=== PATIENT | male | born 1955 | race Caucasian/White ===

== ENCOUNTER → 2023-08-15 07:40 | Outpatient (REF) | payer MEDICARE, OTHER, SELFPAY | LOC: HWRAD 07:40 | PROVIDERS: ATTENDING PHYSICIAN Student in an Organized Health Care Education/Training Program; FAMILY PHYSICIAN Family Medicine | DX: R80.9 Proteinuria, unspecified (principal) | CPT/HCPCS: 76770 ==

== ENCOUNTER 2024-04-22 20:51 | Inpatient (IN) | payer MEDICARE, OTHER, SELFPAY ==
[2024-04-22] VITALS (23 sets, daily range): BP systolic 128–250; BP diastolic 63–132; BMI 35.0
[2024-04-22 18:11] LABS: % Basophils 0.7 % (0-2); % Eosinophils 6.3 % (0-6); % Immature Granulocytes 0.4 % (0-0.5); % Monocytes 8.1 % (1.7-9.3); % Neutrophils 68.5 % (42.2-75.2); Absolute Basophils 0.1 10^3/uL (0-0.2); Absolute Eosinophils 0.6 10^3/uL (0-0.7); Absolute Lymphocytes 1.5 10^3/uL (1.2-3.4); Absolute Monocytes 0.7 10^3/uL (0.1-0.6); Absolute Neutrophils 6.2 10^3/uL (1.4-6.5); Hematocrit 34.2 % (39.0-52.0); Hemoglobin 11.3 g/dL (13.0-18.0); Mean Corpuscular Hgb 31.6 pg (27.0-31.0); Mean Corpuscular Volume 95.5 fL (80.0-94.0); Mean Platelet Volume 10.6 fL (7.4-10.4); Nucleated Red Blood Cells % 0 % (-); Platelet Count 174 10^3/uL (130-400); Red Blood Cell Count 3.58 10^6/uL (4.70-6.10); Red Cell Dist. Width 13.7 % (11.5-14.5); White Blood Cell Count 9.1 10^3/uL (4.8-10.8)
[2024-04-22 18:29] LABS: ALT (SGPT) 16 U/L (0-50); AST (SGOT) 19 U/L (17-59); Albumin 2.9 g/dl (3.5-5.0); Alkaline Phosphatase 121 U/L (38-126); Blood Urea Nitrogen 42 mg/dl (9-20); Calcium 8.5 mg/dl (8.4-10.2); Carbon Dioxide 23 mmol/L (22-30); Chloride 110 mmol/L (98-107); Glucose 107 mg/dl (70-99); Potassium 4.5 mmol/L (3.5-5.1); Sodium 141 mmol/L (135-145); Total Bilirubin 0.4 mg/dl (0.2-1.3); Total Protein 5.3 g/dl (6.3-8.2); eGFR 16.11
[2024-04-22 18:30] LABS: Lipase 543 U/L (23-300)
[2024-04-22 18:35] LABS: NT-proBNP > 27000 pg/ml
[2024-04-22] MEDS: TRANDATE 20 MG IV (19:11)
--- NOTE | 2024-04-22 19:38 | ED.GENMED ---
History of Present Illness
General
Chief Complaint: Abdominal Pain
Source: patient
Exam Limitations: none
Time Seen by Provider: 04/22/24 18:52
Nursing documentation reviewed up to this point in time: agreed with
History of Present Illness
History of Present Illness:
69-year-old male presents with swelling in his scrotum abdominal distention cough shortness of breath chronic lower extremity edema hypertension followed by nephrology question of A-fib previously does not see cardiology started hydralazine recently
takes Bumex apparently, has swelling in his scrotum saw his PCP who thought he might have a hernia send him to see a surgeon told he did not have a hernia, states he gets short of breath when he walks cannot lie flat, weight is gone up although he
did lose some weight due to being on a weight loss medication
Past History
Past History
ED Past Medical History: HTN, Hypercholesterolemia and NIDDM; Negative CHF, IL or Valvular disease
Social History
Tobacco: Former smoker
Alcohol: None
Drug: None
Personal:
Living: with family
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
Review of Systems
Review of Systems
All Other Systems: Not applicable
Constitutional: Reports weight gain; Denies fever or fatigue
EENT: Reports no symptoms
Respiratory: Reports no symptoms
: Reports no symptoms
Musculoskeletal: Reports no symptoms
Skin: Reports no symptoms
Neurological: Reports no symptoms
Phy Exam
Physical Exam
Physical Exam:
Physical Exam
General: Hypertensive male sitting up
Neck: JVD
Heart: Regular with a S3
Lungs: Crackles
Abdomen: Obese with anasarca and the screw
Neuro: alert and oriented. no focal neurological deficits
Skin: no rash
Psychiatric: well kept. interactive and cooperative
Extremities: Edema is present
Course
Orders/Labs/Results
Orders:
Orders
04/22/24 18:04
Complete Blood Count/With Diff Urgent
Comprehensive Metabolic Panel Urgent
Lipase Urgent
Pro-BNP [NT-proBNP] Urgent
04/22/24 19:01
Bladder Scan- Treatment ONCE
04/22/24 19:02
Electrocardiogram (*1) Urgent
Reason for Study: Shortness of Breath
EKG- Treatment ONCE
04/22/24 19:05
Labetalol HCl [Trandate] 20 mg IV NOW STA
04/22/24 19:33
Troponin I Urgent
04/22/24 19:36
CR Chest Portable - 1 View Urgent
Comment:
Reason For Exam: soob
Reason Study Needs to be Portable: Patient Unstable
04/22/24 19:45
Bumetanide [Bumex] 2 mg IV NOW STA
Nicardipine 40 mg/200 ml [Cardene] 40 mg in 200 ml IV PER PROTOCOL
Initial dose in mg/hr, then titrate:: 5
Titrate to keep:: SBP 140 - 160 mmHg
Titrate by mg/hr:: 2.5 mg/hr
Frequency of titrations (minutes):: 5-15 minutes
Maximum dose in mg/hr:: 15
Begin to taper infusion when:: Remained at goal for 2hrs
Taper by mg/hr:: 2.5 mg/hr
Frequency of taper (minutes) if patient maintains goal:: every 15-30 minutes
Taper to off?: Yes
If infusion off & no longer maintaining goal:: Contact Provider
04/22/24 19:47
Urinalysis Urgent
Urine Protein/Creat Ratio (Random) [Protein/Creat Ratio (Random)] Routine
Abnormal Lab Results
04/22/24
18:04
RBC 3.58 L 10^6/uL
(4.70-6.10)
Hgb 11.3 L g/dL
(13.0-18.0)
Hct 34.2 L %
(39.0-52.0)
MCV 95.5 H fL
(80.0-94.0)
MCH 31.6 H pg
(27.0-31.0)
MPV 10.6 H fL
(7.4-10.4)
Absolute Monos (auto) 0.7 H 10^3/uL
(0.1-0.6)
Lymphocytes % 16.0 L %
(20.5-51.1)
Eosinophils % 6.3 H %
(0-6)
Chloride 110 H mmol/L
(98-107)
BUN 42 H mg/dl
(9-20)
Creatinine 3.9 H mg/dL
(0.7-1.3)
Glucose 107 H mg/dl
(70-99)
Total Protein 5.3 L g/dl
(6.3-8.2)
Albumin 2.9 L g/dl
(3.5-5.0)
Lipase 543 H U/L
(23-300)
04/22/24 18:04
04/22/24 18:04
Vital Signs
Initial and Last Documented VS:
Initial Vital Signs
Temp Pulse Resp BP Pulse Ox
97.9 F 83 20 250/131 96
04/22/24 17:48 04/22/24 17:48 04/22/24 17:48 04/22/24 17:48 04/22/24 17:48
Last Documented Vital Signs
Temp Pulse Resp BP Pulse Ox
97.9 F 87 21 228/132 95
04/22/24 17:48 04/22/24 19:05 04/22/24 19:05 04/22/24 19:11 04/22/24 19:05
MDM/Problems Addressed
Differential Diagnosis Includes:
Hypertensive urgency ACS CHF ACS late presentation IL conceivably pneumonia doubt PE
MDM/Problems Addressed:
Hypertension volume overload renal failure
Chronic conditions affecting care: HTN
Acute Exacerbation and/or Progression of Chronic Illness: HTN
*Radiology
Radiology exam reviewed: preliminary read by ED provider
*Pulse Oximetry
Patient hypoxic: yes
Comment: 92
*EKG
Interpreted by ED Provider?: Yes
Interpretation: abnormal
Comparison EKG: changes noted
Heart Rate: 7
Rate: normal
Rhythm: sinus
Ischemia: non-specific ST changes
*Escrow Secretary Interpretation
Rate: normal
Interpretation: normal
Heart Rate: 78
Rhythm: sinus
*Critical Care Note
Total Time (30-74mins, 75-104mins- exclusive of procedures): 32
Data Reviewed
Review of Other/Old Records Reveals: Other (Prior EKG)
Source: patient
Update Note
Update Note:
Update patient severely hypertensive exam to be volume overloaded, subacute onset EKG noted looks like he has anterior Q waves perhaps this is a the late presentation IL given labetalol, hydralazine earlier today p.o. will start Cardene, started on
IV diuretic
ED Attending Note
-
Portions of this chart may have been created with voice recognition software.� Occasional wrong word or��sound alike� substitutions may have occurred due to the inherent limitations of voice recognition software.
Discharge Plan
Interventions
Interventions:
*Risk Screen - Suicide Last Done: 04/22/24 17:48
*General Assessment Last Done: 04/22/24 17:48
*Neglect/Abuse Screening Last Done: 04/22/24 19:06
ED- Fall Risk Assessment Last Done: 04/22/24 17:48
*ED COVID-19 Vaccine History Last Done: 04/22/24 17:48
WG-Mxidtl-Feunnddesm Assessment Last Done: 04/22/24 19:06
Discharge Date and Time
Print Language: ARMENIAN
[2024-04-22] MEDS: CARDENE 200 IV (19:40)
[2024-04-22] MEDS: BUMEX 2 MG IV (19:53)
--- NOTE | 2024-04-22 20:05 | HPS.HSE ---
Family Physician
-
Family Physician:
Chief Complaint
-
SOB
History of Present Illness
Patient is a 69y M with PMH significant for hypertension and DM-II who presents to ED complaining of SOB that has been progressive over the past 2 weeks or so. Patient has chronic, wurumvjzw-zh-rfzudvw hypertension with recent medication
changes. He has noted progressive dyspnea with exertion as well as significant orthopnea over the past two weeks. He becomes significantly SOB when lying flat, but feels better with sitting or standing. He has chronic LE edema - though he states
he has not appreciated any significant change in his swelling recently. He does not monitor his weight regularly at home. Patient denies any chest pain, palpitations, lightheadedness, dizziness, fevers / chills, etc.
He denies any prior history of similar symptoms.
Medical History
Past Medical History
Past Medical History: Reports Other
Additional Past Medical History:
Hypertension
DM-II
Obesity
Past Surgical History: Reports Other
Additional Past Surgical History:
T&A
Social History
Tobacco: Former Smoker (Quit smoking 30 years ago. Approx 10 pack years total use.)
Alcohol: Occasional
Drug: None
Family History
Family History: Not pertinent
Allergies / Home Medications
Allergies reflects when Allergies were last updated in [facility].
Home Medications with original date entered in [facility]
Allergy/Medication List:
Allergies
Allergy/AdvReac Type Severity Reaction Status Date / Time
No Known Allergies Allergy Verified 04/22/24 17:56
Home Medications
aspirin 81 mg chewable tablet 81 mg PO DAILY 04/22/24
atorvastatin 20 mg tablet 20 mg PO HS 04/22/24
bumetanide 1 mg tablet 1.5 mg PO BID 04/22/24
carvedilol 25 mg tablet 25 mg PO BID 04/22/24
hydralazine 25 mg tablet 25 mg PO BID 04/22/24
hydrocodone 7.5 mg-acetaminophen 325 mg tablet 1 tab PO TIDPRN PRN arthritis pain 04/22/24
losartan 100 mg tablet 100 mg PO DAILY 04/22/24
tirzepatide 5 mg/0.5 mL subcutaneous pen injector (Mounjaro) 5 mg SC Q2W 04/22/24
Review of Systems
-
History Source: Patient
A 12 point ROS was completed and negative except as noted: Yes
Constitutional: Reports Fatigue; Denies Fever or Chills
EENT: Denies Sore Throat
Respiratory: Reports Trouble Breathing; Denies Cough
Cardiac: Denies Chest Pain or Palpitations
Abdomen/GI: Denies Abdominal Pain, Nausea, Vomiting or Diarrhea
: Denies Dysuria, Frequency or Flank Pain
Musculoskeletal: Reports Edema; Denies Joint Pain
Neurological: Denies Dizzy or Headache
Psych: Denies Depression or Anxiety
Physical Exam
Vital Signs
Vital Signs
Temp Pulse Resp BP Pulse Ox
97.9 F 87 21 219/102 95
04/22/24 17:48 04/22/24 19:05 04/22/24 19:05 04/22/24 19:53 04/22/24 19:05
Physical Exam
General: Other (69y M in mild distress due to dyspnea.)
HEENT: Moist mucous membranes, PERRLA and Other (No JVD.)
Respiratory: Other (Scattered coarse breath sounds. No wheezing.)
Cardiac: S1/S2 and Regular Rhythm; No Murmur
GI: Soft, Non Tender, Non Distended and Normal Bowel Sounds
Musculoskeletal: Other (4+ pitting edema extending into the groin / buttocks.)
Neuro: AO x 3
Laboratory Results
-
04/22/24 18:04
04/22/24 18:04
Laboratory Results
Total Bilirubin 0.4 mg/dl (0.2-1.3) 04/22/24 18:04
AST 19 U/L (17-59) 04/22/24 18:04
ALT 16 U/L (0-50) 04/22/24 18:04
Alkaline Phosphatase 121 U/L (38-126) 04/22/24 18:04
Troponin I Cancelled 04/22/24 19:03
Lipase 543 U/L (23-300) H 04/22/24 18:04
Impression/Plan
-
A/P: Patient is a 69y M with PMH significant for hypertension and DM-II who presents to ED complaining of SOB that has been progressive over the past 2 weeks.
Hypertensive Emergency
Acute Heart Failure - Unknown Type
- Admit to ICU for further evaluation and treatment.
- Patient presents with markedly elevated BP and evidence of end-organ impairment in the form of CHF and LIA.
- IV nicardipine started in the ED - continue for now and titrate as needed for BP control.
- IV diuresis and follow for clinical improvement.
- Check Echo.
- Cardiology and Nephrology consults.
- Adjust PO med regimen as needed for improved BP control and titrate off of IV infusions as able.
- Serial troponin to rule out new ischemia.
LIA on CKD IV
- SCr = 3.9 compared to recent baseline of 2.9.
- Followed by Nephrology as an outpatient.
- Hold losartan acutely.
- IV diuresis as noted above.
- Follow for changes in SCr.
DM-II
- Stable. Patient states that he started Mounjaro at the beginning of 2023.
- Significant weight loss initially and he was taken off of his insulin therapy.
- Follow glucose and cover with SSI as needed.
- Update A1C.
Obesity due to excess calories
- Weight loss over the past year on Mounjaro.
- Hold during inpatient stay but resume at discharge.
DVT Prophylaxis: Subcut Heparin
Code Status: Full
--- NOTE | 2024-04-22 20:22 | PTCARENOTE ---
Received patient AAOx3, following commands, reporting 2/10 pain in right ribs, tolerable for patient. Normal sinus, 80s, BP 120s/70s, normothermic. Palpable radial and pedal pulses b/l, no edema. On 15 liters midflow, saturating 98%, expiratory
wheeze noted. Abdomen soft, round, hypoactive bowel sounds. Gomez in place for retention, draining yellow urine. Skin intact, bruising throughout arms. PIVs and midline patent, WNL. Call menjivar within reach.
[2024-04-22 20:28] LABS: Troponin I 0.041 ng/ml
[2024-04-22 20:36] LABS: Urine Albumin 3+ (Neg - Trace); Urine Bilirubin Negative (Negative); Urine Character Clear (Clear); Urine Color Straw; Urine Glucose Trace (Negative); Urine Ketone Negative (Negative); Urine Leukocyte Negative (Negative); Urine Nitrite Negative (Negative); Urine Occult Blood 1+ (Negative); Urine Urobilinogen Negative (Neg - 1+)
[2024-04-22 21:00] LABS: Urine Squamous Cell None seen /LPF (Few)
[2024-04-22 21:01] LABS: Urine Red Blood Cell 0-2 /HPF (0-2); Urine White Cell None Seen /HPF (0-5)
[2024-04-22 21:39] LABS: Protein/creatinine Ratio 22.7; Urine Protein 750 mg/dl
[2024-04-22] MEDS: LIPITOR 20 MG PO (21:50)
[2024-04-22 21:53] LABS: INR 0.99; PT 13.6 Sec (11.4-14.6)
[2024-04-22 21:54] LABS: APTT 30.7 Sec (23.4-35.0)
[2024-04-22 21:58] LABS: Magnesium 2.2 mg/dl (1.6-2.3); Phosphorus 4.6 mg/dl (2.5-4.5)
--- NOTE | 2024-04-22 22:06 | PTCARENOTE ---
Received patient AAOx3, RAND, ambulated from stretcher to bed without any issues. Son at bedside. Normal sinus, 80s-90s, normothermic. Titrating cardene to maintain SBP 160-180. +3 b/l LE edema, weak palpable pedal pulses. Palpable radial pulses b/l.
+2 b/l hand edema. Lung sounds clear, diminished, 95% on 2 liters nasal cannula. Positive bowel sounds, patient reports BMs are regular. Urinal to void. Skin intact. PIVs patent, WNL. CHG bath done. Call menjivar within reach.
[2024-04-22 22:08] LABS: Troponin I 0.048 ng/ml
[2024-04-22 22:10] LABS: Glucose - Point of Care 193 mg/dl (70-99)
[2024-04-22 22:27] LABS: TSH Reflex To Free T4 3.01 uIU/ml (0.47-4.68)
[2024-04-23] VITALS (67 sets, daily range): BP systolic 120–189; BP diastolic 60–104; BMI 36.0
--- NOTE | 2024-04-23 | PTCARENOTE ---
Patient off cardene gtt. Otherwise patient assessment unchanged from previous, call menjivar within reach.
--- NOTE | 2024-04-23 05:19 | PTCARENOTE ---
Labs sent, patient restarted on cardene gtt for SBP of 188. Otherwise patient assessment unchanged from previous. Call menjivar within reach.
[2024-04-23 05:36] LABS: Hematocrit 30.1 % (39.0-52.0); Hemoglobin 9.9 g/dL (13.0-18.0); Mean Corp Hgb Conc. 32.9 g/dL (33.0-37.0); Mean Corpuscular Hgb 30.9 pg (27.0-31.0); Mean Corpuscular Volume 94.1 fL (80.0-94.0); Mean Platelet Volume 10.8 fL (7.4-10.4); Platelet Count 159 10^3/uL (130-400); Red Cell Dist. Width 13.5 % (11.5-14.5); White Blood Cell Count 7.1 10^3/uL (4.8-10.8)
[2024-04-23] MEDS: TYLENOL 650 MG PO (05:57)
[2024-04-23 06:00] LABS: Troponin I 0.082 ng/ml
[2024-04-23 06:03] LABS: Blood Urea Nitrogen 43 mg/dl (9-20); Calcium 8.1 mg/dl (8.4-10.2); Carbon Dioxide 23 mmol/L (22-30); Chloride 111 mmol/L (98-107); Estimated Creatinine Clearance 24 ml/min; Glucose 88 mg/dl (70-99); HDL Cholesterol 55 mg/dl; LDL Cholesterol, Calculated 48 mg/dl; Potassium 3.8 mmol/L (3.5-5.1); Sodium 140 mmol/L (135-145); Total Cholesterol 121 mg/dl (50-199); Triglyceride 90 mg/dl (10-149); Very Low Density Lipoprotein 18 mg/dl (0-30); eGFR 15.63
[2024-04-23 06:47] LABS: Hepatitis C Antibody Negative (Negative)
[2024-04-23 07:52] LABS: Glucose - Point of Care 88 mg/dl (70-99)
[2024-04-23] MEDS: NOVOLOG FLEXPEN-MODERATE RESISTANCE SC ×2 (08:02→12:27)
[2024-04-23] MEDS: COREG 25 MG PO ×2 (08:14→19:54)
[2024-04-23] MEDS: APRESOLINE 25 MG PO (08:14)
[2024-04-23] MEDS: HEPARIN 5000 UNITS SC (08:18)
--- NOTE | 2024-04-23 09:00 | W.CON.NEPH ---
Addendum entered and electronically signed by Monster Farrell, 04/23/24 09:24:
Will review echocardiogram which was completed this more
Will consider adding clonidine next for his hypertension as he remains tachycardic
Original Note:
Consultation
-
Date/Time Consultation Requested: 04/23/24 700 AM
Date/Time Consultation Performed: 04/23/24 900 AM
Requesting Provider: Dr. Estevez
Performing Provider: Dr. Farrell
Reason for Consultation: LIA/CKD 4/HTN crisis
Medical History
-
Chief Complaint: Acute kidney injury/hypertensive emergency
History of Present Illness:
The patient is a 69-year-old male with a past medical history of multidrug resistant hypertension of longstanding duration. In the outpatient setting he has been treated with a combination of Bumex carvedilol hydralazine and losartan. His blood
pressure has been very difficult to control in the outpatient setting. He also has a history of longstanding diabetes but is only currently maintained on Mounjaro. He does have a history of chronic kidney disease and maintains a baseline
creatinine in the low threes presumed due to his underlying hypertension and diabetes. He presented to the hospital last evening complaining of shortness of breath that has been progressive over the past 2 weeks. He notes associated orthopnea. On
presentation to the hospital his systolic blood pressure was over 200 and his diastolic blood pressure was greater than 100. He was transferred to the intensive care unit for hypertension emergency and placed on a Cardene drip. Of note he had
associated acute kidney injury with a creatinine of 4.
Past Medical History
Hypertension
DM-II
Obesity
Dyslipidemia
Obesity
Social History
Tobacco: Former Smoker
Alcohol: Occasional
Drug: None
Family History
No CKD
Allergies / Home Medications
Allergy/AdvReac Type Severity Reaction Status Date / Time
No Known Allergies Allergy Verified 04/22/24 17:56
�Medication �Instructions �Recorded �Confirmed �Type
aspirin 81 mg chewable tablet 81 mg PO DAILY 04/22/24 04/22/24 History
atorvastatin 20 mg tablet 20 mg PO HS 04/22/24 04/22/24 History
bumetanide 1 mg tablet 1.5 mg PO BID 04/22/24 04/22/24 History
carvedilol 25 mg tablet 25 mg PO BID 04/22/24 04/22/24 History
hydralazine 25 mg tablet 25 mg PO BID 04/22/24 04/22/24 History
hydrocodone 7.5 mg-acetaminophen 1 tab PO TIDPRN PRN arthritis pain 04/22/24 04/22/24 History
325 mg tablet
losartan 100 mg tablet 100 mg PO DAILY 04/22/24 04/22/24 History
tirzepatide 5 mg/0.5 mL 5 mg SC Q2W 04/22/24 04/22/24 History
subcutaneous pen injector
(Jam)
Review of Systems
-
History Source: Patient
All other systems: Negative unless noted
Respiratory: Other (Shortness of breath orthopnea)
Musculoskeletal: Edema (Chronic edema)
Physical Exam
Vital Signs
Vital Signs
Temp Pulse Resp BP Pulse Ox
98.2 F 92 18 169/86 94
04/23/24 08:18 04/23/24 08:14 04/23/24 06:30 04/23/24 08:14 04/23/24 06:30
Lab Results
04/23/24 05:17
04/23/24 05:17
WBC 7.1 10^3/uL (4.8-10.8) 04/23/24 05:17
RBC 3.20 10^6/uL (4.70-6.10) L 04/23/24 05:17
Hgb 9.9 g/dL (13.0-18.0) L 04/23/24 05:17
Hct 30.1 % (39.0-52.0) L 04/23/24 05:17
Plt Count 159 10^3/uL (130-400) 04/23/24 05:17
Sodium 140 mmol/L (135-145) 04/23/24 05:17
Potassium 3.8 mmol/L (3.5-5.1) 04/23/24 05:17
Chloride 111 mmol/L (98-107) H 04/23/24 05:17
Carbon Dioxide 23 mmol/L (22-30) 04/23/24 05:17
BUN 43 mg/dl (9-20) H 04/23/24 05:17
Creatinine 4.0 mg/dL (0.7-1.3) H 04/23/24 05:17
eGFR 15.63 04/23/24 05:17
Glucose 88 mg/dl (70-99) 04/23/24 05:17
Calcium 8.1 mg/dl (8.4-10.2) L 04/23/24 05:17
Phosphorus 4.6 mg/dl (2.5-4.5) H 04/22/24 21:35
Rny-B-Ihqevngxzos Pept > 58536 pg/ml 04/22/24 18:04
Albumin 2.9 g/dl (3.5-5.0) L 04/22/24 18:04
Physical Exam
General: AOx3, Nontoxic , NAD, obese
HEENT: PERRL, EOMI, Anicteric, Conjunctivae Clear, Ear/Nose Intact, Hearing Normal, Oropharynx Clear/Moist, Dentition Intact, Facial Symmetry, Neck Supple, Neck: Trachea Midline, No JVD and No Thyromegaly, no Bruits
Respiratory: clear breath sound to auscultation bilaterally with normal lung exersion
Cardiac: S1/S2 and Regular Rate/Rhythm
Breast: Deferred by me
Abdomen: Soft, Nontender, Nondistended, Normal Bowel Sounds and No Hepatosplenomegaly
Rectal: Deferred by Provider
Genito-urinary: No Costovertebral Tenderness
Extremities: No Clubbing, No Cyanosis and 3+ pitting edema up through buttocks
Skin: No Rash or open lesions, some chronic venous stasis changsed
Neuro: Nonfocal/Grossly Intact, CN II-XII (Intact) and Strength (Musculoskeletal exam 5 out of 5 both upper and lower extremities)
Hematologic/Lymphatic: No Cervical Lymphadenopathy, No Submandibular Lymphadenopathy and No Supraclavicular Lymphadenopathy
Psych: Mood/afflect pleasant, Insight/judgement good and Appropriate
Vascular: plus 1 pedal and radial pulses
Data Reviewed
-
Radiology: Image Personally Visualized and interpreted (Noted mild interstitial edematous changes)
Medical Tests (Nuc Med, Echo etc): Other (EKG report reviewed sinus rhythm with PACs nonspecific ST wave abnormalities at 86 beats per minute)
Labs: Labs Reviewed by me (BMP CBC urinalysis)
Old Records: Reviewed (Reviewed last office note from March 11, 2024 creatinine 2.9)
Critical Care Time (in minutes): 35
Assessment/Plan
-
Impression:
Hypertensive emergency
CHF decompensated
Acute on chronic kidney disease
Chronic kidney disease stage IV with baseline creatinine of 3
Diabetes with known diabetic nephropathy
Hyperlipidemia
History of multidrug resistant hypertension
Acute on chronic edema
Plan:
HTN emergency:
-Unfortunately ARB held in setting of acute renal
-Remains on Cardene drip 2.5mg
-Concur with IV diuresis
-Will adjust oral antihypertensive regimen, will increase hydralazine to 50 mg 3 times daily
-Losartan held in setting of acute kidney
LIA/CHF:
-Chronic kidney disease has been longstanding and likely due to diabetic nephropathy and hypertensive nephrosclerosis
-No acute dialysis requirement today but given volume overload and uncontrolled hypertension we may be moving closer to dialysis
-I believe a large component of his hypertension is his sodium avid state in setting of advancing renal
-Concur with IV diuresis
-Urinalysis reviewed and consistent with diabetic nephropathy, although 1+ blood noted as well
-Will eventually obtain renal artery duplex to assess for renal artery stenosis
Patient is critically ill we will with uncontrolled hypertension requiring Cardene drip in setting of worsening renal failure and congestive heart failure decompensation
Total critical care time was 35-minute
[2024-04-23 09:05] LABS: Glycohemoglobin (HgbA1c) 5.2 % (4.0-5.6)
[2024-04-23] MEDS: BUMEX 2 MG IV ×2 (09:12→15:47)
--- NOTE | 2024-04-23 09:15 | PTCARENOTE ---
Rec'd pt at 0800 awake alert and oriented resting in bed. States he feels better and was hoping to go home. Informed pt that he most likely will be staying several days to get BP under control. Verbalized understanding. Denies headache or dizziness.
Speech is clear. RAND. Gait was steady when he got up to go to the bathroom and no dizziness. Skin is pink wm and dry. Does have a few scabbed areas on shins. L flank area with raised rash with few non draining pustules. Pt does not know when it
started and denies any itching or pain. Dr. Patton aware. Respirs are sl shallow but non-labored on 3l nc with sats of 93-94%. BS are clear and pt denies feeling short of breath. Monitor SR 80-90's with 1st' avb pr. 24. + pulses. +2 arm edema and
+3 LE edema (which pt states he has had for a long time) Denies chest pain. Troponin sent as ordered. VS as documented. Rec'd pt on Cardene at 2.5 mg IV vai RAC IV site. After speaking with Dr. Farrell and Abdi -goal BP will be 150-170 syst.
Currently 155/59. AM meds given. Abd is round/obese with + BS. Denies nausea. Good appetite for breakfast. Per pt had a mod brown soft BM in the toilet. Denies need to void currently. Bumex given. Pt able to help reposition himself. Call menjivar in
reach and pt aware of plan of care. Currently ECHO being done. Nephrology, Deck Molder and Cardiology in to see pt.
[2024-04-23] MEDS: FLUSH (NSS) 2 FLUSH IV (09:16)
[2024-04-23] MEDS: CARDENE 200 IV (09:25)
[2024-04-23 10:40] LABS: Troponin I 0.087 ng/ml
--- NOTE | 2024-04-23 11:15 | PTCARENOTE ---
Pt stood to void then assisted oob to the chair. Pt states sitting up feels better to him. Bp's over the past hr have been in the 140's and Cardene gtt turned off. Call menjivar in reach. No other changes.
--- NOTE | 2024-04-23 11:21 | W.PN.HOSP.TC ---
Today's Communication/Plan
-
Diuresis
Blood pressure control
wean nicardipine gtt as tolerated
hep gtt as per Cardio
Assessment / Plan
Assessment / Plan
Physical Exam
General: No acute distress. Appears comfortable at this time.
HEENT: Moist mucous membranes, PERRLA, no JVD
Respiratory: Clear to auscultation b/l
Cardiac: S1/S2 and Regular Rhythm; No Murmur
GI: Soft, Non Tender, Non Distended and Normal Bowel Sounds
Musculoskeletal: 2+ pitting edema lower ext's
Neuro: AO x 3
Psych: Calm
A/P: Patient is a 69y M with PMH significant for hypertension and DM-II who presents to ED complaining of SOB that has been progressive over the past 2 weeks.
Hypertensive Emergency
Acute on Chronic HFpEF
- ICU admit
- Patient presents with markedly elevated BP and evidence of end-organ impairment in the form of CHF and LIA.
- IV nicardipine, wean as tolerated
- IV diuresis and follow for clinical improvement.
- ECHO appreciated preserved EF 50-55%
- Sour Bleaching Pleater, Cardiology, and Nephrology consults appreciated
- Troponin trended to peak 0.087, chest pain free, likely non-ischemic OK
- cont home coreg and hydralazine dose increased as below
LIA on CKD IV
- SCr = 3.9 compared to recent baseline of 2.9.
- Followed by Nephrology as an outpatient.
-Hydralazine increased to 50 mg TID from 25 mg BID, as per Nephro
- Hold losartan acutely.
- IV diuresis as noted above.
- Follow for changes in SCr.
Hx DM-II
- Stable. Patient states that he started Mounjaro at the beginning of 2023.
- Significant weight loss initially and he was taken off of his insulin therapy.
- A1C 5.2 non-diabetic
- Follow glucose and cover with SSI as needed for now, eventual dc routine FS if remains consistently euglycemic
Obesity due to excess calories
- Weight loss over the past year on Mounjaro.
- Hold during inpatient stay but resume at discharge.
Paroxysmal Atrial Fibrillation
-noted on telemetry as per cardio, started on hep gtt
DVT Prophylaxis: hep gtt
Code Status: Full
Total Critical Care Time__40___ minutes. I was immediately available to the patient and staff. I personally examined, reviewed labs, diagnostic images/reports, interpretations, treatment plans, discussed patient care with other providers and
patient, entered orders as appropriate and documented the medical record.
Anticipated Discharge: > 48 hours
Subjective/Interval History
-
Date of Service: April 23, 2024
No acute distress, sitting up comfortably in bed. Overall reports feeling well, significant improvement in symptoms since admission. Denies headache palpitations chest pain lightheadedness.
Objective Data
-
Labs:
Laboratory Results
04/23/24
05:17
WBC 7.1
Hgb 9.9 L
Hct 30.1 L
Plt Count 159
Sodium 140
Potassium 3.8
Chloride 111 H
Carbon Dioxide 23
BUN 43 H
Creatinine 4.0 H
Glucose 88
Calcium 8.1 L
Vital Signs:
Vital Signs
Temp Pulse Resp BP Pulse Ox
98.2 F 89 18 155/79 94
04/23/24 08:18 04/23/24 09:12 04/23/24 06:30 04/23/24 09:12 04/23/24 06:30
I&O
04/22/24 04/23/24 04/24/24
06:59 06:59 06:59
Intake Total 62.5 / 62.5
Output Total 600 / 600
Balance -537.5 / -537.5
--- NOTE | 2024-04-23 11:24 | CM ---
CM following re: discharge planning.
Discussed in Rounds, reviewed pt' chart, met with pt.
Pt is a 69 year old male, admitted with primary dx of SOB.
Pt reports he lives with spouse and a son in a 2SH, 1 step to enter, has 4 supportive children. Pt described himself as independent in all areas [employer]. No DME, VN or SNF history. Pt expressed his desire to return back home at discharge and he stated
his son will transport home.
PCP: Misbah Barton
Pharmacy: [facility].
D/C plan: home with anticipated no needs. Son to transport at discharge.
CM will follow with discharge plan updates as hospitalization progresses
[2024-04-23 12:22] LABS: Glucose - Point of Care 128 mg/dl (70-99)
--- NOTE | 2024-04-23 12:42 | CON.CAR ---
Addendum entered and electronically signed by Flavio Crane DO 04/23/24 14:42:
I saw and examined the patient.
The Electric Power Machine Operator's note was reviewed and I agree with the note.
Comment:
Briefly, patient is a pleasant 69-year-old male with a past medical history significant for hypertension diabetes mellitus type 2, CKD 4 likely progressing towards CKD 5 versus end-stage renal disease, hyperlipidemia who presents with worsening
shortness of breath, lower extremity swelling, scrotal edema. Patient found to have elevated BNP and evidence of heart failure on chest x-ray as well as hypertensive urgency. Prior creatinine outpatient 2.9 now elevated to 4.0. Patient followed
by nephrology as outpatient. Patient also reporting episodes of elevated heart rate at home on Apple Watch reporting AF. Telemetry demonstrates evidence of paroxysmal atrial arrhythmia likely AF RVR.
GENERAL: no acute distress, obese
EYE: sclera anicteric
NECK: Supple, + JVD
ENT: normal nose, moist mucosal membranes
CARDIAC: Regular rate and rhythm, +S1/S2, no murmur, rubs, or gallops
CHEST/PULMONARY: Normal effort, clear breath sounds
ABDOMEN: Soft, without focal tenderness; mild distension
NEUROLOGICAL: Alert and oriented x3
SKIN: Warm and dry, 4+ BL LE pitting edema
PSYCH: Normal and appropriate interaction.
Telemetry sinus rhythm PACs, PAF; EKG sinus rhythm PACs with nonspecific ST-T abnormality
A/P as below
Patient presenting with acute heart failure with preserved ejection fraction, hypertensive urgency, worsening renal function, PAF along with mild troponin elevation. For now, recommend diuresis and BP control as managed by nephrology.
Unfortunately, given patient's tenuous renal function, dialysis may be therapy in the future if unable to adequately diurese the patient however will defer this to nephrology. In the setting of PAF and [id number]: 3 (age, hypertension, diabetes)
recommend starting heparin gtt while hospitalized with plan for oral anticoagulation on discharge (dosing pending renal function). Echocardiogram showing normal heart function. In the setting of patient's elevated troponin, recommend ischemic
evaluation likely as outpatient. Continue to monitor on telemetry, replete electrolytes as needed with goal potassium greater than 4, magnesium greater than 2, monitor intake and output along with daily weights. Will follow along.
Discussed with nursing, nephrology
Original Note:
Consultation
Consultation Request
Date/Time Consultation Performed: 04/23/24
Requesting Provider: Dr. Estevez
Performing Provider: Carissa Harding PA-C for Dr. Crane
Reason for Consultation: CHF
Medical History
-
Chief Complaint: scrotal edema
History of Present Illness:
Patient is a 69-year-old male with past medical history of hypertension, type 2 diabetes, CKD, hyperlipidemia who presents to [facility] for evaluation of scrotal edema. He reports he has had some issues with chronic lower extremity edema,
however recently noted scrotal swelling which was new. He was seen by PCP for this and was referred to see a surgeon for possible hernia, but work up was negative. Over the last 2 days he noted orthopnea and he was referred to ER for evaluation.
ProBNP >70527 and CXR with pulm edema and small pleural effusions. He is on bumex 1.5mg BID as OP. He is followed by nephrology, Cr in 02/2024 was 2.9. BPs were also markedly elevated on arrival and he remains on IV cardene gtt.
PMH:
HTN
DM2
CKD4
Proteinuria
HLD
Obesity on mounjaro
Past Medical History
Past Medical History: Other (in HPI)
Social History
Tobacco: Former Smoker (remote)
Alcohol: None
Personal:
Living: With Family
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
Family History
Family History: Cancer
Allergies / Home Medications
Allergy/AdvReac Type Severity Reaction Status Date / Time
No Known Allergies Allergy Verified 04/22/24 17:56
�Medication �Instructions �Recorded �Confirmed �Type
aspirin 81 mg chewable tablet 81 mg PO DAILY Blood Clot 04/22/24 04/22/24 History
Prevention/Tx
atorvastatin 20 mg tablet 20 mg PO HS High Cholesterol 04/22/24 04/22/24 History
bumetanide 1 mg tablet 1.5 mg PO BID Fluid 04/22/24 04/22/24 History
Retention/Swelling
carvedilol 25 mg tablet 25 mg PO BID Blood Pressure 04/22/24 04/22/24 History
hydralazine 25 mg tablet 25 mg PO BID Blood Pressure 04/22/24 04/22/24 History
hydrocodone 7.5 mg-acetaminophen 1 tab PO TIDPRN PRN arthritis pain 04/22/24 04/22/24 History
325 mg tablet
losartan 100 mg tablet 100 mg PO DAILY Blood Pressure 04/22/24 04/22/24 History
tirzepatide 5 mg/0.5 mL 5 mg SC Q2W WEIGHT LOSS 04/22/24 04/22/24 History
subcutaneous pen injector
(aJm)
Review of Systems
-
History Source: Patient and Family
All other systems: Negative unless noted
Physical Exam
Vital Signs
Temp Pulse Resp BP Pulse Ox
98.3 F 74 20 148/79 96
04/23/24 12:15 04/23/24 11:30 04/23/24 11:30 04/23/24 11:30 04/23/24 11:30
Lab Results
04/23/24 05:17
04/23/24 05:17
Troponin I 0.087 ng/ml H* 04/23/24 09:31
Zyb-X-Iiysolaikyz Pept > 14032 pg/ml 04/22/24 18:04
Physical Exam
General: No Apparent Distress, Comfortable and Other (sitting in chair)
HEENT: Normocephalic, Anicteric and Moist Mucous Membranes
Respiratory: Clear and Non Labored Respirations
Cardiac: S1/S2 and Regular Rhythm
GI: Soft, Non Tender, Non Distended and Normal Bowel Sounds
Musculoskeletal: No Clubbing, No Cyanosis and Edema (4+ of B/L LE)
Skin: Warm and Dry
Neuro: AO x 3
Impression / Plan
-
Primary Crozer: none prior to admission
Assessment:
Presentation with scrotal edema, orthopnea
Acute on chronic LE edema
Hypertensive emergency
Acute HFpEF
LIA on CKD 4
Elevated troponin, suspected nonischemic myocardial injury
Paroxysmal atrial fibrillation
Anemia of chronic disease
Hypoalbuminemia
Multidrug resistant hypertension
DM2
CKD4
Diabetic nephropathy
Proteinuria
HLD
Obesity on mounjaro
ECHO 04/23/24: EF 50 to 55%, mild concentric LVH, aortic sclerosis, mild TR, PAP 51 mmHg, small pericardial effusion without evidence of hemodynamic compromise, pleural effusion present
Plan:
-Patient with known multidrug-resistant hypertension, type 2 diabetes with diabetic nephropathy, CKD stage IV and proteinuria presents to [facility] for evaluation of scrotal edema and orthopnea.
-Medically complex patient
-With evidence of acute CHF with proBNP greater than 27,000 and chest x-ray with pulmonary edema and small bilateral pleural effusions. Complicating matters is LIA on CKD stage IV with creatinine of 4.0 on 04/23. Continue IV bumex, currently on
2mg BID. Nephrology following. Discussed with patient and at bedside that depending on his response to diuretics, he may require dialysis
-With hypertensive emergency on arrival. Continue IV Cardene for blood pressure control, wean off as able. Continue coreg, hydralazine. antiHTN regimen limited by CKD - OP losartan on hold
-echo with results as above, reviewed with patient and 04/23
-review of telemetry with likely paroxysmal atrial fibrillation with RVR, currently in SR.
-[id number] score of 4 for age, DM, CHF, HTN. will initiate IV heparin for now. eventual transition to eliquis - dosing pending renal function. hgb 9.9
-may require AAD if remains with rapid paroxysms. already on coreg 25mg BID
-trops 0.08, trend to peak. no CP. EKG sinus rhythm with PACs and NSSTS. Will eventually require ischemic evaluation, however for now we will manage conservatively given LIA. add asa
-LDL 48. on lipitor 20mg QPM as OP
-consider albumin repletion
-tubigrip stockings
-hgbA1c 5.2%. on mounjaro as OP with recent weight loss, presently on hold
-CCT 37 minutes
-d/w nursing. d/w nephrology
Data Reviewed
-
EKG: Tracing Personally Visualized and interpreted
Radiology: Report Reviewed by me
Medical Tests (Nuc Med, Echo etc): Report Reviewed by me
Labs: Labs Reviewed by me
Old Records: Reviewed
--- NOTE | 2024-04-23 13:13 | PTCARENOTE ---
Cardiology in to speak with pt and . No changes in assessment. VS as documented.
--- NOTE | 2024-04-23 13:26 | CON.INTV ---
Consultation
Consultation Request
Date/Time Consultation Requested: 04/23/2024
Date/Time Consultation Performed: 04/23/2024
Requesting Provider: Dr. White
Performing Provider: Dr. Wm Patton
Reason for Consultation: Hypertensive emergency/acute on chronic heart failure
Medical History
-
History of Present Illness:
69-year-old man with past medical history significant for hypertension, type 2 diabetes, obesity who presents to the emergency room complaining of shortness of breath that has been progressive for the last 2 weeks.
Patient has history of difficult to control hypertension, diabetes, currently on pharmacological therapy for weight loss and diabetes with good response. He does report chronic lower extremity edema.
Does report orthopnea over the last 2 weeks.
Shortness of breath has been progressive to the point of minimal efforts with prompted him to come to the emergency room.
Denies any cough, wheezing or phlegm production.
Reports compliant with medication.
Denies any symptoms suggestive of infection.
Patient was found to have significant hypertension requiring IV infusion. He also was hypoxemic requiring oxygen supplementation and a chest x-ray consistent with pulmonary edema.
Transferred to the critical care unit for continuous antihypertensive infusion.
Past Medical History
Past Medical History: Other (See assessment and plan)
Social History
Tobacco: Former Smoker (Quit 30 years ago- 51-dewr-dwsx history)
Alcohol: Occasional
Drug: None
Family History
Family History: Reviewed & Not Pertinent
Allergies / Home Medications
Allergies
Allergy/AdvReac Type Severity Reaction Status Date / Time
No Known Allergies Allergy Verified 04/22/24 17:56
Home Medications
�Medication �Instructions �Recorded �Confirmed �Last Taken �Type
aspirin 81 mg chewable tablet 81 mg PO DAILY Blood Clot 04/22/24 04/22/24 04/22/24 History
Prevention/Tx
atorvastatin 20 mg tablet 20 mg PO HS High Cholesterol 04/22/24 04/22/24 04/21/24 History
bumetanide 1 mg tablet 1.5 mg PO BID Fluid 04/22/24 04/22/24 04/22/24 History
Retention/Swelling
carvedilol 25 mg tablet 25 mg PO BID Blood Pressure 04/22/24 04/22/24 04/22/24 History
hydralazine 25 mg tablet 25 mg PO BID Blood Pressure 04/22/24 04/22/24 04/22/24 History
hydrocodone 7.5 mg-acetaminophen 1 tab PO TIDPRN PRN arthritis pain 04/22/24 04/22/24 04/22/24 History
325 mg tablet
losartan 100 mg tablet 100 mg PO DAILY Blood Pressure 04/22/24 04/22/24 04/22/24 History
tirzepatide 5 mg/0.5 mL 5 mg SC Q2W WEIGHT LOSS 04/22/24 04/22/24 04/19/24 History
subcutaneous pen injector
Arielle)
Review of Systems
-
History Source: Patient
All other systems: Negative unless noted
Vitals / Labs / Diagnostic Testing
Vital Signs
Temp Pulse Resp BP Pulse Ox
98.3 F 74 20 148/79 96
04/23/24 12:15 04/23/24 11:30 04/23/24 11:30 04/23/24 11:30 04/23/24 11:30
Lab Data
04/23/24 05:17
04/23/24 05:17
Laboratory Results
04/22/24
21:35
PT 13.6
INR 0.99
APTT 30.7
Diagnostic Testing:
Physical Exam
-
HEENT: Normocephalic
Cardiovascular: Regular Rhythm and Peripheral Edema (2+ bilaterally)
Respiratory: Rales and Non-Labored Respirations
GI: Soft and Non Distended
Neurology: Awake and Alert
Skin: Warm and Good Color
General: Comfortable (At rest)
Assessment
-
69-year-old man with past medical history significant for diabetes, difficult to control hypertension, obesity admitted with shortness of breath, hypoxemia, admitted with shortness of breath and significantly increased blood [id number],
admitted for hypertensive emergency and IV antihypertensive infusion.
Hypertensive emergency
Normal TSH
Acute heart failure of unknown type
Mild troponin leak
proBNP greater than 56048
Acute on chronic kidney disease
Pulmonary hypertension on echocardiogram: Likely postcapillary.
Conditions present prior admission:
Type 2 diabetes on Mounjaro
Chronic kidney disease
Likely diabetic nephropathy.
Obesity
Assessment and plan:
Critically ill requiring IV infusion of antihypertensive due to acute heart failure/significant increased proBNP/chest x-ray with pulmonary edema and a small left pleural effusion and mild oxygen requirements from
-
Will titrate nicardipine drip to systolic pressure between 150 and 170 for the first 24 hours.
Continue IV diuretics
Restart outpatient medications orally and this will be titrated
Monitor renal function and electrolytes closely
Echocardiogram this admission noted: Normal LVEF 50 to 55%. Normal regional wall motion abnormality. Mild LVH. Normal biventricular size and function. Mild TR with pulmonary hypertension 51 mmHg. Small pericardial effusion.
Nephrology/cardiology has been consulted.
-
Wean off oxygen as able
-
Acute kidney disease on chronic kidney disease
Proteinuria noted on UA
Nephrology following patient
Evaluation for renal artery stenosis ongoing as well.
-
Type 2 diabetes on Mounjaro in the outpatient setting
Insulin sliding scale
-
Discussed with patient possibility of obstructive sleep apnea and he states that he is not sure whether he snores. High risk for it more so with difficult to control hypertension.
Would recommend outpatient evaluation. Information will be left in the chart.
-
Low-sodium diet
Increase activity as able once able to wean off nicardipine drip
-
Critical care statement: A total of 33 minutes of critical care time was provided for this patient today. This includes management of unstable vital signs, evaluation of the patient at bedside, reviewing the patient's pertinent medical records
including radiographs, microbiology, laboratory evaluations and discussion with primary team, critical care nursing, and respiratory therapy.
[2024-04-23] MEDS: DESENEX/MITRAZOL/ZEASORB 1 APPLIC TOPICAL (14:29)
--- NOTE | 2024-04-23 14:30 | PTCARENOTE ---
Resting oob in the chair since earlier. No complaints. VS as documented. Cardene gtt remains off. Denies shortness of breath and sats on RA remain 96% on RA. Complete CHG bath given. Pt ambulated in the room without difficulty. at the bedside.
Currently assisted back to bed. Legs elevated on pillows. Call menjivar in reach.
[2024-04-23] MEDS: LOW STRENGTH ASPIRIN 81 MG PO (15:47)
[2024-04-23] MEDS: APRESOLINE 50 MG PO ×2 (15:47→21:44)
[2024-04-23 16:06] LABS: APTT 30.3 Sec (23.4-35.0)
[2024-04-23 16:17] LABS: Troponin I 0.076 ng/ml
--- NOTE | 2024-04-23 16:30 | PTCARENOTE ---
Remains resting. No changes in assessment. VS as documented. BP starting to run in the 170's but just go his Hydralazine po an hr ago-will monitor for now and restart Cardene if needed. Pt expressing concern about how long he will be in the hospital
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 Support given. Call menjivar in reach. Pts and son at the bedside.
[2024-04-23] MEDS: NOVOLOG FLEXPEN-MODERATE RESISTANCE 1 UNITS SC (16:44)
[2024-04-23] MEDS: HEPARIN 25000 UNITS/250 ML IV (16:50)
[2024-04-23 16:53] LABS: Glucose - Point of Care 156 mg/dl (70-99)
--- NOTE | 2024-04-23 18:10 | PTCARENOTE ---
Pts BP despite the oral hydralazine has been running in the 170's. Cardene gtt restarted at 2.5 mg. Heparin gtt continues. No other changes. Voiding yellow urine in the urinal. Does prefer to get oob and use the urinal standing in the bathroom.
Currently resting in bed
--- NOTE | 2024-04-23 20:56 | PTCARENOTE ---
Received patient AAOx3, following commands, denying pain, ambulating to bathroom. Normal sinus 70s-80s, SBP maintained 150-170 with cardene gtt per protocol. Normothermic, +3 b/l lower extremity edema, +2 b/l hand edema. Weak pedal pulses b/l. 96%
on room air, lung sounds clear. Abdomen round, obese, soft, positive bowel sounds. Voiding in bathroom. Skin intact besides rash on right flank. PIVs patent, WNL. Heparin and cardene gtt ongoing, call menjivar within reach.
[2024-04-23] MEDS: LIPITOR 20 MG PO (21:46)
[2024-04-23 22:20] LABS: Glucose - Point of Care 130 mg/dl (70-99)
--- NOTE | 2024-04-23 23:35 | PTCARENOTE ---
Heparin gtt increased per protocol, next PTT 0530. Cardene gtt off. Otherwise patient assessment unchanged from previous, call menjivar within reach.
[2024-04-24] VITALS (35 sets, daily range): BP systolic 126–190; BP diastolic 64–105; BMI 35.7
--- NOTE | 2024-04-24 05:48 | PTCARENOTE ---
Labs sent, cardene gtt restarted. Otherwise patient assessment unchanged from previous, call menjivar within reach.
[2024-04-24 06:13] LABS: APTT 58.8 Sec (23.4-35.0)
[2024-04-24 06:15] LABS: Hematocrit 28.8 % (39.0-52.0); Hemoglobin 9.5 g/dL (13.0-18.0); Mean Corpuscular Hgb 31.4 pg (27.0-31.0); Mean Platelet Volume 10.5 fL (7.4-10.4); Platelet Count 175 10^3/uL (130-400); Red Blood Cell Count 3.03 10^6/uL (4.70-6.10); Red Cell Dist. Width 13.9 % (11.5-14.5); White Blood Cell Count 7.3 10^3/uL (4.8-10.8)
[2024-04-24 06:27] LABS: Blood Urea Nitrogen 44 mg/dl (9-20); Calcium 8.1 mg/dl (8.4-10.2); Carbon Dioxide 23 mmol/L (22-30); Chloride 109 mmol/L (98-107); Estimated Creatinine Clearance 23 ml/min; Glucose 119 mg/dl (70-99); Magnesium 2.3 mg/dl (1.6-2.3); Phosphorus 4.2 mg/dl (2.5-4.5); Potassium 3.5 mmol/L (3.5-5.1); Sodium 139 mmol/L (135-145); eGFR 15.17
[2024-04-24] MEDS: NOVOLOG FLEXPEN-MODERATE RESISTANCE SC ×3 (07:00→16:25)
--- NOTE | 2024-04-24 07:20 | W.PN.HOSP.TC ---
Today's Communication/Plan
-
Diuresis
Blood pressure control
hep gtt as per Cardio
downgrade to Tele
Assessment / Plan
Assessment / Plan
Physical Exam
General: No acute distress. Appears comfortable at this time.
HEENT: Moist mucous membranes, PERRLA, no JVD
Respiratory: Clear to auscultation b/l
Cardiac: S1/S2 and Regular Rhythm; No Murmur
GI: Soft, Non Tender, Non Distended and Normal Bowel Sounds
Musculoskeletal: 2+ pitting edema lower ext's
Neuro: AO x 3
Psych: Calm
A/P: Patient is a 69y M with PMH significant for hypertension and DM-II who presents to ED complaining of SOB that has been progressive over the past 2 weeks.
Hypertensive Emergency
Acute on Chronic HFpEF
- ICU admit
- Patient presents with markedly elevated BP and evidence of end-organ impairment in the form of CHF and LIA.
- IV nicardipine weaned off
- Bumex and Diuril as per Nephro
- ECHO appreciated preserved EF 50-55%
- Tape Cutter, Cardiology, and Nephrology consults appreciated
- Troponin trended to peak 0.087, chest pain free, likely non-ischemic MN
- cont home coreg and hydralazine dose increased as below
LIA on CKD IV
- SCr = 3.9 compared to recent baseline of 2.9.
- Followed by Nephrology as an outpatient.
-Hydralazine increased to 100 mg TID as per Nephro
- Hold losartan acutely.
- IV diuresis as noted above.
- Follow for changes in SCr.
Hx DM-II
- Stable. Patient states that he started Mounjaro at the beginning of 2023.
- Significant weight loss initially and he was taken off of his insulin therapy.
- A1C 5.2 non-diabetic
- Follow glucose and cover with SSI as needed for now, eventual dc routine FS if remains consistently euglycemic
Obesity due to excess calories
- Weight loss over the past year on Mounjaro.
- Hold during inpatient stay but resume at discharge.
Paroxysmal Atrial Fibrillation
-noted on telemetry as per cardio, started on hep gtt, cont
DVT Prophylaxis: hep gtt
Code Status: Full
I spent a total of 60 minutes with the patient or on the floor. More than 50% of this time involved counseling and coordination of care.
Anticipated Discharge: 24 - 48 hours
Subjective/Interval History
-
Date of Service: April 24, 2024
No acute distress resting comfortably in bed. Denies new acute issues
Objective Data
-
Labs:
Laboratory Results
04/23/24 04/24/24 04/24/24
23:03 05:38 12:00
WBC 7.3
Hgb 9.5 L
Hct 28.8 L
Plt Count 175
APTT 56.0 H 58.8 H Pending
Sodium 139
Potassium 3.5
Chloride 109 H
Carbon Dioxide 23
BUN 44 H
Creatinine 4.1 H*
Glucose 119 H
Calcium 8.1 L
Vital Signs:
Vital Signs
Temp Pulse Resp BP Pulse Ox
97.7 F 77 20 172/77 96
04/24/24 03:14 04/24/24 06:30 04/24/24 06:30 04/24/24 06:30 04/24/24 06:30
I&O
04/23/24 04/24/24 04/25/24
06:59 06:59 06:59
Intake Total 62.5 / 75.0 1273.5 / 1273.5
Output Total 600 / 600 1575 / 1575
Balance -537.5 / -525.0 -301.5 / -301.5
--- NOTE | 2024-04-24 08:00 | W.PN.NEPH.PH ---
Today's Communication / Plan
-
increase Bumex to 2 mg 3 times a day
500 mg of IV Diuril
Hydralazine 100 mg 3 times daily
Follow-up BMP
Initiated possible dialysis conversation to which he told me he is going home tomorrow
Assessment/Plan
-
Impression:
Hypertensive emergency
CHF decompensated
Acute on chronic kidney disease
Chronic kidney disease stage IV with baseline creatinine of 3
Diabetes with known diabetic nephropathy
Hyperlipidemia
History of multidrug resistant hypertension
Acute on chronic edema
Plan:
HTN emergency:
-Unfortunately ARB held in setting of acute renal
-Remains on Cardene drip 2.5mg
-Concur with IV diuresis
-Will adjust oral antihypertensive regimen, will increase hydralazine to 100 mg 3 times daily
-Losartan held in setting of acute kidney injury
-May need to Procardia but this will likely exacerbate edema
LIA/CHF:
-Chronic kidney disease has been longstanding and likely due to diabetic nephropathy and hypertensive nephrosclerosis
-Creatinine unchanged at 4.1
-Modest response to Bumex 2 mg IV twice daily as urine output only around 1500 cc, will increase to TID
-Echocardiogram reviewed pulmonary artery pressures of 51 small pericardial effusion normal LV function
-No acute dialysis requirement today but given volume overload and uncontrolled hypertension we may be moving closer to dialysis
-I believe a large component of his hypertension is his sodium avid state in setting of advancing renal
-Concur with IV diuresis but will provide 500mg IV diuril times one
-Urinalysis reviewed and consistent with diabetic nephropathy, although 1+ blood noted as well
-Will eventually obtain renal artery duplex to assess for renal artery stenosis
-Explained the patient that we may be approaching dialysis given massive volume overload and uncontrolled hypertension
-Patient responded to me that he is going home tomorrow no matter what
-I explained to him that he would be going to
Patient is critically ill we will with uncontrolled hypertension requiring Cardene drip in setting of worsening renal failure and congestive heart failure decompensation
Total critical care time was 35-minute
-
-
Date of Service: April 24, 2024
CC / HPI / ROS
-
Chief Complaint:
Acute kidney injury
Uncontrolled htn
History of Present Illness:
Blood pressure remains elevated on Cardene drip and multi hypertensive regimen
Creatinine unchanged to 4
Review of Systems:
Nonoliguric
No chest pain or reported shortness of
Weight slightly down
Labs
-
Labs:
WBC 7.3 10^3/uL (4.8-10.8) 04/24/24 05:38
RBC 3.03 10^6/uL (4.70-6.10) L 04/24/24 05:38
Hgb 9.5 g/dL (13.0-18.0) L 04/24/24 05:38
Hct 28.8 % (39.0-52.0) L 04/24/24 05:38
Plt Count 175 10^3/uL (130-400) 04/24/24 05:38
Sodium 139 mmol/L (135-145) 04/24/24 05:38
Potassium 3.5 mmol/L (3.5-5.1) 04/24/24 05:38
Chloride 109 mmol/L (98-107) H 04/24/24 05:38
Carbon Dioxide 23 mmol/L (22-30) 04/24/24 05:38
BUN 44 mg/dl (9-20) H 04/24/24 05:38
Creatinine 4.1 mg/dL (0.7-1.3) H* 04/24/24 05:38
eGFR 15.17 04/24/24 05:38
Glucose 119 mg/dl (70-99) H 04/24/24 05:38
Calcium 8.1 mg/dl (8.4-10.2) L 04/24/24 05:38
Phosphorus 4.2 mg/dl (2.5-4.5) 04/24/24 05:38
Xep-B-Ekpztwowhbi Pept > 51578 pg/ml 04/22/24 18:04
Albumin 2.9 g/dl (3.5-5.0) L 04/22/24 18:04
Physical Exam
-
Vital Signs:
Vital Signs
Temp Pulse Resp BP Pulse Ox
98.8 F 77 20 172/77 96
04/24/24 07:53 04/24/24 06:30 04/24/24 06:30 04/24/24 06:30 04/24/24 06:30
Cardiovascular:: Regular rate and rhythm
Respiratory:: Bilateral: Coarse
Lung Excursion:: Normal
Abdomen:: Nontender and Soft
Bowel Sounds:: Normal
Extremity Edema:: +2: Bilateral:
Gomez Catheter: No
[2024-04-24 08:12] LABS: Glucose - Point of Care 103 mg/dl (70-99)
[2024-04-24] MEDS: APRESOLINE PO (08:27)
[2024-04-24] MEDS: DIURIL 0.5 GRAM VIAL 0.5 GRAMS IV (08:44)
[2024-04-24] MEDS: STERILE WATER FOR INJECTION 18 ML IV (08:44)
[2024-04-24] MEDS: BUMEX 2 MG IV ×3 (08:45→21:40)
[2024-04-24] MEDS: LOW STRENGTH ASPIRIN 81 MG PO (08:45)
[2024-04-24] MEDS: APRESOLINE 100 MG PO ×3 (08:45→21:38)
[2024-04-24] MEDS: COREG 25 MG PO ×2 (08:45→20:35)
[2024-04-24] MEDS: DESENEX/MITRAZOL/ZEASORB 1 APPLIC TOPICAL ×2 (08:47→20:40)
--- NOTE | 2024-04-24 09:41 | W.PN.CARDCBS ---
Today's Communication / Plan
-
Diuretic therapy per nephrology for close monitoring
IV heparin while inpatient with intended oral anticoagulation on discharge pending renal function
Eventual ischemic evaluation as outpatient
Monitor on telemetry
Impression / Plan
-
Primary Grooming Assistant: none prior to admission, scheduled to see Dr. Maldonado ( follows with Dr Maldonado)
Assessment:
Presentation with scrotal edema, orthopnea
Acute on chronic LE edema, improving
Hypertensive emergency, improving
Acute HFpEF, improving
LIA on CKD 4
Elevated troponin, suspected nonischemic myocardial injury
Paroxysmal atrial fibrillation
Anemia of chronic disease
Hypoalbuminemia
Multidrug resistant hypertension
DM2
CKD4
Diabetic nephropathy
Proteinuria
HLD
Obesity on mounjaro
ECHO 04/23/24: EF 50 to 55%, mild concentric LVH, aortic sclerosis, mild TR, PAP 51 mmHg, small pericardial effusion without evidence of hemodynamic compromise, pleural effusion present
Plan:
-Patient with known multidrug-resistant hypertension, type 2 diabetes with diabetic nephropathy, CKD stage IV and proteinuria presents to [facility] for evaluation of scrotal edema and orthopnea.
-Medically complex patient
-With evidence of acute CHF with proBNP greater than 27,000 and chest x-ray with pulmonary edema and small bilateral pleural effusions. Complicating matters is LIA on CKD stage IV with creatinine of 4.0 on 04/23. Continue IV bumex, currently on
2mg BID. Nephrology following. Discussed with patient and at bedside that depending on his response to diuretics, he may require dialysis; minimal output 04/24 (~800 cc)
-With hypertensive emergency on arrival. Continue IV Cardene for blood pressure control, wean off as able. Continue coreg, hydralazine. antiHTN regimen limited by CKD - OP losartan on hold
-echo with results as above, reviewed with patient and 04/23
-review of telemetry with likely paroxysmal atrial fibrillation with RVR, currently in SR.
-[id number] score of 4 for age, DM, CHF, HTN. will initiate IV heparin for now. eventual transition to eliquis - dosing pending renal function. hgb 9.9
-may require AAD if remains with rapid paroxysms. already on coreg 25mg BID
-trops 0.08, trend to peak. no CP. EKG sinus rhythm with PACs and NSSTS. Will eventually require ischemic evaluation, however for now we will manage conservatively given LIA. add asa
-LDL 48. on lipitor 20mg QPM as OP
-consider albumin repletion
-tubigrip stockings
-hgbA1c 5.2%. on mounjaro as OP with recent weight loss, presently on hold
-d/w nursing. d/w nephrology
Progress Note - Grooming Assistant
Subjective
Date of Service: April 24, 2024
Patient seen and examined. No acute events overnight. Patient resting company in chair finishing breakfast. Patient notes no shortness of breath, chest pain, palpitations, or weakness. He notes persistent significant lower extremity swelling and
mild abdominal distention. No other complaints at this time. Telemetry demonstrates sinus rhythm/sinus tach with PACs. No recurrent AF at this time.
Objective
Labs:
04/24/24 05:38
04/24/24 05:38
Labs
Hgb 9.5 g/dL (13.0-18.0) L 04/24/24 05:38
Hct 28.8 % (39.0-52.0) L 04/24/24 05:38
Plt Count 175 10^3/uL (130-400) 04/24/24 05:38
PT 13.6 Sec (11.4-14.6) 04/22/24 21:35
INR 0.99 04/22/24 21:35
APTT 58.8 Sec (23.4-35.0) H 04/24/24 05:38
Sodium 139 mmol/L (135-145) 04/24/24 05:38
Potassium 3.5 mmol/L (3.5-5.1) 04/24/24 05:38
BUN 44 mg/dl (9-20) H 04/24/24 05:38
Creatinine 4.1 mg/dL (0.7-1.3) H* 04/24/24 05:38
Glucose 119 mg/dl (70-99) H 04/24/24 05:38
Troponins
04/22/24 04/22/24 04/22/24
19:03 19:52 21:35
Troponin I Cancelled 0.041 H* 0.048 H*
04/23/24 04/23/24 04/23/24
05:17 09:31 15:41
Troponin I 0.082 H* D 0.087 H* 0.076 H*
Vital Signs and I&O:
Vital Signs
Temp Pulse Resp BP Pulse Ox
98.8 F 75 23 153/77 96
04/24/24 07:53 04/24/24 09:15 04/24/24 08:48 04/24/24 09:00 04/24/24 08:15
Vital Signs
Temp Pulse Resp BP Pulse Ox
98.8 F 75 23 153/77 96
04/24/24 07:53 04/24/24 09:15 04/24/24 08:48 04/24/24 09:00 04/24/24 08:15
Intake & Output
04/22/24 04/23/24 04/24/24 04/25/24
06:59 06:59 06:59 06:59
Intake Total 62.5 / 75.0 1273.5 / 1300.0 53.0 / 53.0
Output Total 600 / 600 1575 / 1575 250 / 250
Balance -537.5 / -525.0 -301.5 / -275.0 -197.0 / -197.0
Physical Exam
Physical Exam
GENERAL: no acute distress, obese
EYE: sclera anicteric
NECK: Supple, + JVD
ENT: normal nose, moist mucosal membranes
CARDIAC: Regular rate and rhythm, +S1/S2, no murmur, rubs, or gallops
CHEST/PULMONARY: Normal effort, clear breath sounds
ABDOMEN: Soft, without focal tenderness; mild distension
NEUROLOGICAL: Alert and oriented x3
SKIN: Warm and dry, 4+ BL LE pitting edema
PSYCH: Normal and appropriate interaction.
--- NOTE | 2024-04-24 10:27 | W.PN.INTV ---
Today's Communication / Plan
Recommendations
Continue to titrate antihypertensive
Continue diuretics
Follow electrolytes and renal function
Transfer to telemetry
Signed off
Assessment
-
69-year-old man with past medical history significant for diabetes, difficult to control hypertension, obesity admitted with shortness of breath, hypoxemia, admitted with shortness of breath and significantly increased blood [id number],
admitted for hypertensive emergency and IV antihypertensive infusion.
Hypertensive emergency
Normal TSH
Acute heart failure of unknown type
Mild troponin leak
proBNP greater than 23831
Acute on chronic kidney disease
Pulmonary hypertension on echocardiogram: Likely postcapillary.
Conditions present prior admission:
Type 2 diabetes on Mounjaro
Chronic kidney disease
Likely diabetic nephropathy.
Obesity
Assessment and plan:
-
Clinically improved since admission.
No longer requiring nicardipine drip.
Oxygen supplementation has been weaned off.
Antihypertensives being adjusted by nephrology.
Diuretics ongoing
Worsening renal function-May need dialysis.
-
Echocardiogram this admission noted: Normal LVEF 50 to 55%. Normal regional wall motion abnormality. Mild LVH. Normal biventricular size and function. Mild TR with pulmonary hypertension 51 mmHg. Small pericardial effusion.
Cardiology continues to follow.
Currently on heparin drip with plans to convert to oral anticoagulation prior to discharge.
-
Wean off oxygen as able-currently requiring minimal
-
Acute kidney disease on chronic kidney disease
Proteinuria noted on UA-diabetic nephropathy
Worsening renal function as above.
Follow urinary output
-
Type 2 diabetes on Mounjaro in the outpatient setting
Insulin sliding scale
-
Discussed with patient possibility of obstructive sleep apnea and he states that he is not sure whether he snores. High risk for it more so with difficult to control hypertension.
Would recommend outpatient evaluation. Information will be left in the chart.
-
Low-sodium diet
-
Transfer to telemetry.
Critical care team will sign off. Please call pulmonary if any respiratory issues arise.
Subjective Dataa
Subjective Data
Date of Service:
Date of Service: April 24, 2024
Chief Complaint: Cigar Packer And Grader Follow Up (Hypertensive emergency/acute on chronic heart failure)
Subjective:
Patient offers no complaints
Denies headache, nausea or vomiting
Was able to ambulate to the restroom
Review of Systems
General: Fever (n)
Cardiopulmonary: Dyspnea (improved)
GI: Abdominal Pain (n) and Nausea (n)
Neuro: Headache (n)
Objective Data
Data Reviewed
Vital Signs / I&O / Oxygen:
Vital Signs
Temp Pulse Resp BP Pulse Ox
98.8 F 75 23 153/77 96
04/24/24 07:53 04/24/24 09:15 04/24/24 08:48 04/24/24 09:00 04/24/24 08:15
Intake and Output
04/23/24 04/24/24 04/25/24
06:59 06:59 06:59
Intake Total 62.5 / 75.0 1273.5 / 1300.0 321.0 / 321.0
Output Total 600 / 600 1575 / 1575 250 / 250
Balance -537.5 / -525.0 -301.5 / -275.0 71.0 / 71.0
SaO2 96
Nasal Cannula flow liters per 2
minute
Physical Exam
General: Comfortable
HEENT: Normocephalic
Cardiovascular: S1-S2 and Peripheral Edema
Respiratory: Clear and Non-Labored Respirations
GI: Soft and Distended (obese)
Neurology: Awake and No Motor Deficits
Skin: Warm
Labs/Micro/Reports
Lab Data
04/24/24 05:38
04/24/24 05:38
Laboratory Results
04/23/24 04/23/24 04/24/24
15:41 23:03 05:38
APTT 30.3 56.0 H 58.8 H
[2024-04-24 11:58] LABS: Glucose - Point of Care 121 mg/dl (70-99)
[2024-04-24 12:46] LABS: APTT 64.1 Sec (23.4-35.0)
[2024-04-24] MEDS: HEPARIN 25000 UNITS/250 ML IV (12:46)
--- NOTE | 2024-04-24 13:22 | PTCARENOTE ---
Per protocol, Heparin gtts increased to 1500units/hr. Cardene gtts remains off, SBP 140's
[2024-04-24 16:36] LABS: Glucose - Point of Care 108 mg/dl (70-99)
[2024-04-24 19:26] LABS: APTT 74.1 Sec (23.4-35.0)
--- NOTE | 2024-04-24 20:00 | PTCARENOTE ---
on assessment pt AAOx3, denies pain and SOB, independent in room, +3 lower extremity edema, hep gtt infusing per order, RA, voids in toilet, Rash on L flank, call menjivar in reach
[2024-04-24] MEDS: LIPITOR 20 MG PO (21:40)
[2024-04-24 22:02] LABS: Glucose - Point of Care 125 mg/dl (70-99)
[2024-04-25] VITALS (27 sets, daily range): BP systolic 113–180; BP diastolic 51–111; BMI 34.3
--- NOTE | 2024-04-25 | PTCARENOTE ---
no changes from prior assessment, pt ambulating around room independently, no c/o pain or SOB.
[2024-04-25 01:53] LABS: APTT 93.8 Sec (23.4-35.0)
--- NOTE | 2024-04-25 04:00 | PTCARENOTE ---
pt states unable to sleep due to being uncomfortable in the bed, pt ambulated to chair, c/o gas/bloating, PRN meds ordered, call menjivar in reach
[2024-04-25] MEDS: HEPARIN 25000 UNITS/250 ML IV (05:36)
[2024-04-25] MEDS: MYLICON 80 MG PO (05:38)
[2024-04-25 05:46] LABS: Hematocrit 28.7 % (39.0-52.0); Hemoglobin 9.3 g/dL (13.0-18.0); Mean Corp Hgb Conc. 32.4 g/dL (33.0-37.0); Mean Corpuscular Volume 95.7 fL (80.0-94.0); Mean Platelet Volume 10.5 fL (7.4-10.4); Platelet Count 184 10^3/uL (130-400); Red Cell Dist. Width 14.6 % (11.5-14.5); White Blood Cell Count 7.7 10^3/uL (4.8-10.8)
[2024-04-25 06:47] LABS: Blood Urea Nitrogen 48 mg/dl (9-20); Calcium 8.5 mg/dl (8.4-10.2); Carbon Dioxide 23 mmol/L (22-30); Chloride 109 mmol/L (98-107); Estimated Creatinine Clearance 25 ml/min; Glucose 111 mg/dl (70-99); Magnesium 2.4 mg/dl (1.6-2.3); Phosphorus 4.8 mg/dl (2.5-4.5); Potassium 3.7 mmol/L (3.5-5.1); Sodium 139 mmol/L (135-145); eGFR 16.62
[2024-04-25] MEDS: NOVOLOG FLEXPEN-MODERATE RESISTANCE SC ×2 (07:00→16:36)
--- NOTE | 2024-04-25 07:16 | W.PN.HOSP.TC ---
Today's Communication/Plan
-
Remains stable for downgrade to Tele
Diuresis Blood pressure control as per nephro
hep gtt as per Cardio
Melatonin bedtime for sleep
Insulin sliding scale discontinued
Ok to stop routine fingersticks
Assessment / Plan
Assessment / Plan
Physical Exam
General: No acute distress. Appears comfortable at this time.
HEENT: Moist mucous membranes, PERRLA, no JVD
Respiratory: Clear to auscultation b/l
Cardiac: S1/S2 and Regular Rhythm; No Murmur
GI: Soft, Non Tender, Non Distended and Normal Bowel Sounds
Musculoskeletal: 2+ pitting edema lower ext's
Neuro: AO x 3
Psych: Calm
A/P: Patient is a 69y M with PMH significant for hypertension and DM-II who presents to ED complaining of SOB that has been progressive over the past 2 weeks.
Hypertensive Emergency
Acute on Chronic HFpEF
- ICU admit downgraded to Tele
- Patient presents with markedly elevated BP and evidence of end-organ impairment in the form of CHF and LIA.
- IV nicardipine weaned off
- Bumex and Diuril as per Nephro
- ECHO appreciated preserved EF 50-55%
- Statistical Programmer Analyst, Cardiology, and Nephrology consults appreciated
- Troponin trended to peak 0.087, chest pain free, likely non-ischemic NE
- cont home coreg and hydralazine dose increased as below
LIA on CKD IV
- Cr peaked 4.1, trending down
- Followed by Nephrology as an outpatient.
-Hydralazine increased to 100 mg TID and Procardia 30 mg BID as per Nephro
- Hold losartan acutely.
- IV diuresis as noted above.
Hx DM-II (patient no longer diabetic)
- Stable. Patient states that he started Mounjaro at the beginning of 2023.
- Significant weight loss initially and he was taken off of his insulin therapy.
- updated A1C 5.2 non-diabetic
- Consistently Euglycemic with minimal need for insulin correction, ok to discontinue sliding scale and routine fingersticks
Obesity due to excess calories
- Weight loss over the past year on Mounjaro.
- Hold during inpatient stay but resume at discharge.
Paroxysmal Atrial Fibrillation
-noted on telemetry as per cardio, started on hep gtt, cont
-eventual transition to doac as per cardio
Poor Sleep
-bedtime Melatonin 3mg
DVT Prophylaxis: hep gtt
Code Status: Full
I spent a total of 50 minutes with the patient or on the floor. More than 50% of this time involved counseling and coordination of care.
Anticipated Discharge: 24 - 48 hours
Subjective/Interval History
-
Date of Service: April 25, 2024
No acute distress. Overall reports feeling well but poor sleep.
Objective Data
-
Labs:
Laboratory Results
04/24/24 04/25/24 04/25/24
18:53 01:31 05:31
WBC 7.7
Hgb 9.3 L
Hct 28.7 L
Plt Count 184
APTT 74.1 H 93.8 H
Sodium 139
Potassium 3.7
Chloride 109 H
Carbon Dioxide 23
BUN 48 H
Creatinine 3.8 H
Glucose 111 H
Calcium 8.5
Vital Signs:
Vital Signs
Temp Pulse Resp BP Pulse Ox
98.1 F 73 23 165/83 94
04/25/24 03:25 04/25/24 06:00 04/24/24 08:48 04/25/24 06:00 04/25/24 06:19
I&O
04/24/24 04/25/24 04/26/24
06:59 06:59 06:59
Intake Total 1273.5 / 1300.0 620.0 / 620.0
Output Total 1575 / 1575 1650 / 1650
Balance -301.5 / -275.0 -1030.0 / -1030.0
--- NOTE | 2024-04-25 07:56 | W.PN.NEPH.PH ---
Today's Communication / Plan
-
Add Procardia 30 mg twice daily
Maintain aggressive diuresis with IV Bumex and Diuril
Assessment/Plan
-
Impression:
Hypertensive emergency
CHF decompensated
Acute on chronic kidney disease
Chronic kidney disease stage IV with baseline creatinine of 3
Diabetes with known diabetic nephropathy
Hyperlipidemia
History of multidrug resistant hypertension
Acute on chronic edema
Plan:
HTN emergency:
-Unfortunately ARB held in setting of acute renal
-Remains on Cardene drip 2.5mg
-Concur with IV diuresis
-Will adjust oral antihypertensive regimen, will increase hydralazine to 100 mg 3 times daily
-Losartan held in setting of acute kidney injury
-May need to Procardia but this will likely exacerbate edema
LIA/CHF:
-Chronic kidney disease has been longstanding and likely due to diabetic nephropathy and hypertensive nephrosclerosis
-Patient is now off Cardene drip but blood pressures remain elevated
-Creatinine down to 3.8
-Maintain Bumex 2 mg IV 3 times daily with 500mg IV diuril support daily
-Will add Procardia XL 30 mg twice daily today
-Echocardiogram reviewed pulmonary artery pressures of 51 small pericardial effusion normal LV function
-No acute dialysis requirement today but given volume overload and uncontrolled hypertension we may be moving closer to dialysis
-I believe a large component of his hypertension is his sodium avid state in setting of advancing renal
-Urinalysis reviewed and consistent with diabetic nephropathy, although 1+ blood noted as well
-Will eventually obtain renal artery duplex to assess for renal artery stenosis if bp remains elevated
-Previously Explained the patient that we may be approaching dialysis given massive volume overload and uncontrolled hypertension
-
-
Date of Service: April 25, 2024
CC / HPI / ROS
-
Chief Complaint:
Acute kidney injury
Uncontrolled htn
History of Present Illness:
Blood pressure remains elevated on multi Rx hypertensive regimen
Creatinine down to 3 point
Review of Systems:
Nonoliguric
No chest pain or reported shortness of
Weight slightly down
Labs
-
Labs:
WBC 7.7 10^3/uL (4.8-10.8) 04/25/24 05:31
RBC 3.00 10^6/uL (4.70-6.10) L 04/25/24 05:31
Hgb 9.3 g/dL (13.0-18.0) L 04/25/24 05:31
Hct 28.7 % (39.0-52.0) L 04/25/24 05:31
Plt Count 184 10^3/uL (130-400) 04/25/24 05:31
Sodium 139 mmol/L (135-145) 04/25/24 05:31
Potassium 3.7 mmol/L (3.5-5.1) 04/25/24 05:31
Chloride 109 mmol/L (98-107) H 04/25/24 05:31
Carbon Dioxide 23 mmol/L (22-30) 04/25/24 05:31
BUN 48 mg/dl (9-20) H 04/25/24 05:31
Creatinine 3.8 mg/dL (0.7-1.3) H 04/25/24 05:31
eGFR 16.62 04/25/24 05:31
Glucose 111 mg/dl (70-99) H 04/25/24 05:31
Calcium 8.5 mg/dl (8.4-10.2) 04/25/24 05:31
Phosphorus 4.8 mg/dl (2.5-4.5) H 04/25/24 05:31
Tmo-Y-Fnmjmqwezcl Pept > 96276 pg/ml 04/22/24 18:04
Albumin 2.9 g/dl (3.5-5.0) L 04/22/24 18:04
Physical Exam
-
Vital Signs:
Vital Signs
Temp Pulse Resp BP Pulse Ox
98.1 F 73 23 165/83 94
04/25/24 03:25 04/25/24 06:00 04/24/24 08:48 04/25/24 06:00 04/25/24 06:19
Cardiovascular:: Regular rate and rhythm
Respiratory:: Bilateral: Coarse
Lung Excursion:: Normal
Abdomen:: Nontender and Soft
Bowel Sounds:: Normal
Extremity Edema:: +2: Bilateral:
Gomez Catheter: No
[2024-04-25] MEDS: PROCARDIA XL (EXTENDED RELEASE) 30 MG PO ×2 (09:00→19:14)
[2024-04-25] MEDS: BUMEX 2 MG IV ×3 (09:00→22:53)
[2024-04-25] MEDS: DIURIL 0.5 GRAM VIAL 0.5 GRAMS IV (09:00)
[2024-04-25] MEDS: LOW STRENGTH ASPIRIN 81 MG PO (09:00)
[2024-04-25] MEDS: COREG 25 MG PO ×2 (09:00→19:14)
[2024-04-25] MEDS: STERILE WATER FOR INJECTION 18 ML IV (09:00)
[2024-04-25] MEDS: APRESOLINE 100 MG PO ×3 (09:00→22:52)
[2024-04-25] MEDS: DESENEX/MITRAZOL/ZEASORB 1 APPLIC TOPICAL ×2 (09:01→19:15)
--- NOTE | 2024-04-25 10:10 | PTCARENOTE ---
Rec'd pt at 0700. Pt AAOx3, sitting OOB in chair, ambulatory in room. Monitor SR with PACs/sinus arrhythmia. SBP 170-180's this am, meds adjusted by .
--- NOTE | 2024-04-25 10:15 | W.PN.CARDCBS ---
Today's Communication / Plan
-
IV diuresis with Bumex, Diuril, Procardia for blood pressure, per nephrology
Improve blood pressure control
Monitor on telemetry
Heart failure education including fluid restriction, salt reduction
Impression / Plan
-
Primary [facility]: none prior to admission, scheduled to see Dr. Maldonado ( follows with Dr Maldonado)
Assessment:
Presentation with scrotal edema, orthopnea
Acute on chronic LE edema, improving
Hypertensive emergency, improving
Acute HFpEF, improving
LIA on CKD 4
Elevated troponin, suspected nonischemic myocardial injury
Paroxysmal atrial fibrillation
Anemia of chronic disease
Hypoalbuminemia
Multidrug resistant hypertension
DM2
CKD4
Diabetic nephropathy
Proteinuria
HLD
Obesity on mounjaro
ECHO 04/23/24: EF 50 to 55%, mild concentric LVH, aortic sclerosis, mild TR, PAP 51 mmHg, small pericardial effusion without evidence of hemodynamic compromise, pleural effusion present
Plan:
-Patient with known multidrug-resistant hypertension, type 2 diabetes with diabetic nephropathy, CKD stage IV and proteinuria presents to [facility] for evaluation of scrotal edema and orthopnea.
-Medically complex patient
-With evidence of acute CHF with proBNP greater than 27,000 and chest x-ray with pulmonary edema and small bilateral pleural effusions. Complicating matters is LIA on CKD stage IV with creatinine of 4.0 on 04/23. Continue IV bumex, currently on
2mg BID, added Diuril, Procardia 30 mg twice daily. Nephrology following. Discussed with patient and at bedside that depending on his response to diuretics, he may require dialysis; minimal output 04/24 (~800 cc), improved output 04/25/2024
roughly 1 L
-With hypertensive emergency on arrival. Continue IV Cardene for blood pressure control, wean off as able. Continue coreg, hydralazine. antiHTN regimen limited by CKD - OP losartan on hold
-echo with results as above, reviewed with patient and 04/23
-review of telemetry with likely paroxysmal atrial fibrillation with RVR, currently in SR.
-[id number] score of 4 for age, DM, CHF, HTN. will initiate IV heparin for now. eventual transition to eliquis - dosing pending renal function. hgb 9.9
-may require AAD if remains with rapid paroxysms. already on coreg 25mg BID
-trops 0.08, trend to peak. no CP. EKG sinus rhythm with PACs and NSSTS. Will eventually require ischemic evaluation, however for now we will manage conservatively given LIA. add asa
-LDL 48. on lipitor 20mg QPM as OP
-consider albumin repletion
-tubigrip stockings
-hgbA1c 5.2%. on mounjaro as OP with recent weight loss, presently on hold
-d/w nursing. d/w nephrology
Progress Note - [facility]
Subjective
Date of Service: April 25, 2024
Patient seen and examined. No acute events overnight. Patient resting comfortably in bed. Patient reporting mild improvement in lower extremity swelling. Of note, patient reporting significant fluid intake as outpatient including roughly 2 L of
iced tea daily. Patient denies any chest pain, shortness of breath, palpitations, or weakness. Telemetry demonstrating sinus rhythm with PACs.
Objective
Labs:
04/25/24 05:31
04/25/24 05:31
Labs
Hgb 9.3 g/dL (13.0-18.0) L 04/25/24 05:31
Hct 28.7 % (39.0-52.0) L 04/25/24 05:31
Plt Count 184 10^3/uL (130-400) 04/25/24 05:31
PT 13.6 Sec (11.4-14.6) 04/22/24 21:35
INR 0.99 04/22/24 21:35
APTT 93.8 Sec (23.4-35.0) H 04/25/24 01:31
Sodium 139 mmol/L (135-145) 04/25/24 05:31
Potassium 3.7 mmol/L (3.5-5.1) 04/25/24 05:31
BUN 48 mg/dl (9-20) H 04/25/24 05:31
Creatinine 3.8 mg/dL (0.7-1.3) H 04/25/24 05:31
Glucose 111 mg/dl (70-99) H 04/25/24 05:31
Troponins
04/22/24 04/22/24 04/22/24
19:03 19:52 21:35
Troponin I Cancelled 0.041 H* 0.048 H*
04/23/24 04/23/24 04/23/24
05:17 09:31 15:41
Troponin I 0.082 H* D 0.087 H* 0.076 H*
Vital Signs and I&O:
Vital Signs
Temp Pulse Resp BP Pulse Ox
98.1 F 75 23 172/81 94
04/25/24 03:25 04/25/24 09:15 04/24/24 08:48 04/25/24 09:00 04/25/24 06:19
Vital Signs
Temp Pulse Resp BP Pulse Ox
98.1 F 75 23 172/81 94
04/25/24 03:25 04/25/24 09:15 04/24/24 08:48 04/25/24 09:00 04/25/24 06:19
Intake & Output
04/23/24 04/24/24 04/25/24 04/26/24
06:59 06:59 06:59 06:59
Intake Total 62.5 / 75.0 1273.5 / 1300.0 620.0 / 635.0 45 / 45
Output Total 600 / 600 1575 / 1575 1650 / 1650
Balance -537.5 / -525.0 -301.5 / -275.0 -1030.0 / -1015.0 45 / 45
Physical Exam
Physical Exam
GENERAL: no acute distress, obese
EYE: sclera anicteric
NECK: Supple, + JVD
ENT: normal nose, moist mucosal membranes
CARDIAC: Regular rate and rhythm, +S1/S2, no murmur, rubs, or gallops
CHEST/PULMONARY: Normal effort, clear breath sounds
ABDOMEN: Soft, without focal tenderness; mild distension
NEUROLOGICAL: Alert and oriented x3
SKIN: Warm and dry, 4+ BL LE pitting edema
PSYCH: Normal and appropriate interaction.
[2024-04-25] MEDS: NOVOLOG FLEXPEN-MODERATE RESISTANCE 1 UNITS SC (12:09)
[2024-04-25 12:20] LABS: Glucose - Point of Care 158 mg/dl (70-99)
[2024-04-25 16:47] LABS: Glucose - Point of Care 139 mg/dl (70-99)
--- NOTE | 2024-04-25 17:12 | PTCARENOTE ---
BP's improved throughout shift. Family in to visit, updated.
--- NOTE | 2024-04-25 18:53 | PTCARENOTE ---
on assessment pt AAOx3, denies pain and SOB, no complaints at this time, independent in room, +3 lower extremity edema, heels elevated while in bed, hep gtt infusing per order, RA, voids in toilet, Rash on L flank, call menjivar in reach
[2024-04-25] MEDS: MELATONIN 3 MG PO (22:52)
[2024-04-25] MEDS: LIPITOR 20 MG PO (22:53)
[2024-04-26] VITALS (12 sets, daily range): BP systolic 102–143; BP diastolic 46–107; BMI 34.4
[2024-04-26] MEDS: HEPARIN 25000 UNITS/250 ML IV (00:09)
[2024-04-26 04:30] LABS: Hematocrit 28.6 % (39.0-52.0); Hemoglobin 9.3 g/dL (13.0-18.0); Mean Corp Hgb Conc. 32.5 g/dL (33.0-37.0); Mean Corpuscular Volume 95.3 fL (80.0-94.0); Mean Platelet Volume 10.6 fL (7.4-10.4); Platelet Count 192 10^3/uL (130-400); Red Cell Dist. Width 14.6 % (11.5-14.5); White Blood Cell Count 7.5 10^3/uL (4.8-10.8)
[2024-04-26 04:41] LABS: APTT 84.3 Sec (23.4-35.0)
[2024-04-26 05:47] LABS: Blood Urea Nitrogen 50 mg/dl (9-20); Calcium 8.5 mg/dl (8.4-10.2); Carbon Dioxide 23 mmol/L (22-30); Chloride 109 mmol/L (98-107); Estimated Creatinine Clearance 19 ml/min; Glucose 129 mg/dl (70-99); Magnesium 2.4 mg/dl (1.6-2.3); Phosphorus 5.1 mg/dl (2.5-4.5); Potassium 3.7 mmol/L (3.5-5.1); Sodium 139 mmol/L (135-145); eGFR 12.25
[2024-04-26] MEDS: DESENEX/MITRAZOL/ZEASORB 1 APPLIC TOPICAL (08:11)
[2024-04-26] MEDS: LOW STRENGTH ASPIRIN 81 MG PO (08:11)
[2024-04-26] MEDS: COREG 25 MG PO (08:11)
[2024-04-26] MEDS: PROCARDIA XL (EXTENDED RELEASE) 30 MG PO (08:16)
[2024-04-26] MEDS: APRESOLINE 100 MG PO ×2 (08:17→16:07)
[2024-04-26] MEDS: DIURIL 0.5 GRAM VIAL 0.5 GRAMS IV (08:17)
[2024-04-26] MEDS: BUMEX 2 MG IV ×2 (08:17→16:08)
[2024-04-26] MEDS: STERILE WATER FOR INJECTION 18 ML IV (08:18)
--- NOTE | 2024-04-26 08:53 | W.PN.NEPH.PH ---
Today's Communication / Plan
-
Discussed with patient's
Assessment/Plan
-
Impression:
Hypertensive emergency
CHF decompensated
Acute on chronic kidney disease
Chronic kidney disease stage IV with baseline creatinine of 3
Diabetes with known diabetic nephropathy
Hyperlipidemia
History of multidrug resistant hypertension
Acute on chronic edema
Anemia of chronic disease
Plan:
LIA/CHF:
-Chronic kidney disease has been longstanding and likely due to diabetic nephropathy and hypertensive nephrosclerosis nephrotic range proteinuria
Cardene drip status post
-Creatinine up to 4.9 from 3.8
-Maintain Bumex 2 mg IV 3 times daily but discontinue 500mg IV diuril for now/long-term will need to be on p.o. thiazide
-
-Echocardiogram reviewed pulmonary artery pressures of 51 small pericardial effusion normal LV function
Protein creatinine ratio 22 g with albumin of 2.9 significantly contributing to his decreased effective arterial blood volume. Significant volume overload contributing to his hypertension as well although improved
At this point with his current GFR and creatinine of 4.9, I suggested to him that dialysis would be the best plan going forward . if we continue with high-dose diuretics , renal function will continue to decline and still only achieving minimal
diuresis despite him losing 7 kg since admission
We a long discussion about dialysis today , as he had with most of the renal team but is adamant about being discharged by the end of the week for a family gathering in [place]
There is no acute need for dialysis from an acid base standpoint but certainly from a volume standpoint we are running out of options
discussed the plan with the ICU nurse
Total Time Spent with Patient (in minutes): 31 minutes spent in critical care time
-
-
Date of Service: April 26, 2024
CC / HPI / ROS
-
Chief Complaint:
Acute kidney injury
Uncontrolled htn
History of Present Illness:
Blood pressures improved off Cardene drip
Volume status still initially
Review of Systems:
Nonoliguric
No chest pain or reported shortness of
Weight down 7 kg
Labs
-
Labs:
WBC 7.5 10^3/uL (4.8-10.8) 04/26/24 04:19
RBC 3.00 10^6/uL (4.70-6.10) L 04/26/24 04:19
Hgb 9.3 g/dL (13.0-18.0) L 04/26/24 04:19
Hct 28.6 % (39.0-52.0) L 04/26/24 04:19
Plt Count 192 10^3/uL (130-400) 04/26/24 04:19
Sodium 139 mmol/L (135-145) 04/26/24 04:19
Potassium 3.7 mmol/L (3.5-5.1) 04/26/24 04:19
Chloride 109 mmol/L (98-107) H 04/26/24 04:19
Carbon Dioxide 23 mmol/L (22-30) 04/26/24 04:19
BUN 50 mg/dl (9-20) H 04/26/24 04:19
Creatinine 4.9 mg/dL (0.7-1.3) H* 04/26/24 04:19
eGFR 12.25 04/26/24 04:19
Glucose 129 mg/dl (70-99) H 04/26/24 04:19
Calcium 8.5 mg/dl (8.4-10.2) 04/26/24 04:19
Phosphorus 5.1 mg/dl (2.5-4.5) H 04/26/24 04:19
Yqp-J-Htvainiiflz Pept > 73205 pg/ml 04/22/24 18:04
Albumin 2.9 g/dl (3.5-5.0) L 04/22/24 18:04
Physical Exam
-
Vital Signs:
Vital Signs
Temp Pulse Resp BP Pulse Ox
98.1 F 78 20 135/67 98
04/26/24 07:32 04/26/24 08:17 04/25/24 18:59 04/26/24 08:17 04/25/24 19:34
Cardiovascular:: Regular rate and rhythm
Respiratory:: Bilateral: CTA
Lung Excursion:: Normal
Abdomen:: Soft
Bowel Sounds:: Normal
Extremity Edema:: +3: Bilateral: (Anasarca)
Gomez Catheter: No
--- NOTE | 2024-04-26 08:58 | PTCARENOTE ---
recd 0730 heparin gtt as ordered, infusing. in fair spirits, anxious for plan - concerned about vacation beginning friday. Assessed as noted. bilat hand edema pt reports improved today. weight obtained. meds as ordered. aware of MD visits
for today; seen by Dr. Espinal at present. Will ambulate in hallway later today, presently OOB in chair, just finished breakfast.
--- NOTE | 2024-04-26 09:18 | W.PN.HOSP.TC ---
Today's Communication/Plan
-
Signing AMA
Assessment / Plan
Assessment / Plan
Physical Exam
General: No acute distress. Acutely ill overall
HEENT: Moist mucous membranes, PERRLA, no JVD
Respiratory: Scattered coarse crackles b/l
Cardiac: S1/S2 and Regular Rhythm; No Murmur
GI: Soft, Non Tender, Non Distended and Normal Bowel Sounds
Musculoskeletal: 2+ pitting edema lower ext's
Neuro: AO x 3, no neuro-deficits appreciated
Psych: Calm
A/P: Patient is a 69y M with PMH significant for hypertension and DM-II who presents to ED complaining of SOB that has been progressive over the past 2 weeks.
Hypertensive Emergency
Acute on Chronic HFpEF
- ICU admit downgraded to Tele
- Patient presents with markedly elevated BP and evidence of end-organ impairment in the form of CHF and LIA.
- IV nicardipine weaned off
- Bumex and Diuril as per Nephro
- ECHO appreciated preserved EF 50-55%
- Inventory Controller, Cardiology, and Nephrology consults appreciated
- Troponin trended to peak 0.087, chest pain free, likely non-ischemic WI
- cont home coreg and hydralazine dose increased as below
LIA on CKD IV
-Creatinine 4.9 today, trending up from 3.8 yesterday
Prior to today:
- Cr peaked 4.1, trending down
- Followed by Nephrology as an outpatient.
-Hydralazine increased to 100 mg TID and Procardia 30 mg BID as per Nephro
- Hold losartan acutely.
- IV diuresis as noted above.
Hx DM-II (patient no longer diabetic)
- Stable. Patient states that he started Mounjaro at the beginning of 2023.
- Significant weight loss initially and he was taken off of his insulin therapy.
- updated A1C 5.2 non-diabetic
- Consistently Euglycemic with minimal need for insulin correction, ok to discontinue sliding scale and routine fingersticks
Obesity due to excess calories
- Weight loss over the past year on Mounjaro.
- Hold during inpatient stay but resume at discharge.
Paroxysmal Atrial Fibrillation
-noted on telemetry as per cardio, started on hep gtt, cont
-eventual transition to doac as per cardio
Poor Sleep
-bedtime Melatonin 3mg
DVT Prophylaxis: hep gtt
Code Status: Full
I spent a total of 55 minutes with the patient or on the floor. More than 50% of this time involved counseling and coordination of care.
After seeing the patient in the morning RN called me in the afternoon after he was transferred to the floor with telemetry but he wanted to sign AGAINST MEDICAL ADVICE today. I discussed with him the fact that we are still monitoring some of his
blood work and he still on heparin drip and IV Bumex; some of the labs are abnormal and actually worse today; I am not able to gauge what medications he should be on at the moment; also explained risks and benefits including but not limited to
worsening heart failure, cardiogenic shock, worsening renal failure requiring hemodialysis, rehospitalization, and . He is alert oriented and understand consequences of his decisions and he seems competent to make decisions and his firm on his
decision that he wants to leave today. He signed the form.
Anticipated Discharge: Today
Subjective/Interval History
-
Date of Service: April 26, 2024
Patient seen in ICU initially although waiting for telemetry. Denies worsening shortness of breath although still edematous. No chest pain. He told me 'if not discharged by tomorrow he will sign AGAINST MEDICAL ADVICE'.
Objective Data
-
Labs:
Laboratory Results
04/26/24
04:19
WBC 7.5
Hgb 9.3 L
Hct 28.6 L
Plt Count 192
APTT 84.3 H
Sodium 139
Potassium 3.7
Chloride 109 H
Carbon Dioxide 23
BUN 50 H
Creatinine 4.9 H*
Glucose 129 H
Calcium 8.5
Vital Signs:
Vital Signs
Temp Pulse Resp BP Pulse Ox
98.1 F 78 20 135/67 97
04/26/24 07:32 04/26/24 08:17 04/25/24 18:59 04/26/24 08:17 04/26/24 08:00
I&O
04/25/24 04/26/24 04/27/24
06:59 06:59 06:59
Intake Total 620.0 / 635.0 840 / 855 270 / 270
Output Total 1650 / 1650 300 / 300
Balance -1030.0 / -1015.0 540 / 555 270 / 270
--- NOTE | 2024-04-26 13:00 | W.PN.CARDCBS ---
Today's Communication / Plan
-
Diuresis and volume removal per nephrology
Continue ongoing discussions with the patient regarding severity of illness
Continue IV heparin eventual oral anticoagulation and will defer to nephrology if NOAC appropriate given significant decline in creatinine clearance versus warfarin which will be more difficult to manage in this patient.
Impression / Plan
-
Primary Returned Case Inspector: none prior to admission, scheduled to see Dr. Maldonado ( follows with Dr Maldonado)
Assessment:
Presentation with anasarca, scrotal edema, orthopnea
Acute on chronic LE edema, improving
Hypertensive emergency, improving
Acute HFpEF, improving
LIA on CKD 4
Elevated troponin, suspected nonischemic myocardial injury
Paroxysmal atrial fibrillation
Anemia of chronic disease
Hypoalbuminemia
Multidrug resistant hypertension
DM2
CKD4
Diabetic nephropathy
Proteinuria
HLD
Obesity on mounjaro
ECHO 04/23/24: EF 50 to 55%, mild concentric LVH, aortic sclerosis, mild TR, PAP 51 mmHg, small pericardial effusion without evidence of hemodynamic compromise, pleural effusion present
Plan:
-Patient with known multidrug-resistant hypertension, type 2 diabetes with diabetic nephropathy, CKD stage IV and proteinuria who presented for evaluation of anasarca, scrotal edema and orthopnea.
Anasarca/acute heart failure with preserved ejection fraction:
-Significant body volume overload in the setting of CKD 4 being closely followed by nephrology. His weight is down 11 pounds altogether but still significant volume overload. Defer volume status and volume removal to nephrology.
-Consideration for hemodialysis for volume removal. Unfortunately patient is stating that he needs to leave the hospital for a family event soon.
Acute heart failure with preserved ejection fraction and increased PA pressures:
-proBNP greater than 27,000 and chest x-ray with pulmonary edema and small bilateral pleural effusions.
-Continue volume removal per primary service and nephrology. Echo noted.
Hypertensive emergency on arrival.
-Blood pressure stable. Continue current treatment.
New paroxysmal atrial fibrillation with RVR, currently in SR.
-Discussed with patient
-[id number] score of 4 for age, DM, CHF, HTN. Continue IV heparin for now. Eventual transition to oral anticoagulant. NOAC versus warfarin, await nephrology opinion given creatinine clearance.
-Continue heart rate control
Nonischemic troponin elevation
-trops 0.087, peak. With no chest pain. EKG abnormal but stable. Likely nonischemic troponin elevation. Risk factor modification.
-Consider eventual outpatient ischemic assessment.
-LDL 48. on lipitor 20mg QPM as OP. Continue.
Unfortunately the patient continues to discuss leaving the hospital for family event in [place]. It appears that he has a little understanding of his degree of illness and consequence of leaving prior to diuresis. Continue to reinforce importance
of medical care.
Progress Note - Returned Case Inspector
Subjective
Date of Service: April 26, 2024
He denies chest pain and palpitations. He is grossly volume overloaded.
Objective
Labs:
04/26/24 04:19
04/26/24 04:19
Labs
Hgb 9.3 g/dL (13.0-18.0) L 04/26/24 04:19
Hct 28.6 % (39.0-52.0) L 04/26/24 04:19
Plt Count 192 10^3/uL (130-400) 04/26/24 04:19
PT 13.6 Sec (11.4-14.6) 04/22/24 21:35
INR 0.99 04/22/24 21:35
APTT 84.3 Sec (23.4-35.0) H 04/26/24 04:19
Sodium 139 mmol/L (135-145) 04/26/24 04:19
Potassium 3.7 mmol/L (3.5-5.1) 04/26/24 04:19
BUN 50 mg/dl (9-20) H 04/26/24 04:19
Creatinine 4.9 mg/dL (0.7-1.3) H* 04/26/24 04:19
Glucose 129 mg/dl (70-99) H 04/26/24 04:19
Troponins
04/23/24
15:41
Troponin I 0.076 H*
Vital Signs and I&O:
Vital Signs
Temp Pulse Resp BP Pulse Ox
98 F 73 20 122/62 97
04/26/24 11:20 04/26/24 11:00 04/25/24 18:59 04/26/24 10:18 04/26/24 08:00
Vital Signs
Temp Pulse Resp BP Pulse Ox
98 F 73 20 122/62 97
04/26/24 11:20 04/26/24 11:00 04/25/24 18:59 04/26/24 10:18 04/26/24 08:00
Intake & Output
04/24/24 04/25/24 04/26/24 04/27/24
06:59 06:59 06:59 06:59
Intake Total 1273.5 / 1300.0 620.0 / 635.0 840 / 855 450 / 450
Output Total 1575 / 1575 1650 / 1650 300 / 300
Balance -301.5 / -275.0 -1030.0 / -1015.0 540 / 555 450 / 450
Physical Exam
Physical Exam
General: Chronically ill man
Heart: Distant heart sounds no murmurs, No S3, S4, no rubs.
Lungs: Coarse breath sounds decreased at the bases
Abdomen: distended.
Extremities: Anasarca.
--- NOTE | 2024-04-26 13:53 | PTCARENOTE ---
ambulated hallway earlier, offered CHG and clean gown, deferred at this time. tele bed assigned [phone], report to next RN. transported via and all belongings. rest of assessment as documented.
--- NOTE | 2024-04-26 13:57 | CM ---
CM following re: discharge planning.
Reviewed pt's chart, met with pt.
Per nephrology, there is no acute need for dialysis. Pt is aware he will be transferred to a different unit. IMM reviewed, placed on chart, pt has a copy.
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
D/C plan: home with anticipated no needs. Family to transport at discharge.
CM will follow with discharge plan updates as hospitalization progresses.
--- NOTE | 2024-04-26 18:06 | W.DCSUMMARY ---
Discharge Summary
Discharge Data
Date of Admission: 04/22/24
Date of Discharge: 04/26/24
-
Pending Results: No
Hospital Course
Patient is 69 years old male with history of hypertension, diabetes mellitus, obesity, difficult to control hypertension, on pharmacological therapy for weight loss, chronic lower extremity edema, came into the hospital with worsening shortness of
breath. Patient was found to be in heart failure, LIA, and hypertensive emergency. He was treated with IV diuretics, IV Cardene drip, and multiple other medications. Transthoracic echocardiogram revealed a EF of 50 to 55%, mild concentric left
ventricular hypertrophy, normal right ventricular systolic function, aortic sclerosis without stenosis, mild tricuspid regurgitation, estimated pulmonary pressure 51 mmHg, small pericardial effusion with no evidence of hemodynamic compromise, and
pleural effusion present. Cardiology, nephrology, and drier operator were consulted. He was also noticed to be on paroxysmal atrial fibrillation with RVR and he was initiated on IV heparin drip. He also had elevated troponin and cardiology was
planning eventual ischemic evaluation but management conservatively given LIA. He was able to come off Cardene drip and after several adjustments of medications. Nephrology noticed that he had probably longstanding CKD and likely due to diabetic
nephropathy and hypertensive nephrosclerosis with nephrotic range proteinuria.
Unfortunately, while patient on IV heparin drip and aggressive IV diuresis and worsening renal function and despite being severely ill and in the midst of treatment patient wanted to sign AGAINST MEDICAL ADVICE. It is not safe to even dose any
medications since he has some much fluctuation of his renal function just over the last 24 hours therefore it was discussed with patient that he will need to stay longer in the hospital and we could come up with better plan of care. We can not
prescribe medications that he would need with his creatine clearance until some degree of stabilization such as DOAC, diuretics, antihypertensives, and others until he is safely monitored. He is also at risk of worsening renal failure requiring
dialysis, worsening heart failure leading into cardiogenic shock, increased risk of rehospitalization, increased risk of cardiac arrhythmias due to metabolic derangements, risk of cardiac-respiratory arrest, and basically risk of . He is alert
oriented and competent enough to make decisions and he acknowledges that he understands risks of leaving. He still wants to sign AGAINST MEDICAL ADVICE and he says that he will follow-up with his physicians as outpatient.
Discharge duration: 42 minutes
Discharge Plan
-
Patient Disposition: Against Medical Advice
Instructions: *PCP/Other [facility] Heart Failure Instructions
Referrals:
Krish Espinal DO [Non-Admitting Privileges] - in less than 1 week
Wm Pitt MD [Active] - ([facility] evaluation, may see ANALYSIS ANALYST)
Cortney Clark MD [Active] - in less than 1 week
Misbah Barton DO [Family Provider] - in less than 1 week
Prescriptions:
New
nifedipine 30 mg Tablet Extended Release
30 mg PO BID Qty: 60 0RF
Continued
carvedilol 25 mg Tablet
25 mg PO BID
atorvastatin 20 mg Tablet
20 mg PO HS
hydralazine 25 mg Tablet
25 mg PO BID
aspirin 81 mg Tablet,Chewable
81 mg PO DAILY
bumetanide 1 mg Tablet
1.5 mg PO BID
Mounjaro 5 mg/0.5 mL Pen Injector
5 mg SC Q2W
Discontinued
hydrocodone-acetaminophen 7.5-325 mg Tablet
1 tab PO TIDPRN PRN (Reason: arthritis pain)
losartan 100 mg Tablet
100 mg PO DAILY
Discharge Date and Time
Discharge Date/Time: 04/26/24 18:58
Print Language: FRISIAN
--- NOTE | 2024-04-26 18:23 | PTCARENOTE ---
Pt came to the floor in a pleasant mood, in no distress or pain. He was made comfortable, He ate, used the bathroom. Tech came to me saying he wanted to leave AMA because he can get the same medication at home. Per patients words, He did not want to
stay here overnight just to leave tomorrow. I advised Dr Kang who came to the floor and advised pt of risks in leaving AMA and pt still wants to leave. IV is out and Tele monitor removed. AMA form signed by pt and MD.
== END 2024-04-26 18:58 | disposition left against medical advice (07) | DRG 304 ==
LOC: 4 EAST ACU 20:51
PROVIDERS: Internal Medicine; Physician Assistant; ADMITTING PHYSICIAN Hospitalist; ATTENDING PHYSICIAN Hospitalist; EMERGENCY PHYSICIAN Emergency Medicine; FAMILY PHYSICIAN Family Medicine; OTHER PHYSICIAN Internal Medicine Cardiovascular Disease; OTHER PHYSICIAN Internal Medicine Critical Care Medicine; OTHER PHYSICIAN Specialist
DX: I16.1 Hypertensive emergency (principal); I50.31 Acute diastolic (congestive) heart failure; N18.4 Chronic kidney disease, stage 4 (severe); N17.9 Acute kidney failure, unspecified; I31.39 Other pericardial effusion (noninflammatory); I13.0 Hypertensive heart and chronic kidney disease with heart failure and stage 1 through stage 4 chronic kidney disease, or unspecified chronic kidney disease; E11.22 Type 2 diabetes mellitus with diabetic chronic kidney disease; I1A.0 Resistant hypertension; I48.0 Paroxysmal atrial fibrillation; D63.1 Anemia in chronic kidney disease; E88.09 Other disorders of plasma-protein metabolism, not elsewhere classified; E78.00 Pure hypercholesterolemia, unspecified; E66.09 Other obesity due to excess calories; Z68.34 Body mass index [BMI] 34.0-34.9, adult; Z79.85 Long-term (current) use of injectable non-insulin antidiabetic drugs; I70.0 Atherosclerosis of aorta; N50.89 Other specified disorders of the male genital organs; Z87.891 Personal history of nicotine dependence; Z79.82 Long term (current) use of aspirin; Z79.899 Other long term (current) drug therapy; M19.90 Unspecified osteoarthritis, unspecified site; R09.02 Hypoxemia; I27.20 Pulmonary hypertension, unspecified; Z53.29 Procedure and treatment not carried out because of patient's decision for other reasons
CPT/HCPCS: 51798; 71045; 80048; 80053; 80061; 81003; 81015; 82570; 82962; 83036; 83690; 83735; 83880; 84100; 84156; 84443; 84484; 85025; 85027; 85610; 85730; 86803; 93005; 93306; 96374; 96375; 99291; J1205

== ENCOUNTER 2024-05-17 13:27 | Inpatient (IN) | payer MEDICARE, OTHER, SELFPAY ==
[2024-05-17] VITALS (44 sets, daily range): BP systolic 117–216; BP diastolic 52–132; PULSE 2–91; BMI 35.7
[2024-05-17] MEDS: LASIX 80 MG IV ×2 (10:37→17:50)
[2024-05-17 10:41] LABS: % Basophils 0.7 % (0-2); % Eosinophils 3.9 % (0-6); % Immature Granulocytes 0.3 % (0-0.5); % Lymphocytes 19.7 % (20.5-51.1); % Monocytes 5.2 % (1.7-9.3); % Neutrophils 70.2 % (42.2-75.2); Absolute Basophils 0.1 10^3/uL (0-0.2); Absolute Eosinophils 0.6 10^3/uL (0-0.7); Absolute Immature Granulocytes 0.1 10^3/uL (0-0.05); Absolute Lymphocytes 2.9 10^3/uL (1.2-3.4); Absolute Monocytes 0.8 10^3/uL (0.1-0.6); Absolute Neutrophils 10.2 10^3/uL (1.4-6.5); Hematocrit 29.3 % (39.0-52.0); Hemoglobin 9.6 g/dL (13.0-18.0); Mean Corp Hgb Conc. 32.8 g/dL (33.0-37.0); Mean Corpuscular Hgb 31.7 pg (27.0-31.0); Mean Corpuscular Volume 96.7 fL (80.0-94.0); Mean Platelet Volume 10.8 fL (7.4-10.4); Nucleated Red Blood Cells % 0 % (-); Platelet Count 224 10^3/uL (130-400); Red Blood Cell Count 3.03 10^6/uL (4.70-6.10); Red Cell Dist. Width 14.4 % (11.5-14.5); White Blood Cell Count 14.6 10^3/uL (4.8-10.8)
[2024-05-17] MEDS: NITROGLYCERIN PREMIX 250 IV ×2 (10:41→11:37)
--- NOTE | 2024-05-17 10:43 | EDRN ---
Pt arrived at 1035 in acute respiratory distress. Pt moved to [facility], BiPap placed. PIV blood access, orders placed. Dr. Tello IV pushed 400 mcg of Nitro at bedside. Pt tolerated medication.
--- NOTE | 2024-05-17 10:46 | ED.GENMED ---
History of Present Illness
General
Chief Complaint: Breathing Problem
Source: patient
Exam Limitations: none
Time Seen by Provider: 05/17/24 10:34
Nursing documentation reviewed up to this point in time: agreed with
History of Present Illness
History of Present Illness:
Patient recently admitted and treated for congestive heart failure with paroxysmal atrial fibrillation, left AGAINST MEDICAL ADVICE, returns to ED with sudden onset of shortness of breath while he was at work this morning. Denies chest pain.
Denies chest palpitations. Denies dizziness. Denies nausea or vomiting. Patient takes Bumex as an outpatient. Patient states that he was at his baseline health when he left his house to go to work this morning. Patient is currently not on any
blood thinning medications. Denies recent weight changes. Denies fever or chills. Denies coughing. Per paramedics, patient was found to be in severe respiratory distress and hypertensive. Patient was placed on CPAP and given sublingual
nitroglycerin x 8, in route to the hospital, with mild improvement in symptoms.
Past History
Past History
ED Past Medical History: HTN, Hypercholesterolemia and NIDDM; Negative CHF, IA or Valvular disease
Social History
Tobacco: Former smoker
Alcohol: None
Drug: None
Personal:
Living: with family
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
Review of Systems
Review of Systems
Allergies reviewed?: Yes
All Other Systems: ROS reviewed and negative except as documented in HPI and ROS
Constitutional: Reports no symptoms
EENT: Reports no symptoms
Respiratory: Reports trouble breathing
Cardiac: Reports no symptoms; Denies chest pain, palpitations or syncope
ABD/GI: Reports no symptoms; Denies nausea, vomiting or diarrhea
Musculoskeletal: Reports edema
Skin: Reports no symptoms
Neurological: Reports no symptoms
Phy Exam
Physical Exam
Physical Exam:
Physical Exam
General: modeate respiratory distress, not acutely ill. afebrile
Head: nc/at. eomi
Neck: supple. no meningeal signs.
Heart: s1/s2 regular rate and rhythm, no murmur. equal radial pulses.
Lungs: moderate respiratory distress. crackles bilaterally
Abdomen: normal bowel sounds. not tender
Neuro: alert and oriented x 3. no focal neurological deficits
Skin: no rash
Psychiatric: well kept. interactive and cooperative
Extremities: no edema. no calf tenderness.
Scores
Heart Failure Risk
Heart Failure Risk Score: Yes
History of Stroke or TIA: No
History of intubation for respiratory distress: No
Heart rate on ED arrival >/= 110: Yes
SaO2 <90% on arrival on room air: Yes
HR >/=110 during 3min walk test (or too ill to perform test): Yes
ECG has acute ischemic changes: No
Urea >/=12mmol/L (BUN 33.6mg/dL): Yes
Serum CO2>/=35mmol/L: No
Troponin I or T elevated to IA Level (0.4mg/dL): No
NT-proBNP >/=5,000ng/L (5,000pg/ml): Yes
HF Risk Score: 5
Admission Status: VERY HIGH RISK 39.8% Consider admission to hospital
Course
Orders/Labs/Results
Orders:
Orders
05/17/24 Breakfast
2200 calorie (18 carb) Diabetic
At Your Request: Full Participation
Fluid Restriction: 1200 mL/day (40 oz)
Diabetic Diet: Cholesterol Lowering
05/17/24 10:29
Electrocardiogram (*1) Urgent
Reason for Study: Shortness of Breath
EKG- Treatment ONCE
Chest X-ray Portable [CR Chest Portable - 1 View] Urgent
Comment:
Reason For Exam: sob
Reason Study Needs to be Portable: Patient Unstable
05/17/24 10:34
Add On- LAB Urgent
Tests Added?: magnesium
Complete Blood Count/With Diff Urgent
05/17/24 10:37
Furosemide [Lasix] 80 mg IV NOW STA
05/17/24 10:40
Nitroglycerin 100 mg/250 ml [Nitroglycerin Premix] 100 mg in 250 ml IV NOW
Initial dose in mcg/min, then titrate:: 200
Titrate to keep:: MAP 70-100 mmHg
Titrate by mcg/min:: 5 mcg/min, may increase by 10 mcg/min if dose > 20 mcg/min
Frequency of titrations (minutes):: every 3-5 minutes
Maximum dose in mcg/min:: 200
Begin to taper infusion when:: Remained at goal for 2hrs
Taper by mcg/min:: 5 mcg/min
Frequency of taper (minutes) if patient maintains goal:: 30
Taper to off?: Yes
If infusion off & no longer maintaining goal:: Contact Provider
05/17/24 10:45
Add On- LAB Urgent
Tests Added?: magnesium
05/17/24 10:46
Bipap [RESP] Urgent
Patient to use own unit?: No
Inspiratory Pressure (cm H2O): 12
Expiratory Pressure (cm H2O): 6
05/17/24 11:03
Comprehensive Metabolic Panel Urgent
Ferritin Urgent
Comment: ADD ON
Folate Urgent
Comment: ADD ON
Iron Urgent
Comment: ADD ON
NT-proBNP Urgent
Total Iron Binding Urgent
Comment: ADD ON
Troponin I Urgent
Vitamin B12 Urgent
Comment: ADD ON
05/17/24 11:10
Electrocardiogram (*1) Urgent
Reason for Study: Tachycardia
EKG- Treatment ONCE
05/17/24 12:24
Add On- LAB Stat
Tests Added?: iron, ferritin, b12, folate, TIBC
05/17/24 12:27
Admit/Transfer Patient As Directed
Co-Sign Provider:
Level of Care: Inpatient admission
Assign to:: Telemetry
Physician / Group: lyubov reza
Diagnosis: pulmonary Edema
Reason for Telemetry: Acute Heart Failure
Date to Stop Telemetry: 05/20/24
Time to Stop Telemetry: 11:00
Reason for Hospitalization: Pulmonary Edema
Expected length of stay greater than two midnights?: Yes
ELOS- Estimated Length of Stay in days: 3
I certify the patient meets the requirements for IP care: Yes
05/17/24 12:28
PRN Pain Medication Management As Directed
May give lesser potent ordered pain med per pt: Yes
preference::
Protocol:: Medication orders for pain may be administered in a
manner that supports deferring to patient preference
when the pt is:
- Requesting an ordered lesser potent pain medication.
Least to most potent pain medications are defined
as: acetaminophen < NSAID < tramadol < opioids
(morphine, oxycodone, hydromorphone).
- Requesting a lesser dose of the same medication IF
ORDERED.
- Requesting a less intrusive route of administration
if both routes are prescribed by the provider (PO <
IV).
05/17/24 12:29
Code Status As Directed
Resuscitation Status: Full Code
05/17/24 12:35
Gomez [Gomez Placement- Treatment] ONCE
Reason for insertion: I&O's Critical Care
05/17/24 13:31
Sleep Apnea Assessment by RN As Directed
Comment:
Physician Instructions:
05/17/24 15:50
Dextrose 50%-Water [Dextrose 50% Syringe] 12.5 grams IV [id number] PRN
Glucagon [GlucaGen] 1 mg IM PRN PRN
Hydrocodone 7.5/APAP 325 [Rio 7.5/325] 1 tablet PO TIDPRN PRN
Nitroglycerin 100 mg/250 ml [Nitroglycerin Premix] 100 mg in 250 ml IV PER PROTOCOL
Currently infusing. Continue current dose and titrate:: Yes
Titrate to keep:: SBP < 160 mmHg
Titrate by mcg/min:: 5 mcg/min, may increase by 10 mcg/min if dose > 20 mcg/min
Frequency of titrations (minutes):: every 3-5 minutes
Maximum dose in mcg/min:: 200
Begin to taper infusion when:: Remained at goal for 2hrs
Taper by mcg/min:: 5 mcg/min
Frequency of taper (minutes) if patient maintains goal:: 30
Taper to off?: Yes
If infusion off & no longer maintaining goal:: Contact Provider
05/17/24 15:50
CARDIOLOGY CONSULT Routine
Consulting Provider: Marcelo Luz
Was physician already notified: Yes
HF DIETARY CONSULT Routine
HF EDUCATOR CONSULT Routine
Comment:
NEPHROLOGY CONSULT Routine
Consulting Provider: Monster Farrell V.
Was physician already notified: Yes
Activity As Directed
Activity Level: As Tolerated
Bedside Glucose Monitoring As Directed
Frequency: AC&HS
Additional Instructions:: Change to q6h if pt on TPN, tube feeding or not eating
Intake/ Output As Directed
Frequency: Per unit guidelines
Patient Education As Directed
Type: CHF folder
Comment: give on admission. Document in Interdisciplinary Education record
Vital Signs As Directed
Frequency: Other
Additional Instructions:: Q12 or per unit guidelines if more frequent.
Weight As Directed
Frequency: Daily
Type of Scale: Standing Scale
Comment: Daily morning weight. If unable to stand, use balanced bed scale.
Weight As Directed
Frequency: Once
Type of Scale: Standing Scale
Comment: Upon Admission. If unable to stand, use balanced bed scale.
Bipap [RESP] Routine
Patient to use own unit?: No
Inspiratory Pressure (cm H2O): 5
Expiratory Pressure (cm H2O): 5
Pulse Ox/cont/shift [RESP] Routine
Quantity: 1
Special Instructions: Daily pulse oximetry at rest. If greater than 92% at rest also obtain pulse oximetry
while ambulating as tolerated.
DX Deep Vein Thrombosis Video Routine
05/17/24 16:00
Furosemide [Lasix] 80 mg IV BID AT 0800,1600
05/17/24 16:30
Insulin Aspart Corrective Low [Novolog Flexpen-Low Resistance] See Protocol SC AC
05/17/24 17:49
Troponin I Q6H
Comment: at admission & every 6 hours x 2 (3 total), ECG to be done with each level
05/17/24 20:00
Carvedilol [Coreg] 25 mg PO BID
Heparin 5,000 units SC Q12
HydrALAZINE [Apresoline] 25 mg PO BID
05/17/24 22:00
Atorvastatin [Lipitor] 20 mg PO HS
05/17/24 23:14
Troponin I Q6H
Comment: at admission & every 6 hours x 2 (3 total), ECG to be done with each level
05/18/24 04:08
Cardiovascular Evaluation IN AM
Complete Blood Count/No Diff IN AM
Magnesium IN AM
TSH Reflex To Free T4 IN AM
05/18/24 08:00
Aspirin Chewable [Low Strength Aspirin] 81 mg PO DAILY
05/19/24 06:00
Basic Metabolic Panel IN AM
Complete Blood Count/No Diff IN AM
05/20/24 06:00
Basic Metabolic Panel IN AM
Complete Blood Count/No Diff IN AM
05/21/24 06:00
Complete Blood Count/No Diff IN AM
Abnormal Lab Results
05/17/24 05/17/24
10:34 11:03
WBC 14.6 H 10^3/uL
(4.8-10.8)
RBC 3.03 L 10^6/uL
(4.70-6.10)
Hgb 9.6 L g/dL
(13.0-18.0)
Hct 29.3 L %
(39.0-52.0)
MCV 96.7 H fL
(80.0-94.0)
MCH 31.7 H pg
(27.0-31.0)
MCHC 32.8 L g/dL
(33.0-37.0)
MPV 10.8 H fL
(7.4-10.4)
Abs Immat Gran (auto) 0.1 H 10^3/uL
(0-0.05)
Absolute Neuts (auto) 10.2 H 10^3/uL
(1.4-6.5)
Absolute Monos (auto) 0.8 H 10^3/uL
(0.1-0.6)
Lymphocytes % 19.7 L %
(20.5-51.1)
Chloride 111 H mmol/L
(98-107)
Carbon Dioxide 20 L mmol/L
(22-30)
BUN 54 H mg/dl
(9-20)
Creatinine 4.4 H* mg/dL
(0.7-1.3)
Glucose 240 H mg/dl
(70-99)
Calcium 7.7 L mg/dl
(8.4-10.2)
TIBC 193 L ug/dl
(261-462)
Troponin I 0.083 H* ng/ml
Total Protein 5.1 L g/dl
(6.3-8.2)
Albumin 2.8 L g/dl
(3.5-5.0)
05/17/24 10:34
05/17/24 11:03
Vital Signs
Initial and Last Documented VS:
Initial Vital Signs
Pulse Resp Pulse Ox
116 31 98
05/17/24 10:32 05/17/24 10:32 05/17/24 10:32
Last Documented Vital Signs
Temp Pulse Resp BP Pulse Ox
98.4 F 82 26 157/76 97
05/18/24 07:28 05/18/24 08:01 05/18/24 08:01 05/18/24 08:01 05/18/24 08:01
MDM/Problems Addressed
MDM/Problems Addressed:
Patient evaluated immediately upon arrival secondary to significant respiratory distress. Patient found to be hypotensive, tachycardic, and tachypneic, but able to speak in full sentences. Patient placed on BiPAP immediately, and given Lasix along
with nitroglycerin infusion, assisted by multiple nitroglycerin IV boluses at bedside by myself, as well as placement of Gomez catheter, with improving symptoms. Patient unfortunately is high risk for clinical deterioration. As such, patient will
be evaluated for potential ICU evaluation and treatment today.
Critical care statement: A total of 40 minutes of critical care time was provided for this patient. This includes management of unstable vital signs, evaluation of the patient at bedside, reviewing the patient's pertinent medical records, review of
old EKGs and review of pertinent medical records. This time with separate from time utilized to perform the aforementioned documented procedures
*Critical Care Note
Total Time (30-74mins, 75-104mins- exclusive of procedures): 40 min
ED Attending Note
-
Portions of this chart may have been created with voice recognition software.� Occasional wrong word or��sound alike� substitutions may have occurred due to the inherent limitations of voice recognition software.
Discharge Plan
Departure
Patient Disposition: Admit
Date of Disposition: 05/17/24
Time of Disposition: 11:39
Admit to: IMU
Presentation/result/management discussed w/ accepting MD/DO: Hospitalist
Discharge Problem:
Hypertensive emergency, Flash pulmonary edema
Interventions
Interventions:
*Risk Screen - Suicide Last Done: 05/17/24 16:03
*General Assessment Last Done: 05/17/24 10:50
*Neglect/Abuse Screening Last Done: 05/17/24 10:50
*ED COVID-19 Vaccine History Last Done: 05/17/24 10:50
*Nursing Disposition Last Done: 05/17/24 15:46
ED- Cardiac Assessment Last Done: 05/17/24 10:50
ED- Pulmonary Assessment Last Done: 05/17/24 12:29
Discharge Date and Time
Discharge Date/Time: 05/17/24 15:47
--- NOTE | 2024-05-17 11:18 | PHANOTE ---
Home Meds
Patient meds brought in by EMS, documented and stored as Medications Brought in by Patient in pharmacy
[2024-05-17 11:36] LABS: ALT (SGPT) 25 U/L (0-50); AST (SGOT) 22 U/L (17-59); Albumin 2.8 g/dl (3.5-5.0); Alkaline Phosphatase 103 U/L (38-126); Blood Urea Nitrogen 54 mg/dl (9-20); Calcium 7.7 mg/dl (8.4-10.2); Carbon Dioxide 20 mmol/L (22-30); Chloride 111 mmol/L (98-107); Estimated Creatinine Clearance 22 ml/min; Glucose 240 mg/dl (70-99); Potassium 4.4 mmol/L (3.5-5.1); Sodium 140 mmol/L (135-145); Total Bilirubin 0.4 mg/dl (0.2-1.3); Total Protein 5.1 g/dl (6.3-8.2); eGFR 13.94
[2024-05-17 11:50] LABS: NT-proBNP 24200 pg/ml; Troponin I 0.083 ng/ml
--- NOTE | 2024-05-17 12:05 | HPS.HSE ---
Family Physician
-
Family Physician: Misbah Barton
Chief Complaint
-
Short of breath
History of Present Illness
69 year old with PMH for CHF, atrial fib, CHf presented to us with sudden onset of shortness of breath while he was at work this morning. Denies chest pain. Denies chest palpitations. Denies dizziness. Denies nausea or vomiting. stated sob only
worse with exertion, relief with rest. He noticed B/l LE edema, scrotal edema for past few days. denied abdominal pain. denied dysuria or hematuria. Patient takes Bumex as an outpatient.
patient was noted hypertensive. Lasix given and placed on nitro. admitting for further management.
Medical History
Past Medical History
Past Medical History: Reports Other
Additional Past Medical History:
Chronic kidney disease
Hypertension
Type 2 diabetes
CHF
A-fib
Past Surgical History: Reports None and Other
Social History
Tobacco: Non-smoker
Alcohol: None
Drug: None
Personal:
Living: With Family
Family History
Family History: Not pertinent
Allergies / Home Medications
Allergies reflects when Allergies were last updated in [employer].
Home Medications with original date entered in [facility]
Allergy/Medication List:
Allergies
Allergy/AdvReac Type Severity Reaction Status Date / Time
No Known Allergies Allergy Verified 04/22/24 17:56
Home Medications
aspirin 81 mg chewable tablet 81 mg PO DAILY Blood Clot Prevention/Tx 04/22/24
atorvastatin 20 mg tablet 20 mg PO HS High Cholesterol 04/22/24
bumetanide 1 mg tablet 1.5 mg PO BID Fluid Retention/Swelling 04/22/24
carvedilol 25 mg tablet 25 mg PO BID Blood Pressure 04/22/24
hydralazine 25 mg tablet 25 mg PO BID Blood Pressure 04/22/24
hydrocodone 7.5 mg-acetaminophen 325 mg tablet 1 tab PO TIDPRN PRN arthritis pain 04/22/24
losartan 100 mg tablet 100 mg PO DAILY Blood Pressure 04/22/24
Review of Systems
-
Constitutional: Reports No Symptoms
EENT: Reports No Symptoms
Respiratory: Reports Trouble Breathing
Cardiac: Reports No Symptoms
Abdomen/GI: Reports No Symptoms
: Reports No Symptoms
Musculoskeletal: Reports Edema (b/l LE edema, scroal edema)
Skin: Reports No Symptoms
Neurological: Reports No Symptoms
Endocrine: Reports No Symptoms
Hematologic/Lymphatic: Reports No Symptoms
Psych: Reports No Symptoms
Physical Exam
Vital Signs
Vital Signs
Pulse Resp BP Pulse Ox
74 18 144/77 100
05/17/24 11:50 05/17/24 11:50 05/17/24 11:50 05/17/24 11:50
Physical Exam
General: Well Developed, Well Nourished and No Apparent Distress
HEENT: NormoCephalic, Moist mucous membranes and Atraumatic
Respiratory: Crackles
Cardiac: S1/S2 and Regular Rhythm; No Murmur or Rub
GI: Soft, Non Tender, Non Distended and Normal Bowel Sounds; No Organomegaly
Rectal: Deferred by Provider
Musculoskeletal: No Clubbing, No Cyanosis and Other (b/l LE edema, scrotal edema)
Skin: No Rash
Neuro: AO x 3 and Nonfocal/grossly intact
Psych: Calm
Laboratory Results
-
05/17/24 10:34
05/17/24 11:03
Laboratory Results
Total Bilirubin 0.4 mg/dl (0.2-1.3) 05/17/24 11:03
AST 22 U/L (17-59) 05/17/24 11:03
ALT 25 U/L (0-50) 05/17/24 11:03
Alkaline Phosphatase 103 U/L (38-126) 05/17/24 11:03
Troponin I 0.083 ng/ml H* 05/17/24 11:03
Data Reviewed
-
Diagnostic Radiology: Report Reviewed by me
Lab Data: Labs Reviewed by me
Impression/Plan
-
# Flash pulmonary edema
-Strict I&O
-BNP 24 200
-Chest x-ray with impression of Prominent markings, most likely differential diagnostic possibility would be acute pulmonary edema.
-IV diuretics
-Fluid restriction
-Continue BiPAP
-ECHO 04/23/24: EF 50 to 55%, mild concentric LVH, aortic sclerosis, mild TR, PAP 51 mmHg, small pericardial effusion without evidence of hemodynamic compromise, pleural effusion present
-Cardiology consult
# Hypertension emergency
-Nitroglycerin drip
-hydralazine continued
-hold losartan
# Paroxysmal A-fib
-HR controlled
-Coreg continued
# Leukocytosis likely stress reaction
-WBC 14.6
-patient is afebrile
-ctm
# Microcytic anemia
-Hemoglobin 9.6
-Patient denied active bleeding
-obtain iron panel
# Type 2 diabetes
-non on meds
-sliding scale
-CHO diet
# CKD stage Wilma
-Creatinine 4.4
-Nephrology consulted
# Elevated troponin likely non ischemic AK
-Continue to trend Trope
-EKG with impression of accelerated junctional rhyth
-Repeat EKG with sinus rhythm with ST and T wave abnormality
#HLD
-statin
#DVT prophylaxis
-heparin sq
#CODE status
-full code
--- NOTE | 2024-05-17 12:29 | W.PN.UPDATE ---
Update Note
Progress Note Update
This note serves as an addendum to the H&P by chief airline radio operator ALIN Nishi JORDAN
HPI
69M with obesity HX HTN, chr HFpEF, Prx AF, CKD4, DMT2 , HX left AMA on last admission seen at ER:
- sudden onset of shortness of breath while he was at work this morning.
- Per paramedics, patient was found to be in severe respiratory distress and hypertensive.
- he takes Bumex as an outpatient reports complinace
- he was at his baseline health when he left his house to go to work this morning.
- currently not on any blood thinning medications.
At ER:
Patient was placed on CPAP and given sublingual nitroglycerin x 8, in route to the hospital, with mild improvement in symptoms.
ROS
- Denies recent weight changes.
- Denies chest pain. Denies chest palpitations.
- Denies fever or chills.
- Denies coughing.
- Denies dizziness.
- Denies nausea or vomiting.
Reviewed VS: 215/130s ---> 145/77 BiPAP POx 100%
Vital Signs
Pulse Resp BP Pulse Ox
75 19 153/96 100
05/17/24 12:15 05/17/24 12:15 05/17/24 12:15 05/17/24 12:15
PE
Gen: NAD. Weaned off to NC O2 , NAD
HEENT: anicteric
Neck:supple
Lungs: basilar rale at both ruiz. no wheze
Cor: RRR S1 S2
Abdomen: benign
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
Ext.; b/l 3 plus Holly edema til
Psych: calm
Laboratory Tests
04/26/24 05/17/24 05/17/24
04:19 10:34 11:03
WBC 14.6 H
Hgb 9.3 L 9.6 L
MCV 96.7 H
Potassium 4.4
Creatinine 4.9 H* 4.4 H*
eGFR 12.25 13.94
Glucose 240 H
Calcium 7.7 L
Troponin I 0.083 H*
Ihk-I-Zbpqunsynul Pept 16403
Albumin 2.8 L
05/17/23 CXR; Prominent markings, most likely differential diagnostic possibility would be acute pulmonary edema.
EKG
SINUS RHYTHM
SEPTAL INFARCT (CITED ON OR BEFORE 22-APR-2024)
ST and T WAVE ABNORMALITY, CONSIDER LATERAL ISCHEMIA
ABNORMAL ECG
WHEN COMPARED WITH ECG OF 17-MAY-2024 10:32,
CURRENT UNDETERMINED RHYTHM PRECLUDES RHYTHM COMPARISON, NEEDS REVIEW
NONSPECIFIC T WAVE ABNORMALITY, WORSE IN INFERIOR LEADS
T WAVE INVERSION LESS EVIDENT IN LATERAL LEADS
Confirmed by PEARL GLOVER, JAIME ([id number]) on 05/17/2024 11:42:55 AM
04/23/24 TTE
LVEF 50-55%
Normal right ventricular systolic function.
Mild tricuspid regurgitation. Estimated pulmonary artery pressure of 51 mmHg
assuming a right atrial pressure of 8 mmHg.
Small pericardial effusion without evidence of hemodynamic compromise.
Pleural effusion present.
ASSESSMENT & PLAN
Acute flash pulmonary edema in setting of HTN emergency
HX chr HFpEF; 04/23/24 TTE LVEF 50-55%
HTN emergency; improving
- sig elevated proBNP
- s/p IV lasix 80 x 1 at ER
- cont IV Lasix 80 daily
- BiPAP
- NTG gtt
- Trend BP
- F/U Wt, IOs daily
- daily BMP
- DA card consult
Elevated TPNI; likely NIMI
- Trend TPNI till peak
Stable CKD - baseline Cr mid 4s, baseline eGFR mid 10s
Azotemia
Chr macrocytic anemia - stable Hgb
Expanded volume
- Hold losartan and PO Bumex
- Trend Cr with Diuresis
- Trend Hgb
- Renal consult
Hyperglycemia
T2 DM
Patient states that he started Mounjaro at the beginning of 2023.
Significant weight loss initially and he was taken off of his insulin therapy.
- add ISS low
Obesity due to excess calories
- Weight loss over the past year on Mounjaro.
- Hold during inpatient stay but resume at discharge.
DVT Px: SQH
Full code
IMU
--- NOTE | 2024-05-17 13:39 | CON.CAR ---
Addendum entered and electronically signed by Marcelo Luz MD 05/17/24 16:07:
I saw and examined the patient.
The SUPERVISOR KENNEL or PA's note was reviewed and I agree with the note.
Comment: General: Well developed, well nourished in NAD.
Neck: Supple, no JVD, HJR, carotids +2 B/L, no bruits bilaterally.
Heart: Non displaced PMI, RRR, no murmurs, No S3, S4, no rubs.
Lungs: Scattered rhonchi
Abdomen: Normal bowel sounds, soft, non-tender, non-distended.
Extremities: Severe lower extremity edema bilaterally.
Neuro: Grossly nonfocal, awake, alert and oriented x3.
Raúl has a history of chronic diastolic CHF, CKD 4, multidrug-resistant hypertension, PAF diagnosed in April 2024 was not chronically anticoagulated due to inability to safely dose oral anticoagulation in the setting of renal sufficiency,
diabetes. He was admitted April 2024 but signed out AGAINST MEDICAL ADVICE to attend a family reunion. Nephrology suggested hemodialysis but he was anxious to be discharged. He did diurese 11 pounds another admission and felt better. He has
become more short of breath especially walking up a flight of steps. He now presents with acute diastolic CHF.
Discussed with patient and at bedside. Will attempt to diurese. He ultimately may need dialysis.
Original Note:
Consultation
Consultation Request
Date/Time Consultation Requested: 05/17/24
Date/Time Consultation Performed: 05/17/24
Requesting Provider: Dr. Francois
Performing Provider: Dr. Luz
Reason for Consultation: Acute HF
Medical History
-
History of Present Illness:
Patient came to [facility] today with flash pulmonary edema and HTN emergency, cardiology has been consulted. Patient was admitted to 04/22/24 until 04/26/24 with newly diagnosed acute HF and Afib along with LIA on CKD 4. Patient was followed by
cardiology, intensive medicine and nephrology that admission. Nephrology suggested HD, but patient was anxious for d/c due to a previously scheduled family reunion in [place] and ultimately left A. Patient had diuresed 11 lbs and possibly a bit
more that admission and says he actually felt much better when he left and that he did well at the family reunion, but patient's feels like she noticed patient more SOB and taking breaks after walking up a flight of stairs because he was SOB.
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
breather. Coworkers, who are also clean room assembler, noticed that patient appeared to be in distress and brought him to [facility] vis ambulance and gave him up to 8 doses of NTG SL in the ambulance along with BiPAP, but patient says none of that made him feel better
until he arrived in the ER and was started on Nitro gtt. Patient reports he feels symptomatically improved, but nowhere near baseline and says that he is willing to stay in the hospital to receive the care he needs.
PMH:
Chronic HFpEF
Chronic LE edema
CKD 4
Multidrug resistant hypertension
Paroxysmal atrial fibrillation
newly diagnosed 04/2024
Not chronically anticoagulated due to inability to safely dose OAC in the setting of LIA
Anemia of chronic disease
Hypoalbuminemia
DM2
Diabetic nephropathy
Proteinuria
HLD
Obesity, previously on Mounjaro
Past Medical History
Past Medical History: Other (in HPI)
Past Surgical History: Tonsilectomy
Social History
Tobacco: Former Smoker (remote)
Alcohol: None
Personal:
Living: With Family
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
Family History
Family History: Cancer
Allergies / Home Medications
Allergy/AdvReac Type Severity Reaction Status Date / Time
No Known Allergies Allergy Verified 04/22/24 17:56
�Medication �Instructions �Recorded �Confirmed �Type
aspirin 81 mg chewable tablet 81 mg PO DAILY Blood Clot 04/22/24 05/17/24 History
Prevention/Tx
atorvastatin 20 mg tablet 20 mg PO HS High Cholesterol 04/22/24 05/17/24 History
bumetanide 1 mg tablet 1.5 mg PO BID Fluid 04/22/24 05/17/24 History
Retention/Swelling
carvedilol 25 mg tablet 25 mg PO BID Blood Pressure 04/22/24 05/17/24 History
hydralazine 25 mg tablet 25 mg PO BID Blood Pressure 04/22/24 05/17/24 History
hydrocodone 7.5 mg-acetaminophen 1 tab PO TIDPRN PRN arthritis pain 04/22/24 05/17/24 History
325 mg tablet
losartan 100 mg tablet 100 mg PO DAILY Blood Pressure 04/22/24 05/17/24 History
Review of Systems
-
History Source: Patient and Family ( and son bedside helping with HPI and asking questions)
All other systems: Negative unless noted
Physical Exam
Vital Signs
Temp Pulse Resp BP Pulse Ox
98 F 76 17 158/71 97
05/17/24 12:43 05/17/24 13:30 05/17/24 13:30 05/17/24 13:30 05/17/24 13:30
General: NAD. AAO x3
Skin: Warm, dry and pink. No rash.
HEENT: EOMI
Heart: SR on tele. Distant heart sounds no murmurs. Reg. No murmur
Lungs: 2 L NC. B/L rales without wheeze
Abdomen: Mildly distended. +BS, NT, soft
Extremities: Pitting edema to buttocks/anasarca. Excoriations B/L LE.
: +Gomez catheter draining clear yellow urine
Lab Results
05/17/24 10:34
05/17/24 11:03
Troponin I 0.083 ng/ml H* 05/17/24 11:03
Xsl-F-Sotfazsalnq Pept 13269 pg/ml 05/17/24 11:03
Impression / Plan
-
PCP: Dr. Misbah Barton
Primary Cupola Tender Helper: Dr. Crane ( follows with Dr Maldonado)
Impression:
Admitted with flash pulmonary edema 05/17/24
Recent admission for LIA and acute HF during which patient left AMA 04/22/24 until 04/26/24
Acute on chronic HFpEF
Acute on chronic LE edema
LIA on CKD 4
Hypertensive emergency
Multidrug resistant hypertension
Elevated troponin
Paroxysmal atrial fibrillation
newly diagnosed 04/2024
Not chronically anticoagulated due to inability to safely dose OAC in the setting of LIA
Anemia of chronic disease
Hypoalbuminemia
DM2
Diabetic nephropathy
Proteinuria
HLD
Obesity, previously on Mounjaro
ECHO 04/23/24: EF 50 to 55%, mild concentric LVH, aortic sclerosis, mild TR, PAP 51 mmHg, small pericardial effusion without evidence of hemodynamic compromise, pleural effusion present
Plan:
-Patient came to [facility] today with flash pulmonary edema and HTN emergency, cardiology has been consulted. Patient was admitted to 04/22/24 until 04/26/24 with newly diagnosed acute HF and Afib along with LIA on CKD 4. Patient was followed by
cardiology, intensive medicine and nephrology that admission. Nephrology suggested HD, but patient was anxious for d/c due to a previously scheduled family reunion in [place] and ultimately left AM. Patient had diuresed 11 lbs and possibly a bit
more that admission and says he actually felt much better when he left and that he did well at the family reunion, but patient's feels like she noticed patient more SOB and taking breaks after walking up a flight of stairs because he was SOB.
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
breather. Coworkers, who are also clean room assembler, noticed that patient appeared to be in distress and brought him to [facility] vis ambulance and gave him up to 8 doses of NTG SL in the ambulance along with BiPAP, but patient says none of that made him feel better
until he arrived in the ER and was started on Nitro gtt. Patient reports he feels symptomatically improved, but nowhere near baseline and says that he is willing to stay in the hospital to receive the care he needs.
-ECG reviewed by me shows SR without acute ST changes.
-Initial Troponin 0.083. No chest pain. Patient had elevated Troponin up to 0.087 last admission as well. No WMA. No acute ischemic changes on ECG. Will manage as a nonischemic myocardial injury Troponin elevation due to HTN emergency and flash
pulmonary edema for now.
-Patient is high risk for cath given CKD 4 and not yet being committed to HD.
-Christian discussion with patient, and son. Outlined that he will likely need HD based on previous nephrology notes. Encouraged patient and , son to be open to suggestions.
-Patient with anasarca and pitting edema to buttocks. He has scrotal edema again as well. Gomez catheter in place.
-Patient will need IV diuresis for now and likely eventual HD as noted above. Agree with Lasix 80 mg IV x1 in the ER and Nitro gtt. Lasix 80 mg IV BID ordered with a dose scheduled for 1600 today.
-Patient was taking Bumex 1.5 mg BID prior to admission and says he has been compliant.
-EF was 50-55% last admission.
-Outpatient dose of Coreg 25 mg BID has been continued
-Outpatient dose of hydralazine 25 mg BID has been continued
-Outpatient dose of losartan 100 mg daily is on hold due to LIA
-Nitro gtt running at 100 mcg in the ER and would continue for now. BP 156/70
-Patient reports that he sees his PCP regularly including physicals. PCP prescribed Mounjaro. Despite this patient with significant HTN. Nephrology added Procardia 30 mg BID last admission was considering adding clonidine.
-Patient with newly diagnosed paroxysmal Afib last admission. Currently in SR. Patient was not started on OAC due to LIA on CKD 4 and there was concern as to whether NOAC could be started it patient was not being initiated on HD. Warfarin was
considered, but compliance was a concern. There is not h/o thromboembolic event. Patient was on Heparin gtt last admission.
-Patient reports he is no longer taking Mounjaro, he says Dr. Barton stopped Mounjaro because HgbA1c was 5%
[2024-05-17 13:44] LABS: Iron 78 ug/dl (49-181)
[2024-05-17 13:55] LABS: Percent Saturation 40 % (20-50); Total Iron Binding Capacity 193 ug/dl (261-462)
[2024-05-17 16:09] LABS: Folate 6.8 ng/ml (2.76-20); Vitamin B12 264 pg/ml (239-931)
--- NOTE | 2024-05-17 16:14 | W.CON.NEPH ---
Consultation
-
Date/Time Consultation Requested: 05/17/2024 1 PM
Date/Time Consultation Performed: 05/17/2024 4 PM
Requesting Provider: Dr. Francois
Performing Provider: Dr. Cobian
Reason for Consultation: LIA
Medical History
-
Chief Complaint: Acute kidney injury/hypertensive emergency
History of Present Illness:
The patient is a 69-year-old male with a multidrug resistant hypertension of longstanding duration. In the outpatient setting he has been treated with a combination of Bumex carvedilol hydralazine and losartan. His blood pressure has been very
difficult to control in the outpatient setting. He also has a history of longstanding diabetes with recent A1c of 5.2. He was taken off Mounjaro not long ago. He has known chronic kidney disease with a creatinine which has been slowly rising over
time. With his last admission his creatinine was around 3.0. He was in the hospital in April for decompensated heart failure. He left AGAINST MEDICAL ADVICE on April 26. Today while at work he became acutely short of breath and his
coworkers brought him to the hospital. His symptoms were slightly improved with nitroglycerin. He thinks that the last time he had no significant swelling was a few weeks ago. He says that he follows no diet though he tries to avoid foods with
salt. He also says that he has reduced his fluid intake to approximately 64 ounces per day. At the time of admission he was noted to have a creatinine of 4.4 though this is improved from his discharge creatinine of 4.9 but both values are still
elevated with respect to his chronic kidney disease and branch service representative of acute kidney injury.
Past Medical History
Hypertension
DM-II
Obesity
Dyslipidemia
Obesity
CKD 4
Proteinuria
Heart failure preserved ejection fraction
Tonsillectomy
Paroxysmal atrial fibrillation
Social History
Tobacco: Former Smoker
Alcohol: Occasional
Drug: None
Family History
No CKD
Allergies / Home Medications
Allergy/AdvReac Type Severity Reaction Status Date / Time
No Known Allergies Allergy Verified 04/22/24 17:56
�Medication �Instructions �Recorded �Confirmed �Type
aspirin 81 mg chewable tablet 81 mg PO DAILY Blood Clot 04/22/24 05/17/24 History
Prevention/Tx
atorvastatin 20 mg tablet 20 mg PO HS High Cholesterol 04/22/24 05/17/24 History
bumetanide 1 mg tablet 1.5 mg PO BID Fluid 04/22/24 05/17/24 History
Retention/Swelling
carvedilol 25 mg tablet 25 mg PO BID Blood Pressure 04/22/24 05/17/24 History
hydralazine 25 mg tablet 25 mg PO BID Blood Pressure 04/22/24 05/17/24 History
hydrocodone 7.5 mg-acetaminophen 1 tab PO TIDPRN PRN arthritis pain 04/22/24 05/17/24 History
325 mg tablet
losartan 100 mg tablet 100 mg PO DAILY Blood Pressure 04/22/24 05/17/24 History
Review of Systems
-
Shortness of breath. No chest pain. Lower extremity edema. The remainder of the complete review of systems was negative
Physical Exam
Vital Signs
Vital Signs
Temp Pulse Resp BP Pulse Ox
98 F 73 16 157/75 96
05/17/24 12:43 05/17/24 14:00 05/17/24 14:00 05/17/24 15:30 05/17/24 14:00
Lab Results
WBC 14.6 10^3/uL (4.8-10.8) H 05/17/24 10:34
RBC 3.03 10^6/uL (4.70-6.10) L 05/17/24 10:34
Hgb 9.6 g/dL (13.0-18.0) L 05/17/24 10:34
Hct 29.3 % (39.0-52.0) L 05/17/24 10:34
Plt Count 224 10^3/uL (130-400) 05/17/24 10:34
Sodium 140 mmol/L (135-145) 05/17/24 11:03
Potassium 4.4 mmol/L (3.5-5.1) 05/17/24 11:03
Chloride 111 mmol/L (98-107) H 05/17/24 11:03
Carbon Dioxide 20 mmol/L (22-30) L 05/17/24 11:03
BUN 54 mg/dl (9-20) H 05/17/24 11:03
Creatinine 4.4 mg/dL (0.7-1.3) H* 05/17/24 11:03
eGFR 13.94 05/17/24 11:03
Glucose 240 mg/dl (70-99) H 05/17/24 11:03
Calcium 7.7 mg/dl (8.4-10.2) L 05/17/24 11:03
Hhz-P-Doiqjlaizbg Pept 16196 pg/ml 05/17/24 11:03
Albumin 2.8 g/dl (3.5-5.0) L 05/17/24 11:03
Laboratory Tests
04/22/2424 05/17/24
20:19 04:19 11:03
Creatinine 4.9 H*
Phosphorus 5.1 H
Total Protein 5.1 L
Albumin 2.8 L
Protein/Creatinin Ratio 22.7
Physical Exam
Patient is awake alert oriented and in no distress. Mood and affect were pleasant, insight and judgment were good. Pupils are equal round and reactive to light, extraocular movements are intact, sclera were anicteric. Hearing was normal, ears and
nose are intact. Oropharynx was clear. Neck was supple with trachea midline and no thyromegaly. Heart was regular rate and rhythm without rubs. Lower extremities with 3+ to the thighs edema. Lungs were coarse to auscultation bilaterally and with
normal excursion. Abdomen was soft, nontender, with normal active bowel sounds, and no hepatosplenomegaly. Skin was without rash and with normal turgor.
Data Reviewed
-
Radiology: Image Personally Visualized and interpreted (Chest x-ray on May 17, 2024 by my reading shows cardiomegaly, pulmonary edema)
Medical Tests (Nuc Med, Echo etc): Image Personally Visualized and interpreted (EKG on May 17, 2024 I review shows sinus rhythm septal Q, lateral ST-T wave abnormality) and Report Reviewed by me (Echocardiogram on April 23, 2024 shows ejection
fraction 50%, mild TR, aortic sclerosis)
Labs: Labs Reviewed by me
Old Records: Reviewed
Assessment/Plan
-
Impression:
Hypertension
Heart failure reduced ejection fraction decompensated
Acute on chronic kidney disease
Chronic kidney disease stage IV
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
Hyperlipidemia
Edema
Anemia
Proteinuria
Plan:
ARB will be held
Hydralazine will be increased to 50 mg twice daily and further titrated as required
May consider use of clonidine if blood pressure remains uncontrolled
Diuresis with IV Lasix
Zaroxolyn may be added if necessary
Additional serologic workup will be performed for his proteinuria, PEP previously were negative
24-hour urine collection to quantify proteinuria
Will need strict diet control
Renal duplex
No emergent dialysis needs currently
Total Time Spent with Patient (in minutes): 31 minutes spent in critical care time
[2024-05-17 18:21] LABS: Glucose - Point of Care 102 mg/dl (70-99)
[2024-05-17 18:27] LABS: Troponin I 0.863 ng/ml
[2024-05-17 18:34] LABS: Complement C3 95 mg/dl (88-165)
[2024-05-17] MEDS: HEPARIN 5000 UNITS SC (20:18)
[2024-05-17] MEDS: LIPITOR 20 MG PO (20:18)
[2024-05-17] MEDS: COREG 25 MG PO (20:19)
[2024-05-17] MEDS: APRESOLINE 50 MG PO (20:19)
[2024-05-17 21:47] LABS: Glucose - Point of Care 162 mg/dl (70-99)
[2024-05-17 23:58] LABS: Troponin I 0.938 ng/ml
[2024-05-18] VITALS (50 sets, daily range): BP systolic 86–160; BP diastolic 46–98; BMI 32.5
[2024-05-18] MEDS: NITROGLYCERIN PREMIX 250 IV (00:55)
--- NOTE | 2024-05-18 02:29 | PTCARENOTE ---
Addendum entered by Jayne Shields RN 05/18/24 05:08:
24hr urine started at 21:15
Original Note:
Pt resting comfortably in bed. AAOx3. NSR on monitor. Positive pedals. +2 pitting edema to B/L upper and lower ext. Trop elevated at 0.938, EKG done. SaO2 96% on 2LNC. DORANTES, lungs with crackles to B/L base. Continent of bowel/bladder. 24hr urine
started at 20:00. Scattered lower extremity abrasions, scabbed and open to air. Blood&urine cx pending. VSS. BP 134/70. Nitro gtt currently infusing at 95 mcg/min (14.3ml/hr) to keep SBP<160. Call menjivar and belongings within reach. Able to make needs
known.
[2024-05-18] MEDS: TYLENOL 650 MG PO (04:13)
[2024-05-18 04:30] LABS: Hematocrit 23.7 % (39.0-52.0); Hemoglobin 7.8 g/dL (13.0-18.0); Mean Corp Hgb Conc. 32.9 g/dL (33.0-37.0); Mean Corpuscular Hgb 32.4 pg (27.0-31.0); Mean Corpuscular Volume 98.3 fL (80.0-94.0); Mean Platelet Volume 10.8 fL (7.4-10.4); Platelet Count 152 10^3/uL (130-400); Red Blood Cell Count 2.41 10^6/uL (4.70-6.10); Red Cell Dist. Width 14.3 % (11.5-14.5); White Blood Cell Count 9.5 10^3/uL (4.8-10.8)
[2024-05-18 05:29] LABS: TSH Reflex To Free T4 0.96 uIU/ml (0.47-4.68)
[2024-05-18 05:30] LABS: Troponin I 0.874 ng/ml
[2024-05-18 05:39] LABS: ALT (SGPT) 18 U/L (0-50); AST (SGOT) 17 U/L (17-59); Albumin 2.3 g/dl (3.5-5.0); Alkaline Phosphatase 77 U/L (38-126); Blood Urea Nitrogen 55 mg/dl (9-20); Calcium 7.7 mg/dl (8.4-10.2); Carbon Dioxide 21 mmol/L (22-30); Chloride 113 mmol/L (98-107); Estimated Creatinine Clearance 20 ml/min; Glucose 96 mg/dl (70-99); HDL Cholesterol 42 mg/dl; LDL Cholesterol, Calculated 50 mg/dl; Magnesium 2.2 mg/dl (1.6-2.3); Potassium 3.7 mmol/L (3.5-5.1); Sodium 141 mmol/L (135-145); Total Bilirubin 0.5 mg/dl (0.2-1.3); Total Cholesterol 115 mg/dl (50-199); Total Protein 4.4 g/dl (6.3-8.2); Triglyceride 119 mg/dl (10-149); Very Low Density Lipoprotein 23 mg/dl (0-30); eGFR 13.22
[2024-05-18 05:42] LABS: Hepatitis C Antibody Negative (Negative)
--- NOTE | 2024-05-18 07:37 | W.PN.HOSP.TC ---
Today's Communication/Plan
-
Continue IV Diuresis, wean NTG gtt, wean O2, monitor renal function, monitor hgb, iron and B-12, Folate pending, discuss the patient w Nephro and Cards
Assessment / Plan
Assessment / Plan
#Acute flash pulmonary edema in setting of HTN emergency
HX chr HFpEF; 04/23/24 TTE LVEF 50-55%
HTN emergency; improving on NTG gtt and weaning down per protocol
- sig elevated proBNP
- s/p IV lasix 80 x 1 at ER, continue IV Lasix BID for now, monitor renal function
- cont IV Lasix 80 BID for now, discuss with nephrology -940 fluid balance
- Off BiPAP, on 2 L NC today
- Trend BP
- F/U Wt, IOs daily
- daily BMP
- DA card consult appreciated
#Elevated TPNI; likely NIMI
- TPNI peaked, myocardial demand ischemia 2/2 HTN emergency and acute HFpEF w flash pulm edema
#Acute on CKD stage IV- baseline Cr mid 4s, baseline eGFR mid 10s , creat today 4.6 , discuss with Nephrology, cont IV Lasix for now and monitor closely
Azotemia
Chr macrocytic anemia - stable Hgb
Expanded volume
- Hold losartan and PO Bumex
- Cont to trend Cr with Diuresis
- Cont to trend Hgb
-K 3.7, replace K, Mg normal
- Renal consult appreciated
#Hyperglycemia
T2 DM
Patient states that he started Mounjaro at the beginning of 2023 and has since stopped due to HgA1C 5.0
Significant weight loss initially and he was taken off of his insulin therapy.
- add ISS low , monitor, stable at this time
#Obesity due to excess calories. fluid overload
- Weight loss over the past year on Mounjaro.
- Hold during inpatient stay but resume at discharge.
#Acute anemia, possibly due to anemia of chronic disease and B12 or folate deficiency; Hgb 7.8 today, no active bleeding
-check B12, Folate, iron studies
#Question of A.fib history, pt not on anticoagulation-discuss w Cardiology
DVT Px: SQH
Full code
IMU
Anticipated Discharge: > 48 hours
Subjective/Interval History
-
Date of Service: May 18, 2024
Still w anasarca b/l LE edema, -940 fluid balance, less SOB today, no active bleeding, he feels thirsty.
Objective Data
-
Labs:
Laboratory Results
05/18/24
04:08
WBC 9.5
Hgb 7.8 L
Hct 23.7 L
Plt Count 152 D
Sodium 141
Potassium 3.7
Chloride 113 H
Carbon Dioxide 21 L
BUN 55 H
Creatinine 4.6 H*
Glucose 96
Calcium 7.7 L
Total Bilirubin 0.5
AST 17
ALT 18
Alkaline Phosphatase 77
Vital Signs:
Vital Signs
Temp Pulse Resp BP Pulse Ox
98.4 F 75 21 144/69 98
05/18/24 07:28 05/18/24 06:00 05/18/24 06:00 05/18/24 06:00 05/18/24 06:00
I&O
05/17/24 05/18/24 05/19/24
06:59 06:59 06:59
Intake Total 960 / 960
Output Total 1900 / 1900
Balance -940 / -940
Review of Systems
-
History Source: Patient
Constitutional: Reports No Symptoms
EENT: Reports No Symptoms Reported
Respiratory: Reports Trouble Breathing (improving from yesterday 'like night and day')
Cardiac: Reports No Symptoms
Abdomen/GI: Reports No Symptoms
Breast: Reports No Symptoms
Genitourinary: Reports No Symptoms
Musculoskeletal: Reports Edema (extensive b/l LE edema to scrotum, LE anasarca)
Skin: Reports No Symptoms
Neuro: Reports No Symptoms
Endocrine: Reports No Symptoms
Hematologic / Lymphatic: Reports No Symptoms
Allergy / Immunology: Reports No Symptoms
Physical Exam
-
General: Well Developed, Well Nourished, No Apparent Distress and Comfortable
HEENT: Normocephalic, Atraumatic and Moist Mucous Membranes
Respiratory: Clear to Auscultation
Cardiac: Regular Rhythm and S1/S2
GI: Soft, Nondistended and Normal Bowel Sounds
Musculoskeletal: No Clubbing, No Cyanosis and No Edema (extensive LE edema to scrotum, anasarca )
Skin: Warm and Dry
Neuro: AO x 3 and No Motor Deficits
Psych: Calm
Data Reviewed
-
Total Time Spent with Patient (in minutes): 35
Critical Care Time (in minutes): 35
Diagnostic Radiology: Image personally visualized and interpreted and Report Reviewed by me
Medical Tests (Nuc Med, Echo etc): Image personally visualized and interpreted and Report Reviewed by me
Labs: Labs Reviewed by me, Discussed with Patient and Discussed with Family
[2024-05-18 07:54] LABS: Glucose - Point of Care 107 mg/dl (70-99)
--- NOTE | 2024-05-18 08:10 | PTCARENOTE ---
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 No`events noted overnight until shift change. Currently on 2L, will wean to Room Air. No complaints of pain at this time. Currently working on a 24hr urine. Scheduled for US this afternoon, NPO for lunch.
Call menjivar in reach.
--- NOTE | 2024-05-18 08:24 | W.PN.NEPH.PH ---
Today's Communication / Plan
-
Maintain IV diuretics
Continues on nitroglycerin gtt
Add Procardia XL 30 mg twice daily
Escalate hydralazine to 50 mg 3 times daily
Consult interventional radiology for catheter placement tomorrow
HD to be initiated tomorrow orders provided
Assessment/Plan
-
Impression:
Hypertension
Heart failure reduced ejection fraction decompensated
Acute on chronic kidney disease
Chronic kidney disease stage IV
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
Hyperlipidemia
Edema
Anemia
Proteinuria
Plan:
ARB will be held in the setting of acute kidney
LIA worsening creatinine 4.6
Anemia worsening
Urine output via Gomez nonoliguric, weights wildly inaccurate
Hydralazine will be increased to 50 mg twice daily and further titrated as required, remains on carvedilol 25 mg twice daily, nitroglycerin drip
Will titrate up hydralazine to 50 mg 3 times daily and add Procardia
May consider use of clonidine if blood pressure remains uncontrolled
Echocardiogram reviewed shows normal EF with no regional wall motion abnormalities severely dilated left atrium mild to moderate tricuspid regurgitation pulmonary pressure 51 small pericardial effusion
Maintain Lasix 80 mg IV twice daily for volume overload and uncontrolled hypertension in the setting of worsening renal failure
Zaroxolyn may be added if necessary
Additional serologic workup will be performed for his proteinuria, PEP previously were negative
24-hour urine collection to quantify proteinuria
Will need strict diet control
Renal duplex for uncontrolled HTN
Patient at high clinical risk with worsening renal failure and uncontrolled hypertension requiring IV diuretics and aggressive antihypertensive therapy
Long detailed discussion with the patient we will proceed forth with preparation for hemodialysis
IR to be consulted to place catheter tomorrow with dialysis following
HD orders provided tomorrow
-
-
Date of Service: May 18, 2024
CC / HPI / ROS
-
Chief Complaint:
LIA
Hypertensive emergency
History of Present Illness:
Blood pressure stabilized on nitroglycerin drip and multiple oral antihypertensives
Acute kidney injury worsening with creatinine up to 4.6
Review of Systems:
Less short of breath no reported chest pain
Nonoliguric
Weights not even close
Labs
-
Labs:
WBC 9.5 10^3/uL (4.8-10.8) 05/18/24 04:08
RBC 2.41 10^6/uL (4.70-6.10) L 05/18/24 04:08
Hgb 7.8 g/dL (13.0-18.0) L 05/18/24 04:08
Hct 23.7 % (39.0-52.0) L 05/18/24 04:08
Plt Count 152 10^3/uL (130-400) D 05/18/24 04:08
Sodium 141 mmol/L (135-145) 05/18/24 04:08
Potassium 3.7 mmol/L (3.5-5.1) 05/18/24 04:08
Chloride 113 mmol/L (98-107) H 05/18/24 04:08
Carbon Dioxide 21 mmol/L (22-30) L 05/18/24 04:08
BUN 55 mg/dl (9-20) H 05/18/24 04:08
Creatinine 4.6 mg/dL (0.7-1.3) H* 05/18/24 04:08
eGFR 13.22 05/18/24 04:08
Glucose 96 mg/dl (70-99) 05/18/24 04:08
Calcium 7.7 mg/dl (8.4-10.2) L 05/18/24 04:08
Lmq-V-Rslanqlgmvy Pept 40119 pg/ml 05/17/24 11:03
Albumin 2.3 g/dl (3.5-5.0) L 05/18/24 04:08
Physical Exam
-
Vital Signs:
Vital Signs
Temp Pulse Resp BP Pulse Ox
98.4 F 82 26 157/76 97
05/18/24 07:28 05/18/24 08:01 05/18/24 08:01 05/18/24 08:01 05/18/24 08:01
Cardiovascular:: Regular rate and rhythm
Respiratory:: Bilateral: Coarse (Fine crackles at bases)
Lung Excursion:: Normal
Abdomen:: Nontender and Soft
Bowel Sounds:: Normal
Extremity Edema:: +3: Bilateral:
Gomez Catheter: Yes
[2024-05-18] MEDS: COREG 25 MG PO ×2 (08:39→20:01)
[2024-05-18] MEDS: APRESOLINE 50 MG PO ×3 (08:39→21:47)
[2024-05-18] MEDS: HEPARIN 5000 UNITS SC (08:39)
[2024-05-18] MEDS: KCL 40 MEQ PO (08:39)
[2024-05-18] MEDS: LASIX 80 MG IV ×2 (08:40→17:36)
[2024-05-18] MEDS: LOW STRENGTH ASPIRIN 81 MG PO (08:40)
--- NOTE | 2024-05-18 09:14 | W.PN.CARDCBS ---
Today's Communication / Plan
-
Continue Lasix 80 mg IV twice daily and follow creatinine per nephrology. Plan is for dialysis catheter to be placed.
Start IV heparin for paroxysmal atrial fibrillation which eventual transition to Eliquis once procedures are finished. He remains in sinus rhythm for now.
Echo reviewed with LVEF of 50 to 55% with small pericardial effusion and mild to moderate TR with PA pressures in the 50s.
Continue Coreg 25 mg p.o. twice daily. Agree with increasing hydralazine to 50 mg p.o. 3 times daily. Wean nitro.
Continue nifedipine.
Abnormal troponin is likely nonischemic myocardial injury. Will need eventual ischemic evaluation after kidneys settle out on dialysis.
Impression / Plan
-
PCP: Dr. Misbah Barton
Primary Electronic Parts Salesperson: Dr. Crane ( follows with Dr Maldonado)
Impression:
Admitted with flash pulmonary edema 05/17/24
Recent admission for LIA and acute HF during which patient left [facility] 04/22/24 until 04/26/24
Acute on chronic HFpEF
Acute on chronic LE edema
LIA on CKD 4
Hypertensive emergency
Multidrug resistant hypertension
Elevated troponin
Paroxysmal atrial fibrillation
newly diagnosed 04/2024
Not chronically anticoagulated due to inability to safely dose OAC in the setting of LIA
Anemia of chronic disease
Hypoalbuminemia
DM2
Diabetic nephropathy
Proteinuria
HLD
Obesity, previously on Mounjaro
ECHO 04/23/24: EF 50 to 55%, mild concentric LVH, aortic sclerosis, mild TR, PAP 51 mmHg, small pericardial effusion without evidence of hemodynamic compromise, pleural effusion present
Plan:
-Patient came to [facility] today with flash pulmonary edema and HTN emergency, cardiology has been consulted. Patient was admitted to 04/22/24 until 04/26/24 with newly diagnosed acute HF and Afib along with LIA on CKD 4. Patient was followed by
cardiology, intensive medicine and nephrology that admission. Nephrology suggested HD, but patient was anxious for d/c due to a previously scheduled family reunion in [place] and ultimately left AMA. Patient had diuresed 11 lbs and possibly a bit
more that admission and says he actually felt much better when he left and that he did well at the family reunion, but patient's feels like she noticed patient more SOB and taking breaks after walking up a flight of stairs because he was SOB.
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
breather. Coworkers, who are also sales lead generator, noticed that patient appeared to be in distress and brought him to [facility] vis ambulance and gave him up to 8 doses of NTG SL in the ambulance along with BiPAP, but patient says none of that made him feel better
until he arrived in the ER and was started on Nitro gtt. Patient reports he feels symptomatically improved, but nowhere near baseline and says that he is willing to stay in the hospital to receive the care he needs.
-ECG reviewed by me shows SR without acute ST changes.
-Abnormal troponin of 0.8. No acute ischemic changes on ECG. Will manage as a nonischemic myocardial injury Troponin elevation due to HTN emergency and flash pulmonary edema for now.
-Patient is high risk for cath given CKD 4 and not yet being committed to HD.
-Plan is for dialysis catheter to be placed. Plan will be to proceed with hemodialysis.
-Outpatient dose of Coreg 25 mg BID has been continued
-Outpatient dose of hydralazine 25 mg BID has been continued
-Outpatient dose of losartan 100 mg daily is on hold due to LIA
-Wean nitroglycerin
-Patient reports that he sees his PCP regularly including physicals. PCP prescribed Mounjaro. Despite this patient with significant HTN. Nephrology added Procardia 30 mg BID last admission was considering adding clonidine.
-Patient with newly diagnosed paroxysmal Afib last admission. Currently in SR. Patient was not started on OAC due to LIA on CKD 4 and there was concern as to whether NOAC could be started it patient was not being initiated on HD. Warfarin was
considered, but compliance was a concern. There is not h/o thromboembolic event. Will start IV heparin and likely transition to Eliquis once on dialysis.
-Patient reports he is no longer taking Mounjaro, he says Dr. Barton stopped Mounjaro because HgbA1c was 5%
Progress Note - Electronic Parts Salesperson
Subjective
Date of Service: May 18, 2024
Improving and weight is down some. He is diuresing. Plan is for dialysis catheter to be placed over the next 24 hours. He denies any chest pains.
Objective
Labs:
05/18/24 04:08
05/18/24 04:08
Labs
Hgb 7.8 g/dL (13.0-18.0) L 05/18/24 04:08
Hct 23.7 % (39.0-52.0) L 05/18/24 04:08
Plt Count 152 10^3/uL (130-400) D 05/18/24 04:08
Sodium 141 mmol/L (135-145) 05/18/24 04:08
Potassium 3.7 mmol/L (3.5-5.1) 05/18/24 04:08
BUN 55 mg/dl (9-20) H 05/18/24 04:08
Creatinine 4.6 mg/dL (0.7-1.3) H* 05/18/24 04:08
Glucose 96 mg/dl (70-99) 05/18/24 04:08
Troponins
05/17/24 05/17/24 05/17/24
10:34 11:03 17:49
Troponin I Cancelled 0.083 H* 0.863 H* D
05/17/24 05/18/24
23:14 04:08
Troponin I 0.938 H* 0.874 H*
Vital Signs and I&O:
Vital Signs
Temp Pulse Resp BP Pulse Ox
98.4 F 88 26 153/69 97
05/18/24 07:28 05/18/24 08:39 05/18/24 08:01 05/18/24 08:39 05/18/24 08:01
Vital Signs
Temp Pulse Resp BP Pulse Ox
98.4 F 88 26 153/69 97
05/18/24 07:28 05/18/24 08:39 05/18/24 08:01 05/18/24 08:39 05/18/24 08:01
Intake & Output
05/16/24 05/17/24 05/18/24 05/19/24
06:59 06:59 06:59 06:59
Intake Total 960 / 960
Output Total 1900 / 1900 300 / 300
Balance -940 / -940 -300 / -300
Physical Exam
Physical Exam
GEN: No distress, awake, Ox3
HEENT: supple, anicteric, mmm
LUNGS: dec BS at bases
CV: Reg, S1/S2, 1/6 syst LSB, S3+
ABD: soft, BS+, NT/ND
EXT: ++ edema
NEURO: Gross non-focal
SKIN: No rash
[2024-05-18 09:32] LABS: Total Iron Binding Capacity 181 ug/dl (261-462)
[2024-05-18 10:07] LABS: Vitamin B12 243 pg/ml (239-931)
[2024-05-18 11:03] LABS: INR 1.27; PT 16.2 Sec (11.4-14.6)
[2024-05-18 11:04] LABS: APTT 30.3 Sec (23.4-35.0)
[2024-05-18 11:59] LABS: Glucose - Point of Care 156 mg/dl (70-99)
[2024-05-18] MEDS: HEPARIN 25000 UNITS/250 ML IV (13:01)
--- NOTE | 2024-05-18 13:16 | PTCARENOTE ---
Spoke with Nan in IR concerning Heparin gtt that was started opposed to sq Heparin. To be called tomorrow with a time to place on hold for procedure.
--- NOTE | 2024-05-18 14:21 | CM ---
Patient with Hx HF, CKD IV being treated with Nitro gtt for HTN emergency, IV Lasix for flash pulmonary edema, Heparin gtt for PAF. Plan new HD starting tomorrow after HD catheter placed. Room air. Per nursing assessment; assist of 1 for activity.
Met with patient who resides with his and son in a 2SH, 1 step to enter.
The patient was independent in ADLs and ambulation.
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
The patient has no DME, prior VN or SNF.
PCP - Misbah Barton
Pharmacy - [facility], [place]
Message from Dr Farrell confirming need for outpatient HD, Dx LIA.
Discussed with patient the need for a referral to outpatient HD - he would like to go to [facility], no preference days of week however would like 2pm start time (he can finish work at 1:30pm). He will drive himself to dialysis.
Spoke with [facility]; referral initiated. Hepatitis labs pending. Relayed patient's schedule preference. Clinical info sent via [employer].
Plan home with [facility].
[2024-05-18 16:46] LABS: Glucose - Point of Care 121 mg/dl (70-99)
[2024-05-18 19:20] LABS: APTT 43.3 Sec (23.4-35.0)
[2024-05-18] MEDS: LIPITOR 20 MG PO (20:01)
[2024-05-18] MEDS: PROCARDIA XL (EXTENDED RELEASE) 30 MG PO (20:02)
[2024-05-18] MEDS: LOPRESSOR 2.5 MG IV (21:47)
[2024-05-18 21:54] LABS: Hematocrit 25.5 % (39.0-52.0); Hemoglobin 8.4 g/dL (13.0-18.0); Mean Corp Hgb Conc. 32.9 g/dL (33.0-37.0); Mean Corpuscular Hgb 31.6 pg (27.0-31.0); Mean Corpuscular Volume 95.9 fL (80.0-94.0); Mean Platelet Volume 10.7 fL (7.4-10.4); Platelet Count 159 10^3/uL (130-400); Red Blood Cell Count 2.66 10^6/uL (4.70-6.10); Red Cell Dist. Width 14.5 % (11.5-14.5); White Blood Cell Count 9.8 10^3/uL (4.8-10.8)
--- NOTE | 2024-05-18 22:04 | PTCARENOTE ---
Pt noted to be in afib RVR at 21:10. BP 153/92 HR 147 SaO2 96% on RA. Pt slightly SOB at rest. No other complaints. FAMILY PRACTICE PHYSICIAN Hephziba notified via tiger text @ 9:14. EKG done. Afib RVR with PVC. Stat CBC, BMP and Mag drawn. 2.5mg IV lopressor given. HR
116 @ 21:47. Hep gtt currently at 12ml/hr, nitro gtt currently at 9.8ml/hr.
[2024-05-18 22:14] LABS: Glucose - Point of Care 132 mg/dl (70-99)
[2024-05-18 22:31] LABS: Blood Urea Nitrogen 63 mg/dl (9-20); Calcium 8.4 mg/dl (8.4-10.2); Carbon Dioxide 21 mmol/L (22-30); Chloride 110 mmol/L (98-107); Estimated Creatinine Clearance 20 ml/min; Glucose 114 mg/dl (70-99); Magnesium 2.3 mg/dl (1.6-2.3); Potassium 3.8 mmol/L (3.5-5.1); Sodium 138 mmol/L (135-145); eGFR 13.22
[2024-05-19] VITALS (26 sets, daily range): BP systolic 60–142; BP diastolic 39–74; BMI 35.6
--- NOTE | 2024-05-19 00:40 | PTCARENOTE ---
nitro gtt on hold @23:36 for BP 86/52. BP 98/48 @ 00:00. BP 108/41 @00:30. ODD SHOE EXAMINER Marisolhziba notified via tiger text.
[2024-05-19 02:02] LABS: APTT 34.4 Sec (23.4-35.0)
[2024-05-19 05:38] LABS: Glucose - Point of Care 136 mg/dl (70-99)
[2024-05-19 06:39] LABS: 24 Hour Urine Total Volume 2400 ml
[2024-05-19 06:49] LABS: 24 Hour Urine Creatinine 1.624 gm/day (1.0-2.0)
[2024-05-19 07:26] LABS: Urine Protein 719 mg/dl (0-12)
[2024-05-19] MEDS: PROCARDIA XL (EXTENDED RELEASE) 30 MG PO (07:30)
[2024-05-19] MEDS: COREG 25 MG PO ×2 (07:30→20:34)
[2024-05-19] MEDS: LOW STRENGTH ASPIRIN 81 MG PO (07:31)
[2024-05-19] MEDS: APRESOLINE 50 MG PO ×3 (07:31→22:20)
--- NOTE | 2024-05-19 08:37 | W.PN.CARDCBS ---
Today's Communication / Plan
-
Back in A-fib. Continue carvedilol 25 mg p.o. twice daily. Continue IV heparin. Eventually add Eliquis once dialysis access is established.
Will stop nifedipine and add diltiazem 120 mg daily.
Wean off nitroglycerin
Continue hydralazine 50 mg p.o. 3 times daily
Continue Lasix for now with plans for dialysis.
Continue aspirin and atorvastatin.
Abnormal troponin is likely nonischemic myocardial injury. Will need eventual ischemic evaluation.
Impression / Plan
-
PCP: Dr. Misbah Barton
Primary Laborer Shipyard: Dr. Crane ( follows with Dr Maldonado)
Impression:
Admitted with flash pulmonary edema 05/17/24
Recent admission for LIA and acute HF during which patient left [facility]MA 04/22/24 until 04/26/24
Acute on chronic HFpEF
Acute on chronic LE edema
LIA on CKD 4
Hypertensive emergency
Multidrug resistant hypertension
Elevated troponin
Paroxysmal atrial fibrillation
newly diagnosed 04/2024
Not chronically anticoagulated due to inability to safely dose OAC in the setting of LIA
Anemia of chronic disease
Hypoalbuminemia
DM2
Diabetic nephropathy
Proteinuria
HLD
Obesity, previously on Mounjaro
ECHO 04/23/24: EF 50 to 55%, mild concentric LVH, aortic sclerosis, mild TR, PAP 51 mmHg, small pericardial effusion without evidence of hemodynamic compromise, pleural effusion present
Plan:
-Patient came to [facility] today with flash pulmonary edema and HTN emergency, cardiology has been consulted. Patient was admitted to 04/22/24 until 04/26/24 with newly diagnosed acute HF and Afib along with LIA on CKD 4. Patient was followed by
cardiology, intensive medicine and nephrology that admission. Nephrology suggested HD, but patient was anxious for d/c due to a previously scheduled family reunion in [place] and ultimately left AMA. Patient had diuresed 11 lbs and possibly a bit
more that admission and says he actually felt much better when he left and that he did well at the family reunion, but patient's feels like she noticed patient more SOB and taking breaks after walking up a flight of stairs because he was SOB.
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
breather. Coworkers, who are also liaison officer, noticed that patient appeared to be in distress and brought him to [facility] vis ambulance and gave him up to 8 doses of NTG SL in the ambulance along with BiPAP, but patient says none of that made him feel better
until he arrived in the ER and was started on Nitro gtt. Patient reports he feels symptomatically improved, but nowhere near baseline and says that he is willing to stay in the hospital to receive the care he needs.
-Back in atrial fibrillation today. He is now on IV heparin and will eventually start novel anticoagulant after dialysis access gets settled. Continue Coreg 25 mg p.o. twice daily. Will stop nifedipine and add diltiazem for better rate control.
Would eventually consider trying to restore sinus rhythm once he is initiated on dialysis.
-Abnormal troponin of 0.8. No acute ischemic changes on ECG. Will manage as a nonischemic myocardial injury Troponin elevation due to HTN emergency and flash pulmonary edema for now.
-Patient is high risk for cath given CKD 4 and not yet being committed to HD.
-Plan is for dialysis catheter to be placed today and to proceed with hemodialysis.
-Outpatient dose of Coreg 25 mg BID has been continued
-Cont hydralazine 50 mg BID
-Outpatient dose of losartan 100 mg daily is on hold due to LIA
-Wean nitroglycerin
-Patient reports he is no longer taking Mounjaro, he says Dr. Barton stopped Mounjaro because HgbA1c was 5%
Progress Note - Laborer Shipyard
Subjective
Date of Service: May 19, 2024
Went into A-fib overnight. Denies chest pains or palpitations. Breathing is stable.
Objective
Labs:
Labs
Hgb 8.4 g/dL (13.0-18.0) L 05/18/24 21:41
Hct 25.5 % (39.0-52.0) L 05/18/24 21:41
Plt Count 159 10^3/uL (130-400) 05/18/24 21:41
PT 16.2 Sec (11.4-14.6) H 05/18/24 10:38
INR 1.27 05/18/24 10:38
APTT 34.4 Sec (23.4-35.0) 05/19/24 01:10
Sodium Cancelled 05/19/24 06:00
Potassium Cancelled 05/19/24 06:00
BUN Cancelled 05/19/24 06:00
Creatinine Cancelled 05/19/24 06:00
Glucose Cancelled 05/19/24 06:00
Troponins
05/17/24 05/17/24 05/17/24
10:34 11:03 17:49
Troponin I Cancelled 0.083 H* 0.863 H* D
05/17/24 05/18/24
23:14 04:08
Troponin I 0.938 H* 0.874 H*
Vital Signs and I&O:
Vital Signs
Temp Pulse Resp BP Pulse Ox
97.9 F 97 0 142/68 95
05/19/24 07:53 05/19/24 07:30 05/19/24 01:09 05/19/24 07:30 05/19/24 06:00
Vital Signs
Temp Pulse Resp BP Pulse Ox
97.9 F 97 0 142/68 95
05/19/24 07:53 05/19/24 07:30 05/19/24 01:09 05/19/24 07:30 05/19/24 06:00
Intake & Output
05/17/24 05/18/24 05/19/24 05/20/24
06:59 06:59 06:59 06:59
Intake Total 960 / 960
Output Total 1900 / 1900 1150 / 1150
Balance -940 / -940 -1150 / -1150
Physical Exam
Physical Exam
GEN: No distress, awake, Ox3
HEENT: supple, anicteric, mmm
LUNGS: CTA, no wheezes/rales
CV: irreg, S1/S2, 1/6 syst LSB, no gallop
ABD: soft, BS+, NT/ND
EXT: No edema
NEURO: Gross non-focal
SKIN: No rash
--- NOTE | 2024-05-19 09:00 | PTCARENOTE ---
Patient received from shift production associate. No`events noted overnight until shift change. Currently NPO awaiting HD Cath and start of HD. No complaints of pain at this time. On 2L N/C HS, will wean to Room Air. Call menjivar in reach.
[2024-05-19 09:18] LABS: Hematocrit 25.1 % (39.0-52.0); Hemoglobin 8.2 g/dL (13.0-18.0); Mean Corp Hgb Conc. 32.7 g/dL (33.0-37.0); Mean Corpuscular Hgb 31.2 pg (27.0-31.0); Mean Corpuscular Volume 95.4 fL (80.0-94.0); Mean Platelet Volume 10.8 fL (7.4-10.4); Platelet Count 152 10^3/uL (130-400); Red Blood Cell Count 2.63 10^6/uL (4.70-6.10); Red Cell Dist. Width 14.5 % (11.5-14.5); White Blood Cell Count 7.3 10^3/uL (4.8-10.8)
[2024-05-19] MEDS: LASIX 80 MG IV ×2 (09:22→16:03)
[2024-05-19] MEDS: HEPARIN 25000 UNITS/250 ML IV (09:52)
[2024-05-19] MEDS: CARDIZEM CD 120 MG PO (09:57)
--- NOTE | 2024-05-19 09:58 | W.PN.HOSP.TC ---
Today's Communication/Plan
-
see plan
Assessment / Plan
Assessment / Plan
Gen: NAD, AAOx3.
Eyes: EOMI, PERRLA, no scleral icterus.
Neck: supple.
CV: irreg/irreg, +S1/S2, no m/r/g.
Resp: CTAB, no rales, wheezes, or rhonchi.
Abd: +BS, soft, NT, ND
Skin: No rashes. 4+ B/L LE edema
Neuro: CN 2-12 intact, non-focal.
Psych: Normal mood and affect.
Acute hypoxemic respiratory failure due to acute flash pulmonary edema/acute on chronic HFpEF due to HTN emergency:
-was on NTG gtt, now off as of 25PM
-echo 04/23/24 EF 50-55%
-proBNP 24,200
-cont IV lasix, daily wts, I/Os
-was on BIPAP, now weaned to RA
-cards following
-elevated trop is acute nonischemic myocardial injury
-Multidrug-resistant essential hypertension, continue Coreg/hydralazine/Cardizem
PAF:
-not chronically anticoagulated due to inability to safely dose anticoagulation due to prior acute kidney injury
-currently on heparin gtt
-cont Coreg
-start Cardizem CD 120mg daily
LIA on CKD4:
-HD cath to be placed to initiate HD
Other problems:
Chronic macrocytic anemia: Hb stable, B12/folate normal, Fe studies unremarkable
DM2: a1c 5.2%, SSI/accuchecks
Obesity due to excess calories
FULL/Heparin gtt
Total time spent on today's encounter was 50 minutes which included time spent in counseling the patient/family regarding diagnosis and treatment plan as listed above, goals of care, and symptom management. Case was discussed with nursing staff,
specialists, and care coordinators/case management. All labs and imaging personally reviewed by me. Remainder the time spent in detailed review of previous records, lab data, imaging, and other medical provider documentation.
Anticipated Discharge: > 48 hours
Subjective/Interval History
-
Date of Service: May 19, 2024
Currently denies chest pain or shortness of breath.
Objective Data
-
Labs:
Laboratory Results
05/18/24 05/19/24 05/19/24
21:40 01:10 06:00
WBC
Hgb
Hct
Plt Count
APTT 34.4
Sodium 138 Cancelled
Potassium 3.8 Cancelled
Chloride 110 H Cancelled
Carbon Dioxide 21 L Cancelled
BUN 63 H Cancelled
Creatinine 4.6 H* Cancelled
Glucose 114 H Cancelled
Calcium 8.4 Cancelled
05/19/24 05/19/24 05/19/24
07:00 09:06 16:00
WBC 7.3
Hgb 8.2 L
Hct 25.1 L
Plt Count 152
APTT 61.0 H Pending
Sodium Pending
Potassium Pending
Chloride Pending
Carbon Dioxide Pending
BUN Pending
Creatinine Pending
Glucose Pending
Calcium Pending
Vital Signs:
Vital Signs
Temp Pulse Resp BP Pulse Ox
97.9 F 63 0 127/66 95
05/19/24 07:53 05/19/24 09:22 05/19/24 01:09 05/19/24 09:22 05/19/24 09:40
I&O
05/18/24 05/19/24 05/20/24
06:59 06:59 06:59
Intake Total 960 / 960
Output Total 1900 / 1900 1150 / 1150
Balance -940 / -940 -1150 / -1150
[2024-05-19 12:12] LABS: Glucose - Point of Care 148 mg/dl (70-99)
[2024-05-19 14:29] LABS: Transferrin 126 mg/dL (200-360)
[2024-05-19 16:50] LABS: APTT 97.6 Sec (23.4-35.0)
--- NOTE | 2024-05-19 17:12 | CM ---
US renal artery today. Plan new HD once HD catheter placed.
Spoke with [place], [place] [phone]; patient is financially cleared. Need hepatitis labs, Dialysis Admission Checklist, Dialysis access info and HD flow sheets for medical clearance.
Met with patient and his son; provided HD Schedule Letter confirming [facility] MWF 11:10am. Patient ok with schedule and will make it work with his work schedule.
Plan fax hepatitis labs, Dialysis Admission Checklist, [facility] access [facility] and [facility], for medical clearance.
Plan home with [facility].
--- NOTE | 2024-05-19 17:47 | W.PN.NEPH.PH ---
Addendum entered and electronically signed by Kathy Mcgarry MD 05/20/24 22:23:
for CDI
LIA present on admit
Original Note:
Today's Communication / Plan
-
HD tomorrow once catheter in place
Assessment/Plan
-
Impression:
Hypertension
Heart failure reduced ejection fraction decompensated
Acute on chronic kidney disease
Chronic kidney disease stage IV
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
Hyperlipidemia
Edema
Anemia
Proteinuria
Plan:
ARB will be held in the setting of acute kidney
LIA worsening creatinine 4.6, no labs today
weights wildly inaccurate
bp stable on Hydralazine , carvedilol 25 mg twice daily, off nitroglycerin drip
procardia changed to cardizem for afib pe rcards
May consider use of clonidine if blood pressure remains uncontrolled
Echocardiogram reviewed shows normal EF with no regional wall motion abnormalities severely dilated left atrium mild to moderate tricuspid regurgitation pulmonary pressure 51 small pericardial effusion
Maintain Lasix 80 mg IV twice daily for volume overload and uncontrolled hypertension in the setting of worsening renal failure
Zaroxolyn may be added if necessary
Additional serologic workup will be performed for his proteinuria, PEP previously were negative
24-hour urine shows 17gm of proteinuria
Will need strict diet control
Renal duplex for uncontrolled HTN
Patient at high clinical risk with worsening renal failure and uncontrolled hypertension requiring IV diuretics and aggressive antihypertensive therapy
Long detailed discussion with the patient we will proceed forth with preparation for hemodialysis on 05/[address] Farrell
awaiting HD catheter placement and HD tomorrow
-
-
Date of Service: May 19, 2024
CC / HPI / ROS
-
Chief Complaint:
LIA
Hypertensive emergency
History of Present Illness:
Blood pressure stabilized on nitroglycerin drip and multiple oral antihypertensives
Acute kidney injury worsening with creatinine up to 4.6
no labs today
Review of Systems:
Less short of breath no reported chest pain
Nonoliguric
Weights not even close
Labs
-
Labs:
WBC 7.3 10^3/uL (4.8-10.8) 05/19/24 09:06
RBC 2.63 10^6/uL (4.70-6.10) L 05/19/24 09:06
Hgb 8.2 g/dL (13.0-18.0) L 05/19/24 09:06
Hct 25.1 % (39.0-52.0) L 05/19/24 09:06
Plt Count 152 10^3/uL (130-400) 05/19/24 09:06
eGFR Cancelled 05/19/24 06:00
Mvs-B-Ynmagbxeeen Pept 39275 pg/ml 05/17/24 11:03
Albumin 2.3 g/dl (3.5-5.0) L 05/18/24 04:08
Physical Exam
-
Vital Signs:
Vital Signs
Temp Pulse Resp BP Pulse Ox
98.0 F 59 28 136/62 96
05/19/24 15:54 05/19/24 16:03 05/19/24 12:30 05/19/24 16:03 05/19/24 12:30
Cardiovascular:: Regular rate and rhythm
Respiratory:: Bilateral: Coarse (Fine crackles at bases)
Lung Excursion:: Normal
Abdomen:: Nontender and Soft
Bowel Sounds:: Normal
Extremity Edema:: +3: Bilateral:
Gomez Catheter: No
[2024-05-19 17:59] LABS: Glucose - Point of Care 136 mg/dl (70-99)
[2024-05-19] MEDS: ANCEF 10 IV (18:44)
[2024-05-19] MEDS: LIPITOR 20 MG PO (20:33)
[2024-05-19 21:53] LABS: ANA, IgG Reflex to HEp-2 None Detected (None Detected)
[2024-05-19 22:05] LABS: Glucose - Point of Care 220 mg/dl (70-99)
[2024-05-19 22:53] LABS: APTT 142.5 Sec (23.4-35.0)
[2024-05-19 23:10] LABS: Blood Urea Nitrogen 69 mg/dl (9-20); Calcium 8.1 mg/dl (8.4-10.2); Carbon Dioxide 20 mmol/L (22-30); Chloride 108 mmol/L (98-107); Estimated Creatinine Clearance 19 ml/min; Glucose 209 mg/dl (70-99); Phosphorus 5.1 mg/dl (2.5-4.5); Sodium 137 mmol/L (135-145); eGFR 11.96
--- NOTE | 2024-05-19 23:50 | PTCARENOTE ---
Received report from Tiffanie in IR. Pt brought up in bed at 20:20. R tunnelled HD cath in place. Dressing intact, no drainage. No bruising around site. No c/o pain. VSS. Pt AAOx3, able to make needs known. Chol lowering 2200 alfa diabetic diet 1200FR
resumed.
[2024-05-20] VITALS (34 sets, daily range): BP systolic 101–156; BP diastolic 46–111; BMI 36.1
[2024-05-20] MEDS: HEPARIN 25000 UNITS/250 ML IV ×2 (02:37→19:55)
[2024-05-20] MEDS: TYLENOL 650 MG PO (02:37)
[2024-05-20 05:55] LABS: Hematocrit 22.4 % (39.0-52.0); Hemoglobin 7.4 g/dL (13.0-18.0); Mean Corpuscular Hgb 31.8 pg (27.0-31.0); Mean Corpuscular Volume 96.1 fL (80.0-94.0); Platelet Count 141 10^3/uL (130-400); Red Blood Cell Count 2.33 10^6/uL (4.70-6.10); Red Cell Dist. Width 14.5 % (11.5-14.5); White Blood Cell Count 7.1 10^3/uL (4.8-10.8)
[2024-05-20 06:11] LABS: APTT 74.1 Sec (23.4-35.0)
[2024-05-20 06:40] LABS: Blood Urea Nitrogen 68 mg/dl (9-20); Calcium 7.9 mg/dl (8.4-10.2); Carbon Dioxide 18 mmol/L (22-30); Chloride 110 mmol/L (98-107); Estimated Creatinine Clearance 19 ml/min; Glucose 116 mg/dl (70-99); Potassium 4.1 mmol/L (3.5-5.1); Sodium 139 mmol/L (135-145); eGFR 11.68
--- NOTE | 2024-05-20 07:21 | W.PN.HOSP.TC ---
Today's Communication/Plan
-
Patient to get catheter placed for hemodialysis today.
Assessment / Plan
Assessment / Plan
Assessment:
69 year old with PMH for CHF, atrial fib, and CHF presented to the hospital with sudden onset of shortness of breath while he was at work. He was diagnosed with respiratory failure due to acute flash pulmonary edema and started on diuresis therapy.
Patient's kidney function has worsened and is now scheduled for hemodialysis treatment starting today.
Plan:
#Acute hypoxemic respiratory failure due to acute flash pulmonary edema/acute on chronic HFpEF due to HTN emergency:
-was on NTG gtt, now off as of 05/18/24PM
-echo 04/23/24 EF 50-55%
-proBNP 24,200
-cont IV lasix 80mg BID, daily wts, I/Os
-was on BIPAP, now weaned to RA
-cardiology input appreciated
-elevated trop most likely due to acute nonischemic myocardial injury
-will need eventual ischemic evaluation
#Multidrug-resistant essential hypertension
-Stopped nifedipine
-continue Coreg/hydralazine (50mg TID)/Cardizem (120mg)
#Paroxysmal Atrial Fibrillation:
-not chronically anticoagulated due to prior acute kidney injury
-currently on heparin gtt, will start novel anticoagulant after dialysis access today
-cont Coreg, cont Aspirin
-start Cardizem CD 120mg daily
#LIA on CKD4:
-HD cath to be placed to initiate HD today
Other problems:
Chronic macrocytic anemia: Hb stable, B12/folate normal, Fe studies unremarkable
DM2: a1c 5.2%, SSI/accuchecks
Obesity due to excess calories
FULL Code
DVT Prophylaxis: Heparin gtt
Anticipated Discharge: > 48 hours
Subjective/Interval History
-
Date of Service: May 20, 2024
Patient has been feeling well. Reports his shortness of breath is much better since has been admitted. Was in high spirits about starting hemodialysis today.
Objective Data
-
Labs:
Laboratory Results
05/19/24 05/20/24 05/20/24
22:16 05:37 12:15
WBC 7.1
Hgb 7.4 L
Hct 22.4 L
Plt Count 141
APTT 142.5 H 74.1 H Pending
Sodium 137 139
Potassium 4.0 4.1
Chloride 108 H 110 H
Carbon Dioxide 20 L 18 L
BUN 69 H 68 H
Creatinine 5.0 H* 5.1 H*
Glucose 209 H 116 H
Calcium 8.1 L 7.9 L
Vital Signs:
Vital Signs
Temp Pulse Resp BP Pulse Ox
97.7 F 61 17 131/57 96
05/19/24 23:33 05/20/24 06:00 05/20/24 06:00 05/20/24 06:00 05/20/24 06:00
I&O
05/19/24 05/20/24 05/21/24
06:59 06:59 06:59
Intake Total 1350 / 1350
Output Total 1150 / 1150
Balance -1150 / -1150 1350 / 1350
Review of Systems
-
History Source: Patient
Constitutional: Denies No Appetite, Fatigue or Sleep Disturbance
EENT: Reports No Symptoms Reported
Respiratory: Denies Cough, Trouble Breathing or Wheezing
Cardiac: Denies Chest Pain, Diaphoresis, Palpitations or Syncope
Abdomen/GI: Denies Abdominal Pain, Nausea or Vomiting
Genitourinary: Reports No Symptoms
Musculoskeletal: Reports No Symptoms
Skin: Reports No Symptoms
Neuro: Denies No Symptoms
Endocrine: Denies No Symptoms
Hematologic / Lymphatic: Denies No Symptoms
Allergy / Immunology: Denies No Symptoms
Physical Exam
-
General: Well Developed, No Apparent Distress and Comfortable
HEENT: Normocephalic, Atraumatic and Moist Mucous Membranes
Respiratory: Clear to Auscultation and Non Labored Respirations
Cardiac: Regular Rhythm and S1/S2
GI: Soft, Nontender, Nondistended and Normal Bowel Sounds
Musculoskeletal: No Clubbing, No Cyanosis and No Edema
Skin: Warm and Dry
Neuro: Awake, Alert, Oriented, AO x 3 and No Motor Deficits
Psych: Calm and Intact Judgement/Insight
Data Reviewed
-
Labs: Labs Reviewed by me, Discussed with Physician and Discussed with Patient
[2024-05-20 08:12] LABS: Glucose - Point of Care 127 mg/dl (70-99)
[2024-05-20 08:45] LABS: Myeloperoxidase Antibody 0 AU/mL (0-19); Serine Protease-3, IgG 0 AU/mL (0-19)
--- NOTE | 2024-05-20 09:49 | PTCARENOTE ---
Pt having first HD treatment today. AM meds to be given when completed.
[2024-05-20] MEDS: FLEXBUMIN 25% FOR HEMODIALYSIS 12.5 GRAMS IV ×2 (10:20→11:26)
[2024-05-20] MEDS: MANNITOL 25% 12.5 GRAMS IV ×2 (10:20→11:26)
--- NOTE | 2024-05-20 11:10 | W.PN.CARDCBS ---
Today's Communication / Plan
-
Continue heparin
Switch to DOAC in a.m.
Consider ischemic eval, could be considered as outpatient as well
Impression / Plan
-
PCP: Dr. Misbah Barton
Primary Merchandising Representative: Dr. Crane ( follows with Dr Maldonado)
Impression:
Admitted with flash pulmonary edema 05/17/24
Recent admission for LIA and acute HF during which patient left AMA 04/22/24 until 04/26/24
Acute on chronic HFpEF
Acute on chronic LE edema
LIA on CKD 4
Hypertensive emergency
Multidrug resistant hypertension
Elevated troponin
Paroxysmal atrial fibrillation
newly diagnosed 04/2024
Not chronically anticoagulated due to inability to safely dose OAC in the setting of LIA
Anemia of chronic disease
Hypoalbuminemia
DM2
Diabetic nephropathy
Proteinuria
HLD
Obesity, previously on Mounjaro
ECHO 04/23/24: EF 50 to 55%, mild concentric LVH, aortic sclerosis, mild TR, PAP 51 mmHg, small pericardial effusion without evidence of hemodynamic compromise, pleural effusion present
Plan:
He is back in sinus rhythm as of 8:00 this morning, and heart rate looks good. I am hopeful that with dialysis atrial fibrillation will be controlled. Will stop diltiazem. If needed we can reinstitute.
Continue heparin for now and if no objections from nephrology or hospitalist will switch to DOAC in a.m. Hemoglobin is 7.4 so may be necessary to discontinue anticoagulation if hemoglobin continues to drop. Proper dose of Eliquis will be 5 mg
twice daily.
Troponin was 0.8. Now that he is on hemodialysis we will need to consider whether or not to recommend cardiac catheterization. Although his pulmonary edema was abrupt in onset it does not necessarily reflect global ischemia and in fact if that
were the case I would expect troponin to be higher.
We will continue to follow.
Progress Note - Merchandising Representative
Subjective
Date of Service: May 20, 2024:
Currently on hemodialysis, no complaints
151/68, pulse 60, respiratory 21, afebrile, weight is 120.6 kg, At admission weight was 123.2 kg head neck exam unremarkable, lungs relatively clear, regular rate and rhythm, abdomen benign, still with 4+ edema, neck veins okay
EKG: Atrial fibrillation with rapid ventricular response, septal UT, nonspecific ST and T changes, A-fib is new compared to May 17
Hemoglobin 7.4, platelets 141, creatinine 5.1
Objective
Labs:
05/20/24 05:37
05/20/24 05:37
Labs
Hgb 7.4 g/dL (13.0-18.0) L 05/20/24 05:37
Hct 22.4 % (39.0-52.0) L 05/20/24 05:37
Plt Count 141 10^3/uL (130-400) 05/20/24 05:37
PT 16.2 Sec (11.4-14.6) H 05/18/24 10:38
INR 1.27 05/18/24 10:38
APTT 74.1 Sec (23.4-35.0) H 05/20/24 05:37
Sodium 139 mmol/L (135-145) 05/20/24 05:37
Potassium 4.1 mmol/L (3.5-5.1) 05/20/24 05:37
BUN 68 mg/dl (9-20) H 05/20/24 05:37
Creatinine 5.1 mg/dL (0.7-1.3) H* 05/20/24 05:37
Glucose 116 mg/dl (70-99) H 05/20/24 05:37
Troponins
05/17/24 05/17/24 05/17/24
11:03 17:49 23:14
Troponin I 0.083 H* 0.863 H* D 0.938 H*
05/18/24
04:08
Troponin I 0.874 H*
Vital Signs and I&O:
Vital Signs
Temp Pulse Resp BP Pulse Ox
36.4 C 60 21 151/68 96
05/20/24 07:30 05/20/24 10:00 05/20/24 10:00 05/20/24 10:00 05/20/24 10:00
Vital Signs
Temp Pulse Resp BP Pulse Ox
36.4 C 60 21 151/68 96
05/20/24 07:30 05/20/24 10:00 05/20/24 10:00 05/20/24 10:00 05/20/24 10:00
Intake & Output
05/18/24 05/19/24 05/20/24 05/21/24
07:59 07:59 07:59 07:59
Intake Total 960 / 960 1350 / 1350
Output Total 1900 / 1900 1150 / 1150
Balance -940 / -940 -1150 / -1150 1350 / 1350
Physical Exam
Physical Exam
See above
--- NOTE | 2024-05-20 11:10 | W.PN.NEPH.HD ---
Assessment
-
pt seen during HD
vitals stable
UF as tolerated
Tunneled catheter functions well
next HD tomorrow
likely consolidate BP meds soon
Accepted to [facility] HD unit
Progress Note - Hemodialysis
-
Date of Service: May 20, 2024
Duration: 15 minutes and 2 hours
Potassium Bath: 3
Calcium Bath: 2.5
Opti-Dialyzer: 160
Ultrafiltration: Other (1.5kg)
Blood Flow: 200
Dialysate Flow: 600
Heparin: no
EPO: [id number]
[2024-05-20] MEDS: RETACRIT 10000 UNITS IV (11:27)
--- NOTE | 2024-05-20 11:35 | CM ---
Patient seen at bedside, no needs expressed. Patient on HD CM will continue to follow for discharge planning needs.
PLan; home with family f/u with HD and will need follow documentation for HD
--- NOTE | 2024-05-20 12:22 | W.PN.UPDATE ---
Update Note
Progress Note Update
I saw and evaluated the patient. I reviewed the resident�s note and agree with findings and plan as documented in the resident�s note.
Denies CP/SOB
Gen: NAD, AAOx3.
Eyes: EOMI, PERRLA, no scleral icterus.
Neck: supple.
CV: RRR, +S1/S2, no m/r/g.
Resp: remains CTAB, no rales, wheezes, or rhonchi.
Abd: +BS, soft, NT, ND
Skin: No rashes. 3-4+ B/L LE edema
Neuro: CN 2-12 intact, non-focal.
Psych: Normal mood and affect.
Acute hypoxemic respiratory failure due to acute flash pulmonary edema/acute on chronic HFpEF due to HTN emergency:
-was on NTG gtt, now off as of 05/18/24PM
-echo 04/23/24 EF 50-55%
-proBNP 24,200
-cont IV lasix and volume removal via HD
-daily wts, I/Os
-was on BIPAP, now weaned to RA
-cards following
-elevated trop is acute nonischemic myocardial injury
-h/o Multidrug-resistant essential hypertension, continue Coreg/hydralazine
PAF:
-not chronically anticoagulated due to inability to safely dose anticoagulation due to prior acute kidney injury
-currently on heparin gtt
-cont Coreg
LIA on CKD4:
-HD cath placed 05/19/24 and HD initiated 05/20/24
Other problems:
Chronic macrocytic anemia: B12/folate normal, Fe studies unremarkable. Suspect anemia of chronic renal disease. Trend Hb, transfuse for Hb < 7.
DM2: a1c 5.2%, SSI/accuchecks
Obesity due to excess calories
FULL/Heparin gtt
Total time spent on today's encounter was 51 minutes which included time spent in counseling the patient/family regarding diagnosis and treatment plan as listed above, goals of care, and symptom management. Case was discussed with nursing staff,
specialists, and care coordinators/case management. All labs and imaging personally reviewed by me. Remainder the time spent in detailed review of previous records, lab data, imaging, and other medical provider documentation.
[2024-05-20 12:26] LABS: Glucose - Point of Care 134 mg/dl (70-99)
[2024-05-20 12:49] LABS: APTT 55.3 Sec (23.4-35.0)
[2024-05-20] MEDS: LOW STRENGTH ASPIRIN 81 MG PO (12:53)
[2024-05-20] MEDS: COREG 25 MG PO ×2 (12:53→19:51)
[2024-05-20] MEDS: APRESOLINE 50 MG PO ×2 (12:53→21:01)
[2024-05-20] MEDS: LASIX 80 MG IV (12:53)
[2024-05-20] MEDS: CARDIZEM CD PO (13:06)
[2024-05-20] MEDS: LASIX IV (15:38)
[2024-05-20] MEDS: APRESOLINE PO (15:38)
--- NOTE | 2024-05-20 16:58 | PN.CDI ---
CDI
- -
CDI:
Physician Documentation Request
Admit Date: 05/17/24 13:27
Dear Doctor Malgorzata,
Please review the following and provide your response in the progress notes.
Clinical Indicators:
Pt admitted with Acute on Chronic diastolic CHF /CKD 4 /HTN Emergency
Documented per update note 05/17 to H&P, ' Stable CKD - baseline Cr mid 4s, baseline eGFR mid 10s ...'
Nephrology consult, ' Chief Complaint: Acute kidney injury/hypertensive emergency...He has known chronic kidney disease with a creatinine which has been slowly rising over time. With his last admission his creatinine was around 3.0. ...At the time
of admission he was noted to have a creatinine of 4.4 though this is improved from his discharge creatinine of 4.9 but both values are still elevated with respect to his chronic kidney disease and bilingual sales representative of acute kidney injury.....'
Documented per past visit 04/23/24 nephrology consult, ' Chronic kidney disease stage IV with baseline creatinine of 3...'
Please clarify the following:
_AKI__ was present on admission
_AKI__ was not present on admission
Other ( please specify)
Use of terms such as suspected, likely, concern for, or probable (associated with a specific diagnosis that is being evaluated, monitored, or treated as if it exists) are acceptable and can be coded in the inpatient setting, when documented at the
time of discharge.
Thank you,
Maris Sanchez RN
CDI Specialist
[place] [facility]
Please use your independent medical judgment in providing your response.
[2024-05-20 17:43] LABS: Glucose - Point of Care 120 mg/dl (70-99)
[2024-05-20 19:52] LABS: Hepatitis B Surface Antigen Negative (Negative)
[2024-05-20 20:10] LABS: Hepatitis B Surface Antibody Negative
[2024-05-20 20:11] LABS: Hepatitis B Core Ab, Total Negative (Negative)
[2024-05-20 20:14] LABS: APTT 38.6 Sec (23.4-35.0)
[2024-05-20] MEDS: LIPITOR 20 MG PO (21:01)
[2024-05-20 22:09] LABS: Glucose - Point of Care 121 mg/dl (70-99)
[2024-05-21] VITALS (33 sets, daily range): BP systolic 127–191; BP diastolic 47–104; BMI 35.5
[2024-05-21] MEDS: OCEAN, SALINE MIST 2 SPRAYS NASAL (01:06)
--- NOTE | 2024-05-21 03:30 | PTCARENOTE ---
Received pt at change of shift. Assessment as documented. Pts IV in Left AC was leaking and left FA was infiltrated. VAT called. New IV placed in left hand. Hep gtt running at 1600 u/hr.
[2024-05-21 04:09] LABS: Hematocrit 23.4 % (39.0-52.0); Hemoglobin 7.7 g/dL (13.0-18.0); Mean Corp Hgb Conc. 32.9 g/dL (33.0-37.0); Mean Corpuscular Hgb 31.4 pg (27.0-31.0); Mean Corpuscular Volume 95.5 fL (80.0-94.0); Mean Platelet Volume 11.2 fL (7.4-10.4); Platelet Count 153 10^3/uL (130-400); Red Blood Cell Count 2.45 10^6/uL (4.70-6.10); Red Cell Dist. Width 14.5 % (11.5-14.5); White Blood Cell Count 6.7 10^3/uL (4.8-10.8)
[2024-05-21 04:21] LABS: APTT 92.8 Sec (23.4-35.0)
[2024-05-21] MEDS: LOW STRENGTH ASPIRIN 81 MG PO (08:17)
[2024-05-21] MEDS: LASIX 80 MG IV ×2 (08:17→16:57)
[2024-05-21] MEDS: COREG 25 MG PO ×2 (08:18→20:17)
[2024-05-21] MEDS: APRESOLINE 50 MG PO (08:18)
--- NOTE | 2024-05-21 08:41 | PTCARENOTE ---
Pt reports feeling very SOB, states he feels 'nearly as bad as when I came in.' BP elevated, sats in the mid 90's. Morning meds administered, see MAR. Dr. Lyman and Dr. Trujillo notified. Immediately after, pt rang call menjivar stating he feels worse. Sats
remain in the mid 90's, but pt visibly tachypneic. NRB placed for comfort. Pt reports feeling improved with O2. Orders being placed by provider.
[2024-05-21] MEDS: APRESOLINE 10 MG IV (08:47)
--- NOTE | 2024-05-21 08:50 | W.PN.UPDATE ---
Update Note
Progress Note Update
I saw and evaluated the patient. I reviewed the resident�s note and agree with findings and plan as documented in the resident�s note.
SOB this AM requiring NRB. Now on 6L via ventimask.
Gen: remains NAD, AAOx3.
Eyes: EOMI, PERRLA, no scleral icterus.
Neck: supple.
CV: RRR with occasional premature beats, +S1/S2, no m/r/g.
Resp: continues to remain CTAB, no rales, wheezes, or rhonchi.
Abd: +BS, soft, NT, ND
Skin: No rashes. 4+ B/L LE edema
Neuro: CN 2-12 intact, non-focal.
Psych: Normal mood and affect.
Acute hypoxemic respiratory failure due to acute flash pulmonary edema/acute on chronic HFpEF due to HTN emergency:
-was on NTG gtt, now off as of 05/18/24PM
-echo 04/23/24 EF 50-55%
-proBNP 24,200
-cont IV lasix and volume removal via HD
-daily wts, I/Os
-cards following
-elevated trop is acute nonischemic myocardial injury
-h/o Multidrug-resistant essential hypertension, continue Coreg/hydralazine
-was on BIPAP, then weaned to RA. This AM pt placed on NRB due to SOB/hypoxemia. SBP was 191. Received 10mg IV Hydralazine, now SBP 150s on pt on 6L via ventimask, symptomatically improved.
PAF:
-not chronically anticoagulated due to inability to safely dose anticoagulation due to prior acute kidney injury
-currently on heparin gtt
-cont Coreg
LIA on CKD4:
-HD cath placed 05/19/24 and HD initiated 05/20/24
-discussed with renal pt have HD earlier in the day today
Other problems:
Chronic macrocytic anemia: B12/folate normal, Fe studies unremarkable. Suspect anemia of chronic renal disease. Trend Hb, transfuse for Hb < 7.
DM2: a1c 5.2%, SSI/accuchecks
Obesity due to excess calories
FULL/Heparin gtt
Total time spent on today's encounter was 58 minutes which included time spent in counseling the patient/family regarding diagnosis and treatment plan as listed above, goals of care, and symptom management. Case was discussed with nursing staff,
specialists, and care coordinators/case management. All labs and imaging personally reviewed by me. Remainder the time spent in detailed review of previous records, lab data, imaging, and other medical provider documentation.
--- NOTE | 2024-05-21 09:01 | W.PN.HOSP.TC ---
Today's Communication/Plan
-
Continue to monitor for any changes in breathing. Continue monitoring blood pressure as well. Hemodialysis later today.
Assessment / Plan
Assessment / Plan
Assessment:
69 year old with PMH for CHF, atrial fib, and CHF presented to the hospital with sudden onset of shortness of breath while he was at work. He was diagnosed with respiratory failure due to acute flash pulmonary edema and started on diuresis therapy.
Patient has started his hemodialysis treatment for his worsening kidney function.
Plan:
#Acute hypoxemic respiratory failure due to acute flash pulmonary edema/acute on chronic HFpEF due to HTN emergency:
-was on NTG gtt, now off as of 05/18/24PM
-echo 04/23/24 EF 50-55%
-proBNP 24,200
-cont IV lasix 80mg BID, daily wts, I/Os
-cardiology input appreciated
-elevated trop most likely due to acute nonischemic myocardial injury
-will need eventual outpatient ischemic evaluation
-was on BIPAP, now weaned to RA -> had to be put on non-rebreather today due to trouble breathing
-Given Hydralazine due to increased BP, may have to restart NTG gtt if pressure continues to stay elevated
-CXR done urgently
#Multidrug-resistant essential hypertension
-Stopped nifedipine
-continue Coreg/hydralazine (50mg TID)/Cardizem (120mg)
#Paroxysmal Atrial Fibrillation:
-not chronically anticoagulated due to prior acute kidney injury
-currently on heparin gtt, will start novel anticoagulant after dialysis access today
-cont Coreg, cont Aspirin
-start Cardizem CD 120mg daily
-Plan is to start DOAC today
#LIA on CKD4:
-Continued HD treatment
Other problems:
Chronic macrocytic anemia: Hb stable, B12/folate normal, Fe studies unremarkable
DM2: a1c 5.2%, SSI/accuchecks
Obesity due to excess calories
FULL Code
DVT Prophylaxis: Heparin gtt
Anticipated Discharge: 24 - 48 hours
Subjective/Interval History
-
Date of Service: May 21, 2024
Patient had been feeling well until he started having trouble breathing this morning. Patient had been weaned to room air but had to be put on a non-rebreather. His blood pressure also increased during this time and was given Hydralazine to help
bring it down. He is now feeling a bit better after treatment and is scheduled to go further hemodialysis later today.
Objective Data
-
Labs:
Laboratory Results
05/21/24 05/21/24 05/21/24
03:30 08:35 09:30
WBC 6.7
Hgb 7.7 L
Hct 23.4 L
Plt Count 153
APTT 92.8 H Pending
HCO3 Pending
Vital Signs:
Vital Signs
Temp Pulse Resp BP Pulse Ox
99.1 F 81 26 189/93 91
05/21/24 03:00 05/21/24 08:07 05/20/24 16:00 05/21/24 08:47 05/21/24 08:07
I&O
05/20/24 05/21/24 05/22/24
06:59 06:59 06:59
Intake Total 1350 / 1350 240 / 240
Balance 1350 / 1350 240 / 240
Review of Systems
-
History Source: Patient
Constitutional: Denies Fever, Sleep Disturbance, Chills or Weakness
EENT: Reports No Symptoms Reported
Respiratory: Reports Cough and Trouble Breathing
Cardiac: Denies Chest Pain or Palpitations
Abdomen/GI: Reports No Symptoms
Genitourinary: Reports No Symptoms
Musculoskeletal: Reports No Symptoms
Skin: Reports No Symptoms
Neuro: Reports No Symptoms
Endocrine: Reports No Symptoms
Hematologic / Lymphatic: Reports No Symptoms
Allergy / Immunology: Reports No Symptoms
Physical Exam
-
General: Well Developed, Respiratory Distress and Conversant
HEENT: Normocephalic and Atraumatic
Respiratory: Clear to Auscultation and Non Labored Respirations
Cardiac: Regular Rhythm and S1/S2
GI: Soft, Nontender and Nondistended
Musculoskeletal: No Clubbing, No Cyanosis and No Edema
Skin: Warm and Dry
Neuro: Awake, Alert, Oriented and AO x 3
Psych: Calm and Anxious
[2024-05-21] MEDS: HEPARIN 25000 UNITS/250 ML IV (09:14)
[2024-05-21 09:26] LABS: Glucose - Point of Care 156 mg/dl (70-99)
--- NOTE | 2024-05-21 10:10 | PTCARENOTE ---
Pt reports feeling improved. Back to RA with sats in mid 's.
[2024-05-21 10:41] LABS: APTT 92.2 Sec (23.4-35.0)
--- NOTE | 2024-05-21 10:45 | W.PN.CARDCBS ---
Today's Communication / Plan
-
Start Eliquis
Stop heparin
Impression / Plan
-
PCP: Dr. Misbah Barton
Primary Supervisor Tumblers: Dr. Crane ( follows with Dr Maldonado)
Impression:
Admitted with flash pulmonary edema 05/17/24
Recent admission for LIA and acute HF during which patient left AMA 04/22/24 until 04/26/24
Acute on chronic HFpEF
Acute on chronic LE edema
LIA on CKD 4
Hypertensive emergency
Multidrug resistant hypertension
Elevated troponin
Paroxysmal atrial fibrillation
newly diagnosed 04/2024
Not chronically anticoagulated due to inability to safely dose OAC in the setting of LIA
Anemia of chronic disease
Hypoalbuminemia
DM2
Diabetic nephropathy
Proteinuria
HLD
Obesity, previously on Mounjaro
ECHO 04/23/24: EF 50 to 55%, mild concentric LVH, aortic sclerosis, mild TR, PAP 51 mmHg, small pericardial effusion without evidence of hemodynamic compromise, pleural effusion present
Plan:
Overall he is doing relatively well from a cardiac standpoint.
His dyspnea is improved, currently on his second hemodialysis treatment.
He has not had recurrence of atrial fibrillation. He is on heparin, and we will start Eliquis.
Still with periods of significant hypertension, and nephrology has concerns regarding renal artery stenosis. For the present, we will continue with hemodialysis without further investigation at the moment but he may need an imaging study of his
renal arteries.
Will need to consider whether or not to proceed with ischemic evaluation. I think it would be preferable to wait until he is stabilized on hemodialysis and then consider sestamibi imaging, cardiac catheterization, etc.
He is now off diltiazem. He remains on carvedilol and hydralazine. Defer further blood pressure choices to nephrology.
Progress Note - Supervisor Tumblers
Subjective
Date of Service: May 21, 2024: 69-year-old man admitted with pulmonary edema on Ree 6, had been admitted in April with acute HFpEF and LIA, started on hemodialysis May 20, also with newly diagnosed paroxysmal atrial fibrillation
Currently on IV heparin, to begin DOAC.
PMH: As above, also diabetes, diabetic nephropathy, hypertension, hyperlipidemia, anemia of chronic disease
Current meds: Aspirin 81 mg a day, atorvastatin 20 mg a day, carvedilol 25 mg twice daily, furosemide 80 mg IV twice daily, hydralazine 50 mg p.o. 3 times daily, IV heparin
189/93, pulse 81, respiratory 26,, no distress, now with tunneled hemodialysis catheter, head neck exam unremarkable, diminished breath sounds in bases, regular rate and rhythm without murmurs abdomen benign still with extensive edema
Chest x-ray today: cardiomegaly, probably with vascular congestion
Hemoglobin 7.7, which is stable or slightly improved
Objective
Labs:
05/21/24 03:30
05/20/24 05:37
Labs
Hgb 7.7 g/dL (13.0-18.0) L 05/21/24 03:30
Hct 23.4 % (39.0-52.0) L 05/21/24 03:30
Plt Count 153 10^3/uL (130-400) 05/21/24 03:30
PT 16.2 Sec (11.4-14.6) H 05/18/24 10:38
INR 1.27 05/18/24 10:38
APTT 92.8 Sec (23.4-35.0) H 05/21/24 03:30
Sodium 139 mmol/L (135-145) 05/20/24 05:37
Potassium 4.1 mmol/L (3.5-5.1) 05/20/24 05:37
BUN 68 mg/dl (9-20) H 05/20/24 05:37
Creatinine 5.1 mg/dL (0.7-1.3) H* 05/20/24 05:37
Glucose 116 mg/dl (70-99) H 05/20/24 05:37
Vital Signs and I&O:
Vital Signs
Temp Pulse Resp BP Pulse Ox
37.3 C 81 26 189/93 100
05/21/24 03:00 05/21/24 08:07 05/20/24 16:00 05/21/24 08:47 05/21/24 09:26
Vital Signs
Temp Pulse Resp BP Pulse Ox
37.3 C 81 26 189/93 100
05/21/24 03:00 05/21/24 08:07 05/20/24 16:00 05/21/24 08:47 05/21/24 09:26
Intake & Output
05/19/24 05/20/24 05/21/24 05/22/24
07:59 07:59 07:59 07:59
Intake Total 1350 / 1350 240 / 240
Output Total 1150 / 1150
Balance -1150 / -1150 1350 / 1350 240 / 240
Physical Exam
Physical Exam
See above
--- NOTE | 2024-05-21 11:45 | CM ---
Addendum entered by Tigist Hurst RN 05/21/24 12:42:
Spoke with Chioma, [place] [facility] [place] [phone]; the patient is cleared medically (and financially cleared) to start outpatient dialysis and could start 05/24. Informed Chioma that patient had a respiratory setback and will likely need to wait to
start outpatient HD next 05/26 instead - she will let the clinic know.
Dr Farrell and Resident Ish Lyman informed that patient is cleared for outpatient HD.
Plan follow patient's respiratory status/any O2 needs for d/c.
Plan home with [facility].
Original Note:
Patient with new HD. Tunneled right IJ HD catheter placed 05/19. First HD 05/20. Hi flow O2. Receiving IV Lasix, Heparin gtt. CXR today. Per nurse assessment; A/O, ambulatory in room.
Spoke with Chioma, Assigned [facility] [place] [phone]; she received the fax of hepatitis labs, Dialysis Admission Checklist, Dialysis access info and HD flow sheet for medical clearance, sent via [employer] Fax. She will request update on medical clearance
for HD.
Plan follow patient's respiratory status/any O2 needs for d/c.
Plan home with [facility].
--- NOTE | 2024-05-21 11:46 | W.PN.NEPH.HD ---
Assessment
-
Patient seen on dialysis
Shortness of breath is dissipated with blood pressure drop
Will attempt higher UF today on dialysis and will also dialyze again tomorrow
Progress Note - Hemodialysis
-
Date of Service: May 21, 2024
Duration: 45 minutes and 2 hours
Potassium Bath: 3
Calcium Bath: 2.5
Opti-Dialyzer: 160
Ultrafiltration: Other (2 to 2.5 kg as hemodynamically tolerated)
Blood Flow: 250
Dialysate Flow: 600
Heparin: None
EPO: 8000
[2024-05-21 13:13] LABS: Glucose - Point of Care 114 mg/dl (70-99)
[2024-05-21] MEDS: MANNITOL 25% 12.5 GRAMS IV ×2 (13:40→13:45)
[2024-05-21] MEDS: RETACRIT 8000 UNITS IV (13:46)
[2024-05-21] MEDS: HEPARIN 4300 UNITS INTRACATH (14:51)
[2024-05-21 16:56] LABS: Glucose - Point of Care 138 mg/dl (70-99)
[2024-05-21] MEDS: APRESOLINE 100 MG PO ×2 (16:57→21:40)
[2024-05-21] MEDS: ELIQUIS 5 MG PO (20:17)
[2024-05-21] MEDS: LIPITOR 20 MG PO (20:18)
[2024-05-21 21:21] LABS: Glucose - Point of Care 137 mg/dl (70-99)
[2024-05-22] VITALS (24 sets, daily range): BP systolic 124–162; BP diastolic 56–96; BMI 33.9
--- NOTE | 2024-05-22 00:46 | PTCARENOTE ---
Pt AAOx3. Heparin gtt discontinued, administered PO Eliquis. 96% on room air, denies any SOB or difficulty breathing. Pt due to receive HD in the AM. Pt requests the door shut to get rest. Pt appears to be resting comfortably in bed, call menjivar is
within reach.
[2024-05-22 06:15] LABS: Hematocrit 23.8 % (39.0-52.0); Mean Corp Hgb Conc. 33.6 g/dL (33.0-37.0); Mean Corpuscular Hgb 32.1 pg (27.0-31.0); Mean Corpuscular Volume 95.6 fL (80.0-94.0); Mean Platelet Volume 10.9 fL (7.4-10.4); Platelet Count 148 10^3/uL (130-400); Red Blood Cell Count 2.49 10^6/uL (4.70-6.10); Red Cell Dist. Width 14.6 % (11.5-14.5); White Blood Cell Count 6.2 10^3/uL (4.8-10.8)
[2024-05-22 06:24] LABS: APTT 35.5 Sec (23.4-35.0)
[2024-05-22 08:00] LABS: Glucose - Point of Care 121 mg/dl (70-99)
--- NOTE | 2024-05-22 08:21 | W.PN.CARDCBS ---
Today's Communication / Plan
-
We will sign off please call with questions
Cardiac follow-up arranged
Current inpatient medical regimen appears stable, would not make any changes, defer to nephrology if changes are indicated
Impression / Plan
-
PCP: Dr. Misbah Barton
Primary Wreath Inspector: Dr. Crane ( follows with Dr Maldonado)
Impression:
Admitted with flash pulmonary edema 05/17/24
Recent admission for LIA and acute HF during which patient left AMA 04/22/24 until 04/26/24
Acute on chronic HFpEF
Acute on chronic LE edema
LIA on CKD 4
Hypertensive emergency
Multidrug resistant hypertension
Elevated troponin
Paroxysmal atrial fibrillation
newly diagnosed 04/2024
Not chronically anticoagulated due to inability to safely dose OAC in the setting of LIA
Anemia of chronic disease
Hypoalbuminemia
DM2
Diabetic nephropathy
Proteinuria
HLD
Obesity, previously on Mounjaro
ECHO 04/23/24: EF 50 to 55%, mild concentric LVH, aortic sclerosis, mild TR, PAP 51 mmHg, small pericardial effusion without evidence of hemodynamic compromise, pleural effusion present
Plan:
Doing well, BP now well-controlled, probably a reflection of volume removal troponin was 0.938, would favor a sestamibi scan or PET/CT as outpatient
Still volume overloaded, but improving day by day
Risk-benefit of aspirin plus Eliquis unclear with fairly high bleeding risk and suspicion that his troponin elevation is a non-ACS related myocardial injury stop aspirin
We will sign off, outpatient follow-up arranged. Probably for cardiac PET/CT as outpatient.
Progress Note - Wreath Inspector
Subjective
Date of Service: May 22, 2024:
69-year-old man admitted with pulmonary edema on May 17, had been admitted in April with acute HFpEF and LIA, started on hemodialysis May 20, also with newly diagnosed paroxysmal atrial fibrillation
PMH: As above, also diabetes, diabetic nephropathy, hypertension, hyperlipidemia, anemia of chronic disease
Current meds: Aspirin 81 mg a day, atorvastatin 20 mg at bedtime, carvedilol 25 mg twice daily, furosemide 80 mg IV twice daily, apixaban 5 mg a day, hydralazine 100 mg 3 times daily
148/73, pulse 74, respiratory 26, afebrile, sats 94%, weight is 113.3 kg, if accurate down 5.4 kg
Chest x-ray yesterday cardiomegaly, some vascular congestion
Hemoglobin 8, had been down to 7.4, BMP is pending
Telemetry: Sinus rhythm
Objective
Labs:
05/22/24 06:06
Labs
Hgb 8.0 g/dL (13.0-18.0) L 05/22/24 06:06
Hct 23.8 % (39.0-52.0) L 05/22/24 06:06
Plt Count 148 10^3/uL (130-400) 05/22/24 06:06
PT 16.2 Sec (11.4-14.6) H 05/18/24 10:38
INR 1.27 05/18/24 10:38
APTT 35.5 Sec (23.4-35.0) H 05/22/24 06:06
Sodium 139 mmol/L (135-145) 05/20/24 05:37
Potassium 4.1 mmol/L (3.5-5.1) 05/20/24 05:37
BUN 68 mg/dl (9-20) H 05/20/24 05:37
Creatinine 5.1 mg/dL (0.7-1.3) H* 05/20/24 05:37
Glucose 116 mg/dl (70-99) H 05/20/24 05:37
Vital Signs and I&O:
Vital Signs
Temp Pulse Resp BP Pulse Ox
36.5 C 74 26 148/73 94
05/22/24 03:52 05/22/24 06:25 05/20/24 16:00 05/22/24 06:25 05/22/24 06:25
Vital Signs
Temp Pulse Resp BP Pulse Ox
36.5 C 74 26 148/73 94
05/22/24 03:52 05/22/24 06:25 05/20/24 16:00 05/22/24 06:25 05/22/24 06:25
Intake & Output
05/20/24 05/21/24 05/22/24 05/23/24
07:59 07:59 07:59 07:59
Intake Total 1350 / 1350 240 / 240 720 / 720
Balance 1350 / 1350 240 / 240 720 / 720
Physical Exam
Physical Exam
No distress, regular rate and rhythm, soft systolic murmur, diminished breath sounds in bases, neck veins okay, still 4+ edema
--- NOTE | 2024-05-22 09:13 | W.PN.NEPH.HD ---
Assessment
-
Patient seen on dialysis
Systolic blood pressure 144
A.m. hydralazine held
IV Bumex converted to p.o.
Next dialysis will be Friday and then probable discharge if patient blood pressure remains stable over a week
Progress Note - Hemodialysis
-
Date of Service: May 22, 2024
Duration: 3 hours
Potassium Bath: 3
Calcium Bath: 2.5
Opti-Dialyzer: 160
Ultrafiltration: Other (3 kg)
Blood Flow: 350
Dialysate Flow: 600
Heparin: None
EPO: None
--- NOTE | 2024-05-22 09:19 | W.PN.HOSP.TC ---
Today's Communication/Plan
-
Continue to monitor breathing. Patient to undergo hemodialysis.
Assessment / Plan
Assessment / Plan
Assessment:
69 year old with PMH for CHF, atrial fib, and CHF presented to the hospital with sudden onset of shortness of breath while he was at work. He was diagnosed with respiratory failure due to acute flash pulmonary edema and started on diuresis therapy.
Patient has started his hemodialysis treatment for his worsening kidney function.
Plan:
#Acute hypoxemic respiratory failure due to acute flash pulmonary edema/acute on chronic HFpEF due to HTN emergency:
-was on NTG gtt, now off as of 05/18/24PM
-echo 04/23/24 EF 50-55%
-proBNP 24,200
-IV Lasix D/cd
-cardiology input appreciated
-elevated trop most likely due to acute nonischemic myocardial injury
-will need eventual outpatient ischemic evaluation
-was on BIPAP, now weaned to RA -> had to be put on non-rebreather yesterday but back on RA
-BP under control with 100mg Hydralazine
-CXR done urgently yesterday which showed improvement in pulmonary edema
#Multidrug-resistant essential hypertension
-Stopped nifedipine
-continue Coreg/hydralazine (100mg TID)/Cardizem (120mg)
#Paroxysmal Atrial Fibrillation:
-not chronically anticoagulated due to prior acute kidney injury
-cont Coreg, cont Aspirin
-Cardiology input appreciated
-Cardizem d/cd
-Heparin d/cd, started on Eliquis 5mg BID
#LIA on CKD4:
-Continued HD treatment
-Next dialysis treatment on Friday, then possible discharge if stable
Other problems:
Chronic macrocytic anemia: Hb stable, B12/folate normal, Fe studies unremarkable
DM2: a1c 5.2%, SSI/accuchecks
Obesity due to excess calories
FULL Code
DVT Prophylaxis: Eliquis
Anticipated Discharge: 24 - 48 hours
Subjective/Interval History
-
Date of Service: May 22, 2024
Patient has been feeling well. Reports no further episodes of dyspnea. Says he was able to sleep at night with no issues. Was wondering when he might be able to go home as he is feeling much better.
Objective Data
-
Labs:
Laboratory Results
05/22/24 05/22/24
06:06 08:39
WBC 6.2
Hgb 8.0 L
Hct 23.8 L
Plt Count 148
APTT 35.5 H
Sodium Pending
Potassium Pending
Chloride Pending
Carbon Dioxide Pending
BUN Pending
Creatinine Pending
Glucose Pending
Calcium Pending
Vital Signs:
Vital Signs
Temp Pulse Resp BP Pulse Ox
97.7 F 74 26 148/73 94
05/22/24 03:52 05/22/24 06:25 05/20/24 16:00 05/22/24 06:25 05/22/24 06:25
I&O
05/21/24 05/22/24 05/23/24
06:59 06:59 06:59
Intake Total 240 / 240 720 / 720
Balance 240 / 240 720 / 720
Review of Systems
-
History Source: Patient
Constitutional: Denies No Appetite, Fatigue, Night Sweats, Chills or Weakness
EENT: Reports No Symptoms Reported
Respiratory: Denies Cough or Trouble Breathing
Cardiac: Denies Chest Pain, Diaphoresis, Palpitations or Syncope
Abdomen/GI: Denies Abdominal Pain, Nausea, Vomiting or Diarrhea
Genitourinary: Reports No Symptoms
Musculoskeletal: Reports No Symptoms
Skin: Reports No Symptoms
Neuro: Reports No Symptoms
Endocrine: Reports No Symptoms
Hematologic / Lymphatic: Reports No Symptoms
Allergy / Immunology: Reports No Symptoms
Physical Exam
-
General: Well Developed, Well Nourished, No Apparent Distress and Comfortable
HEENT: Normocephalic, Atraumatic and Moist Mucous Membranes
Respiratory: Clear to Auscultation and Non Labored Respirations
Cardiac: Regular Rhythm and S1/S2
GI: Soft, Nontender and Nondistended
Musculoskeletal: No Clubbing, No Cyanosis, Edema, Right Lower Extrem (1+) and Edema, Left Lower Extrem (1+)
Skin: Warm and Dry
Neuro: Awake, Alert, Oriented and AO x 3
Psych: Calm
Data Reviewed
-
Labs: Labs Reviewed by me, Discussed with Physician, Discussed with Nurse and Discussed with Patient
[2024-05-22 09:25] LABS: Blood Urea Nitrogen 40 mg/dl (9-20); Calcium 7.9 mg/dl (8.4-10.2); Carbon Dioxide 27 mmol/L (22-30); Chloride 104 mmol/L (98-107); Estimated Creatinine Clearance 26 ml/min; Glucose 171 mg/dl (70-99); Potassium 3.4 mmol/L (3.5-5.1); Sodium 139 mmol/L (135-145); eGFR 17.74
[2024-05-22] MEDS: APRESOLINE PO (11:01)
[2024-05-22] MEDS: HEPARIN 4300 UNITS INTRACATH (11:41)
--- NOTE | 2024-05-22 11:58 | W.PN.UPDATE ---
Update Note
Progress Note Update
I saw and evaluated the patient. I reviewed the resident�s note and agree with findings and plan as documented in the resident�s note.
No acute complaints
Gen: continues to remain NAD, AAOx3.
Eyes: EOMI, PERRLA, no scleral icterus.
Neck: supple.
CV: RRR, +S1/S2, no m/r/g.
Resp: continues to remain CTAB, no rales, wheezes, or rhonchi.
Abd: +BS, soft, NT, ND
Skin: No rashes. remains 4+ B/L LE edema
Neuro: CN 2-12 intact, non-focal.
Psych: Normal mood and affect.
Acute hypoxemic respiratory failure due to acute flash pulmonary edema/acute on chronic HFpEF due to HTN emergency:
-was on NTG gtt, now off as of 05/18/24PM
-echo 04/23/24 EF 50-55%
-proBNP 24,200
-cont IV lasix and volume removal via HD
-daily wts, I/Os
-cards following
-elevated trop is acute nonischemic myocardial injury
-h/o Multidrug-resistant essential hypertension, continue Coreg/hydralazine
-was on BIPAP, then weaned to RA. 05/21/24AM pt placed on NRB due to SOB/hypoxemia. SBP was 191. Received 10mg IV Hydralazine, then SBP 150s on pt was on 6L via ventimask, symptomatically improved.
-hydralazine increased to 100mg TID
-continues to have volume removal via HD
-now on RA
PAF:
-not was chronically anticoagulated [employer] due to inability to safely dose anticoagulation due to renal disease
-was on heparin gtt, now transitioned to Eliquis
-cont Coreg
LIA on CKD4:
-HD cath placed 05/19/24 and HD initiated 05/20/24
-cont HD as per renal
Other problems:
Chronic macrocytic anemia: B12/folate normal, Fe studies unremarkable. Suspect anemia of chronic renal disease. Trend Hb, transfuse for Hb < 7.
DM2: a1c 5.2%, SSI/accuchecks
Obesity due to excess calories
FULL/Eliquis
[2024-05-22] MEDS: LOW STRENGTH ASPIRIN PO (12:01)
[2024-05-22] MEDS: LASIX IV (12:01)
[2024-05-22] MEDS: APRESOLINE 100 MG PO ×3 (12:02→21:49)
[2024-05-22] MEDS: COREG 25 MG PO ×2 (12:02→19:56)
[2024-05-22] MEDS: ELIQUIS 5 MG PO ×2 (12:03→19:56)
[2024-05-22 12:18] LABS: Glucose - Point of Care 107 mg/dl (70-99)
[2024-05-22 17:05] LABS: Glucose - Point of Care 142 mg/dl (70-99)
[2024-05-22 17:46] LABS: Glucose - Point of Care 170 mg/dl (70-99)
[2024-05-22] MEDS: LIPITOR 20 MG PO (21:49)
[2024-05-22 21:55] LABS: Glucose - Point of Care 146 mg/dl (70-99)
[2024-05-23 06:00] VITALS: BMI 33.7
[2024-05-23 06:17] LABS: Blood Urea Nitrogen 29 mg/dl (9-20); Calcium 7.6 mg/dl (8.4-10.2); Carbon Dioxide 32 mmol/L (22-30); Chloride 102 mmol/L (98-107); Estimated Creatinine Clearance 29 ml/min; Glucose 97 mg/dl (70-99); Potassium 3.4 mmol/L (3.5-5.1); Sodium 137 mmol/L (135-145); eGFR 20.43
[2024-05-23 07:40] LABS: Glucose - Point of Care 109 mg/dl (70-99)
[2024-05-23 07:48] VITALS: BP 156/72
--- NOTE | 2024-05-23 07:51 | W.PN.HOSP.TC ---
Today's Communication/Plan
-
Continue monitoring for any worsening respiratory function. Monitor lower extremity edema and if there is any improvement with new diuretic.
Assessment / Plan
Assessment / Plan
Assessment:
69 year old with PMH for CHF, atrial fib, and CHF presented to the hospital with sudden onset of shortness of breath while he was at work. He was diagnosed with respiratory failure due to acute flash pulmonary edema and started on diuresis therapy.
Patient has started his hemodialysis treatment for his worsening kidney function.
Plan:
#Acute hypoxemic respiratory failure due to acute flash pulmonary edema/acute on chronic HFpEF due to HTN emergency:
-was on NTG gtt, now off as of 05/18/24PM
-echo 04/23/24 EF 50-55%
-proBNP 24,200
-IV Lasix D/cd
-cardiology input appreciated
-elevated trop most likely due to acute nonischemic myocardial injury
-will need eventual outpatient ischemic evaluation
-was on BIPAP, now weaned to RA -> had to be put on non-rebreather during respiratory distress event but has continued to be back on RA
-BP under control with 100mg Hydralazine
-CXR showed improvement in pulmonary edema
#Multidrug-resistant essential hypertension
-Stopped nifedipine
-continue Coreg/hydralazine (100mg TID)/Cardizem (120mg)
#Paroxysmal Atrial Fibrillation:
-not chronically anticoagulated due to prior acute kidney injury
-cont Coreg, cont Aspirin
-Cardiology input appreciated
-Cardizem d/cd
-Heparin d/cd, started on Eliquis 5mg BID
#LIA on CKD4:
-Continued HD treatment
-Nephrology input appreciated
-Creatinine improving with treatment, now 3.2
-Started on Bumetanide by Nephrology due to increased peripheral edema
-Next dialysis treatment on Friday, then possible discharge if stable
Other problems:
Chronic macrocytic anemia: Hb stable, B12/folate normal, Fe studies unremarkable
DM2: a1c 5.2%, SSI/accuchecks
Obesity due to excess calories
FULL Code
DVT Prophylaxis: Eliquis
Anticipated Discharge: 24 - 48 hours
Subjective/Interval History
-
Date of Service: May 23, 2024
Patient is feeling much better. Says he has not had any adverse events overnight and that he is feeling much more energetic.
Objective Data
-
Labs:
Laboratory Results
05/23/24
04:27
Sodium 137
Potassium 3.4 L
Chloride 102
Carbon Dioxide 32 H
BUN 29 H
Creatinine 3.2 H
Glucose 97
Calcium 7.6 L
Vital Signs:
Vital Signs
Temp Pulse Resp BP Pulse Ox
98.4 F 67 16 156/72 97
05/23/24 07:48 05/23/24 07:48 05/23/24 07:48 05/23/24 07:48 05/23/24 07:48
I&O
05/22/24 05/23/24 05/24/24
06:59 06:59 06:59
Intake Total 720 / 720 480 / 480
Balance 720 / 720 480 / 480
Review of Systems
-
History Source: Patient
Constitutional: Denies Fever, Fatigue or Weakness
EENT: Reports No Symptoms Reported
Respiratory: Denies Cough, Trouble Breathing or Wheezing
Cardiac: Denies Chest Pain or Palpitations
Abdomen/GI: Denies Abdominal Pain, Nausea or Vomiting
Genitourinary: Reports No Symptoms
Musculoskeletal: Reports Edema
Skin: Reports No Symptoms
Neuro: Reports No Symptoms
Endocrine: Reports No Symptoms
Hematologic / Lymphatic: Reports No Symptoms
Allergy / Immunology: Reports No Symptoms
Physical Exam
-
General: Well Developed, Well Nourished, No Apparent Distress, Comfortable and Conversant
HEENT: Normocephalic, Atraumatic and Moist Mucous Membranes
Respiratory: Clear to Auscultation and Non Labored Respirations
Cardiac: Regular Rhythm and S1/S2
GI: Soft, Nontender and Nondistended
Musculoskeletal: No Clubbing, No Cyanosis, Edema, Right Lower Extrem (2+ Edema) and Edema, Left Lower Extrem (2+ Edema)
Skin: Warm and Dry
Neuro: Awake, Alert, Oriented, AO x 3, No Motor Deficits and No Sensory Deficits
Psych: Calm and Intact Judgement/Insight
Data Reviewed
-
Labs: Labs Reviewed by me, Discussed with Physician, Discussed with Nurse and Discussed with Patient
[2024-05-23] MEDS: APRESOLINE 100 MG PO ×3 (08:37→22:00)
[2024-05-23] MEDS: ELIQUIS 5 MG PO ×2 (08:38→20:42)
[2024-05-23] MEDS: COREG 25 MG PO ×2 (08:38→20:38)
[2024-05-23] MEDS: BUMEX 2 MG PO (09:18)
--- NOTE | 2024-05-23 09:32 | W.PN.UPDATE ---
Update Note
Progress Note Update
I saw and evaluated the patient. I reviewed the resident�s note and agree with findings and plan as documented in the resident�s note.
No acute complaints
Gen: NAD, AAOx3.
Eyes: EOMI, PERRLA, no scleral icterus.
Neck: supple.
CV: remains RRR, +S1/S2, no m/r/g.
Resp: CTAB, no rales, wheezes, or rhonchi.
Abd: +BS, soft, NT, ND
Skin: No rashes. continues to remain 4+ B/L LE edema
Neuro: CN 2-12 intact, non-focal.
Psych: Normal mood and affect.
Acute hypoxemic respiratory failure due to acute flash pulmonary edema/acute on chronic HFpEF due to HTN emergency:
-was on NTG gtt, now off as of 05/18/24PM
-echo 04/23/24 EF 50-55%
-proBNP 24,200
-cont IV lasix and volume removal via HD
-daily wts, I/Os
-cards following
-elevated trop is acute nonischemic myocardial injury
-h/o Multidrug-resistant essential hypertension, continue Coreg/hydralazine
-was on BIPAP, then weaned to RA. 05/21/24AM pt placed on NRB due to SOB/hypoxemia. SBP was 191. Received 10mg IV Hydralazine, then SBP 150s on pt was on 6L via ventimask, symptomatically improved.
-hydralazine increased to 100mg TID
-continues to have volume removal via HD
-now on RA
PAF:
-not was chronically anticoagulated [employer] due to inability to safely dose anticoagulation due to renal disease
-was on heparin gtt, now transitioned to Eliquis
-cont Coreg
LIA on CKD4:
-HD cath placed 05/19/24 and HD initiated 05/20/24
-cont HD as per renal
Other problems:
Hypokalemia: 40meq PO K
Chronic macrocytic anemia: B12/folate normal, Fe studies unremarkable. Suspect anemia of chronic renal disease. Trend Hb, transfuse for Hb < 7.
DM2: a1c 5.2%, SSI/accuchecks
Obesity due to excess calories
FULL/Eliquis
[2024-05-23] MEDS: KCL 40 MEQ PO (09:51)
--- NOTE | 2024-05-23 10:44 | W.PN.NEPH.PH ---
Today's Communication / Plan
-
Dialysis tomorrow morning then discharge
Assessment/Plan
-
Impression:
Hypertension
Heart failure reduced ejection fraction decompensated
Acute on chronic kidney disease
Chronic kidney disease stage IV
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
Hyperlipidemia
Edema
Anemia
Proteinuria
Plan:
Patient now on dialysis
Patient will be Friday dialysis schedule at present he is [facility] with our practice
He will be dialyzed tomorrow and then discharged home
His blood pressure appears to be well-controlled on his current antihypertensive regimen and we will continue to drop his dry weight as hemodynamically tolerated in the outpatient setting
-
-
Date of Service: May 23, 2024
CC / HPI / ROS
-
Chief Complaint:
LIA
Hypertensive emergency
History of Present Illness:
Blood pressure controlled on Coreg and hydralazine
Patient now on Friday schedule for dialysis
Review of Systems:
Less short of breath no reported chest pain
Nonoliguric
Weights down 10 kg since admission
Labs
-
Labs:
WBC 6.2 10^3/uL (4.8-10.8) 05/22/24 06:06
RBC 2.49 10^6/uL (4.70-6.10) L 05/22/24 06:06
Hgb 8.0 g/dL (13.0-18.0) L 05/22/24 06:06
Hct 23.8 % (39.0-52.0) L 05/22/24 06:06
Plt Count 148 10^3/uL (130-400) 05/22/24 06:06
Sodium 137 mmol/L (135-145) 05/23/24 04:27
Potassium 3.4 mmol/L (3.5-5.1) L 05/23/24 04:27
Chloride 102 mmol/L (98-107) 05/23/24 04:27
Carbon Dioxide 32 mmol/L (22-30) H 05/23/24 04:27
BUN 29 mg/dl (9-20) H 05/23/24 04:27
Creatinine 3.2 mg/dL (0.7-1.3) H 05/23/24 04:27
eGFR 20.43 05/23/24 04:27
Glucose 97 mg/dl (70-99) 05/23/24 04:27
Calcium 7.6 mg/dl (8.4-10.2) L 05/23/24 04:27
Phosphorus 5.1 mg/dl (2.5-4.5) H 05/19/24 22:16
Dpk-W-Vfghtnwtrbk Pept 93422 pg/ml 05/17/24 11:03
Albumin 2.3 g/dl (3.5-5.0) L 05/18/24 04:08
Physical Exam
-
Vital Signs:
Vital Signs
Temp Pulse Resp BP Pulse Ox
98.4 F 67 16 156/72 97
05/23/24 07:48 05/23/24 09:18 05/23/24 07:48 05/23/24 09:18 05/23/24 07:48
Cardiovascular:: Regular rate and rhythm
Respiratory:: Bilateral: Coarse (Fine crackles at bases)
Lung Excursion:: Normal
Abdomen:: Nontender and Soft
Bowel Sounds:: Normal
Extremity Edema:: +2: Bilateral:
Gomez Catheter: No
[2024-05-23 12:29] LABS: Glucose - Point of Care 139 mg/dl (70-99)
[2024-05-23 15:30] VITALS: BP 163/56
[2024-05-23 16:21] LABS: Glucose - Point of Care 101 mg/dl (70-99)
[2024-05-23 21:18] LABS: Glucose - Point of Care 121 mg/dl (70-99)
[2024-05-23] MEDS: LIPITOR 20 MG PO (22:00)
[2024-05-23 22:57] VITALS: BP 145/74
[2024-05-24 05:17] VITALS: BMI 32.5
[2024-05-24 06:26] LABS: Hematocrit 25.7 % (39.0-52.0); Hemoglobin 8.6 g/dL (13.0-18.0); Mean Corp Hgb Conc. 33.5 g/dL (33.0-37.0); Mean Corpuscular Hgb 32.3 pg (27.0-31.0); Mean Corpuscular Volume 96.6 fL (80.0-94.0); Mean Platelet Volume 11.4 fL (7.4-10.4); Platelet Count 167 10^3/uL (130-400); Red Blood Cell Count 2.66 10^6/uL (4.70-6.10); Red Cell Dist. Width 14.7 % (11.5-14.5)
[2024-05-24 07:18] VITALS: BP 159/82
[2024-05-24] MEDS: BUMEX PO (08:07)
[2024-05-24] MEDS: APRESOLINE PO (08:07)
[2024-05-24] MEDS: COREG PO (08:07)
[2024-05-24] MEDS: ELIQUIS 5 MG PO (08:08)
[2024-05-24 08:15] LABS: Glucose - Point of Care 105 mg/dl (70-99)
[2024-05-24 08:47] LABS: Blood Urea Nitrogen 32 mg/dl (9-20); Calcium 8.1 mg/dl (8.4-10.2); Carbon Dioxide 30 mmol/L (22-30); Chloride 103 mmol/L (98-107); Estimated Creatinine Clearance 24 ml/min; Glucose 107 mg/dl (70-99); Potassium 3.7 mmol/L (3.5-5.1); Sodium 139 mmol/L (135-145); eGFR 16.62
[2024-05-24] MEDS: FERRLECIT 125 MG IV (09:12)
[2024-05-24] MEDS: RETACRIT 10000 UNITS IV (09:12)
--- NOTE | 2024-05-24 10:09 | W.PN.NEPH.HD ---
Progress Note - Hemodialysis
-
Date of Service: May 24, 2024
Duration: 3 hours
Potassium Bath: 3
Calcium Bath: 2.5
Opti-Dialyzer: 160
Ultrafiltration: Other (3 kg)
Blood Flow: 350
Dialysate Flow: 600
Heparin: None
EPO: None
[2024-05-24 11:30] VITALS: BP 158/101
[2024-05-24 11:36] LABS: Glucose - Point of Care 96 mg/dl (70-99)
[2024-05-24] MEDS: HEPARIN 4300 UNITS INTRACATH (11:42)
--- NOTE | 2024-05-24 11:45 | CM ---
Chart reviewed - for discharge today
[facility] ([phone][facility] to confirm chair time - per [facility] - 4PM
Aware pt for discharge today - requested pt arrive 30 minutes prior to chair time
Reviewed instructions with pt - aware
Reports will have ride home
Plan - home no needs. Outpatient HD at [facility] schedule - at 4PM - to start
--- NOTE | 2024-05-24 15:03 | W.PN.HOSP.TC ---
Addendum entered and electronically signed by Justin Simmons MD 05/25/24 00:09:
Attending Addendum:
I saw and evaluated the patient. I reviewed the resident�s note and agree with findings and plan as documented in the resident�s note. Sub: Ready to go home. No complaints. Full 12 point ROS reviewed and negative except as documented Exam: Vitals
reviewed in chart GEN-NAd heart RRR lungs rales at bases abd soft LE no edema RUE cath present CDI
#Acute hypoxemic respiratory failure due to acute flash pulmonary edema/acute on chronic HFpEF due to HTN emergency:
-was on NTG gtt, now off as of 05/18
-echo 04/23/24 EF 50-55%
-proBNP 24,200
-cont IV lasix and volume removal via HD
-daily wts, I/Os
-cards following
-elevated trop is acute nonischemic myocardial injury
-h/o Multidrug-resistant essential hypertension, continue Coreg/hydralazine
-hydralazine increased to 100mg TID
-continues to have volume removal via HD
-Acute Hypoxemic resp failure- resolved was on BIPAP, then weaned to RA. 05/21/24AM pt placed on NRB due to SOB/hypoxemia. pt was on 6L via ventimask, symptomatically improved. now on RA
PAF:
-not was chronically anticoagulated [employer] due to inability to safely dose anticoagulation due to renal disease
-was on heparin gtt, now transitioned to Eliquis
-cont Coreg
LIA on CKD4->ESRD:
-HD cath placed 05/19/24 and HD initiated 05/20/24,
-HD on 05/24
-MWF schedule
-cont HD as per blade
-cont bumex per nephro
Other problems:
Hypokalemia: resolved
Chronic macrocytic anemia: B12/folate normal, Fe studies unremarkable. Suspect anemia of chronic renal disease. Trend Hb, transfuse for Hb < 7.
DM2: a1c 5.2%, SSI/accuchecks
Obesity due to excess calories
FULL/Eliquis
Time spent coordinating care, DC planning, review of DC plan of care with resident, transition of care, review of records, med rec/scripts sent electronically, consults, notes, d/w consultants, nursing, family, and CM� 36 mins
Original Note:
Today's Communication/Plan
-
.
Assessment / Plan
Assessment / Plan
69 year old with PMHx of CHF, atrial fibrillation, presented to the hospital with sudden onset of shortness of breath while he was at work. He was diagnosed with respiratory failure due to acute flash pulmonary edema and started on diuresis therapy.
Patient has started his hemodialysis treatment for his worsening kidney function.
#Acute Hypoxemic Respiratory Failure due to Acute Flash Pulmonary Edema/Acute on Chronic HFpEF due to HTN Emergency:
- Was on NTG gtt initially, off since 05/18/24.
- ECHO 04/23/24 EF 50-55%
- pro-BNP 24,200 on day of admission
- Apprecciate cardiology reccs
- Lasix D/cd, patient transitioned to Bumex. Continue Bumex 2 mg PO daily outpatient.
- was on BIPAP, now weaned to RA -> had to be put on non-rebreather during respiratory distress event but has continued to be back on RA
- BP under control with 100mg Hydralazine TID; continue this with Coreg outpatient
- CXR showed improvement in pulmonary edema
# - Elevated Troponin
- 0.083 on admission, troponins trended
- likely 2/2 ischemic myocardial injury
- ASA discontinued
- will need eventual outpatient ischemic evaluation; cards will consider sestamibi imaging vs left heart cath
#Multidrug-resistant essential hypertension
-Stopped nifedipine
-continue Coreg/hydralazine (100mg TID)/Cardizem (120mg)
#Paroxysmal Atrial Fibrillation:
-not chronically anticoagulated prior to admission due to prior LIA
-Cardiology input appreciated
-Cardizem d/cd
-Heparin d/cd, started on Eliquis 5mg BID; continue outpatient.
#LIA on CKD4, now ESRD.
-Continued HD treatment
-Nephrology input appreciated
-Creatinine improving with treatment, 3.8 this AM
-Started on Bumetanide by Nephrology due to increased peripheral edema
-Received HD this AM; patient to schedule outpatient HD starting on Friday with a [facility] schedule.
Other problems:
Chronic macrocytic anemia: Hb stable, B12/folate normal, Fe studies unremarkable
DM2: a1c 5.2%, SSI/accuchecks
Obesity due to excess calories
FULL Code
DVT Prophylaxis: Eliquis
Anticipated Discharge: Today
Subjective/Interval History
-
Date of Service: May 24, 2024
Patient seen and examined while resting in bed, receiving dialysis. Patient seen again while sitting in chair, awaiting discharge. Patient states he is feeling much better, particularly compared to day of admission. Patient does not have any acute
complaints this AM. Specifically denies chest pains, shortness of breath, abdominal pain, or complaints related to his HD cath. He notes his lower extremity edema is also improved greatly from admission.
Objective Data
-
Labs:
Laboratory Results
05/24/24 05/24/24
05:03 07:35
WBC 7.0
Hgb 8.6 L
Hct 25.7 L
Plt Count 167
Sodium Cancelled 139
Potassium Cancelled 3.7
Chloride Cancelled 103
Carbon Dioxide Cancelled 30
BUN Cancelled 32 H
Creatinine Cancelled 3.8 H
Glucose Cancelled 107 H
Calcium Cancelled 8.1 L
Vital Signs:
Vital Signs
Temp Pulse Resp BP Pulse Ox
98.0 F 90 16 158/101 97
05/24/24 11:45 05/24/24 11:30 05/24/24 11:45 05/24/24 11:30 05/24/24 11:45
I&O
05/23/24 05/24/24 05/25/24
06:59 06:59 06:59
Intake Total 480 / 480 1440 / 1440 300 / 300
Output Total 200 / 200
Balance 480 / 480 1440 / 1440 100 / 100
Review of Systems
-
History Source: Patient
Constitutional: Reports No Symptoms
Respiratory: Reports No Symptoms
Cardiac: Reports No Symptoms
Abdomen/GI: Reports No Symptoms
Musculoskeletal: Reports Edema (improved. )
Neuro: Reports No Symptoms
Physical Exam
-
General: No Apparent Distress, Comfortable and Conversant
HEENT: Normocephalic and Atraumatic
Respiratory: Clear to Auscultation
Cardiac: Regular Rhythm and S1/S2
GI: Soft and Nontender
Musculoskeletal: No Clubbing, No Cyanosis and Other (3+ Bilateral Lower Extremity Edema)
Skin: Warm and Dry
Neuro: Awake and Alert
Psych: Calm
Data Reviewed
-
Labs: Labs Reviewed by me and Discussed with Patient
--- NOTE | 2024-05-24 17:50 | W.DCSUMMARY ---
Addendum entered and electronically signed by Justin Simmons MD 05/25/24 00:13:
Read, reviewed. See same day progress note for additional details. DC summary states Cardizem on DC which is incorrect. DC antiHTN meds- coreg and hydralazine DC nifedipine and losartan
Cristhian Simmons MD
Original Note:
Documented by User: Mikal Chong DO, Resident 05/24/24 18:20
Discharge Summary
Discharge Data
Date of Admission: 05/17/24
Date of Discharge: 05/24/24
-
Pending Results: No
Hospital Course
History of Illness Prior to Arrival: Mr. Davis is a 69-year-old male who notably had been recently admitted to [facility] and treated for congestive heart failure with paroxysmal atrial fibrillation in April. During that admission, the
patient left AGAINST MEDICAL ADVICE. On 05/17/2024, the patient returned to the emergency department with sudden onset shortness of breath without chest pain, palpitations, dizziness, nausea, vomiting. The patient endorsed being at his baseline
health when he had left his house to go to work that morning. Per paramedics, patient was found to be in severe respiratory distress and hypertensive. He was placed on CPAP, and given 8 times sublingual nitroglycerin en route to the hospital with
only mild improvements of his symptoms.
ED Course: In the emergency department, the patient was found to be in moderate respiratory distress with bilateral bibasilar crackles. Additionally, the patient was hypotensive and tachypneic. Patient was placed on BiPAP, started on Lasix, and a
Gomez catheter was placed. Notably, the patient's BUN was 54, and creatinine was 4.4. Chest x-ray showed prominent markings, most likely due to acute pulmonary edema. Patient also had a significantly elevated proBNP. The patient was admitted for
treatment of acute flash pulmonary edema in the setting of hypertensive emergency, as well as chronic kidney disease.
Hospital Course:
Acute Flash Pulmonary Edema
In order to diurese the patient's fluid, the patient was started on IV Lasix 80 mg twice a day. On this regimen, the patient continued to show improvement in pulmonary edema, however the patient continued to have worsening peripheral edema.
Patient's regimen was changed to bumetanide by the group exercise class instructor. The patient had originally been on 1.5 mg of bumetanide daily prior to arrival, however, this dose was increased to 2 mg daily. On this dose, the patient's pulmonary edema continue
to be improved, and his peripheral edema started to improve as well. The patient was discharged on bumetanide 2 mg daily.
Multi-drug Resistant Hypertension
Although a component of the patient's multidrug resistant hypertension during the course of his admission is probably a reflection of fluid retention, the patient's antihypertensive regimen was reconfigured during the course of his stay in order to
maintain a goal blood pressure, as well as fit within the context of the patient's acute kidney injury/end-stage renal disease. The patient's antihypertensive regimen was changed to 100 mg of hydralazine 3 times a day along with his usual dose of
Coreg. Losartan was discontinued in the setting of end-stage renal disease. Additionally the patient was started on Cardizem at a dose of 120 mcg. The patient was instructed to follow-up with the sociocultural anthropology professor for her maintenance of this regimen,
as well as outpatient ischemic evaluation with possible sestamibi imaging versus left heart catheterization in the setting of initially elevated troponin levels on arrival.
Paroxysmal Atrial Fibrillation
The patient was not chronically anticoagulated prior to his admission due to his prior acute kidney injury. During his admission, the patient was started on heparin. however, in the setting of the patient being started on hemodialysis, Eliquis was
chosen for anticoagulation to be continued as an outpatient. Cardizem can be continued as above.
Acute Kidney Injury on chronic kidney disease IV
Although initially hesitant, the patient agreed to start hemodialysis for his chronic kidney disease. Patient was dialyzed 4 times during his stay, and a schedule was discussed with nephrology for outpatient dialysis on Wednesdays and
Fridays at their clinic. Patient's creatinine steadily improved with this treatment, and was 3.8 by the time of discharge.
The patient was discharged to home on 05/24/2024 with recommendations for follow-up with his primary care provider, nephrology, and cardiology.
Discharge Plan
-
Patient Disposition: Home (Routine Discharge)
Discharge Diagnosis/Procedures: Acute Hypoxemic Respiratory Failure Secondary to Acute Flash Pulmonary Edema
Acute on Chronic Heart Failure with Preserved Ejection Fraction Secondary to Hypertensive Emergency
Paroxysmal Atrial Fibrillation
End-Stage Renal Disease
Hypokalemia
Condition: Fair
Diet: Diabetic, Carb Controlled
Activity: As tolerated
Specialty Instructions: Weigh Daily- Call MD for wt gain/loss 3 lbs overnight/5 lbs in 1 week
Instructions: *DCA Heart Failure Instructions
Referrals:
Misbah Barton DO [Family Provider] - in less than 1 week
Flavio Crane, [Active] - 05/31/24 3:40 pm (You have cardiology follow up with Dr. Flavio Crane on May 31 at 3:40 PM. Your appointment is in [address] in the [place] which is located behind the hospital. If you are unable to make
this appointment please call [phone] to reschedule)
Additional Discharge Medication Instructions: First Outpatient Dialysis Session On Friday
Prescriptions:
New
bumetanide 2 mg Tablet
2 mg PO DAILY Qty: 30 0RF
hydralazine 50 mg Tablet
100 mg PO TID Qty: 30 0RF
Eliquis 5 mg Tablet
5 mg PO BID Qty: 30 0RF
Continued
carvedilol 25 mg Tablet
25 mg PO BID
atorvastatin 20 mg Tablet
20 mg PO HS
hydrocodone-acetaminophen 7.5-325 mg Tablet
1 tab PO TIDPRN PRN (Reason: arthritis pain)
Discontinued
hydralazine 25 mg Tablet
25 mg PO BID
aspirin 81 mg Tablet,Chewable
81 mg PO DAILY
bumetanide 1 mg Tablet
1.5 mg PO BID
losartan 100 mg Tablet
100 mg PO DAILY
Discharge Orders:
Discharge Patient (As Directed); Ordered 05/24/24
Ordered By: Mikal Chong
Discharge Date and Time
Discharge Date/Time: 05/24/24 13:48
Print Language: NORTH KOREAN

Documented by User: Justin Simmons MD 05/25/24 00:03
Discharge Summary
Discharge Data
Date of Admission: 05/17/24
Date of Discharge: 05/25/24
Discharge Plan
-
Patient Disposition: Home (Routine Discharge)
Discharge Diagnosis/Procedures: Acute Hypoxemic Respiratory Failure Secondary to Acute Flash Pulmonary Edema
Acute on Chronic Heart Failure with Preserved Ejection Fraction Secondary to Hypertensive Emergency
Paroxysmal Atrial Fibrillation
End-Stage Renal Disease
Hypokalemia
Condition: Fair
Diet: Diabetic, Carb Controlled
Activity: As tolerated
Specialty Instructions: Weigh Daily- Call MD for wt gain/loss 3 lbs overnight/5 lbs in 1 week
Instructions: *DCA Heart Failure Instructions
Referrals:
Misbah Barton DO [Family Provider] - in less than 1 week
Flavio Crane DO [Active] - 05/31/24 3:40 pm (You have cardiology follow up with Dr. Flavio Crane on May 31 at 3:40 PM. Your appointment is in [address] in the [place] which is located behind the hospital. If you are unable to make
this appointment please call [phone] to reschedule)
Additional Discharge Medication Instructions: First Outpatient Dialysis Session On Friday
Prescriptions:
New
bumetanide 2 mg Tablet
2 mg PO DAILY Qty: 30 0RF
hydralazine 50 mg Tablet
100 mg PO TID Qty: 30 0RF
Eliquis 5 mg Tablet
5 mg PO BID Qty: 30 0RF
Continued
carvedilol 25 mg Tablet
25 mg PO BID
atorvastatin 20 mg Tablet
20 mg PO HS
hydrocodone-acetaminophen 7.5-325 mg Tablet
1 tab PO TIDPRN PRN (Reason: arthritis pain)
Discontinued
hydralazine 25 mg Tablet
25 mg PO BID
aspirin 81 mg Tablet,Chewable
81 mg PO DAILY
bumetanide 1 mg Tablet
1.5 mg PO BID
losartan 100 mg Tablet
100 mg PO DAILY
Discharge Orders:
Discharge Patient (As Directed); Ordered 05/24/24
Ordered By: Mikal Chong
Discharge Date and Time
Discharge Date/Time: 05/24/24 13:48
Print Language: NOR[place]ORE[place]
--- NOTE | 2024-05-25 09:32 | W.HF.CON ---
Heart Failure
- LV Function
Left ventricular function study result: LV Ejection fraction >/= 50%
Ejection Fraction Percentage: 50-55
- ARNI
Patient already on ARNI: No
Heart Failure ARNI Not Indicated: LV Ejection Fraction >/= 40%
- ACEI/ARB
Patient already on ACEI/ARB: No
Heart Failure ACEI/ARB Not Indicated: LV Ejection Fraction > 40%
- Beta Fatou
Patient already on Evidence Based Beta Fatou: Yes
- Mineralocorticord Receptor Antagonist
Patient already on MRA: No
Heart Failure MRA Not Indicated: LV Ejection Fraction > 40%
- SGLT-2 Inhibitor
Patient already on SGLT-2 Inhibitor: No
Heart Failure SGLT-2 Inhibitor Contraindication: Patient currently on Dialysis
- Afib Anticoagulation
Patient already on Anticoagulation for Afib: Yes
- NYHA CHF Classification
NYHA CHF Classification Level: Class III - Symptoms w/ min exertion, interferes w/ nml daily activity
- ACC/AHA Stage
ACC/AHA Stage: Stage C: Symptomatic Heart Failure
== END 2024-05-24 13:48 | disposition home or self-care (01) | DRG 673 ==
LOC: 2 SOUTH 13:27
PROVIDERS: Internal Medicine; Nurse Practitioner Gerontology; Physician Assistant Medical; Radiology Vascular & Interventional Radiology; Registered Nurse; Specialist; ADMITTING PHYSICIAN Internal Medicine; ATTENDING PHYSICIAN Family Medicine; CONSULT PHYSICIAN Internal Medicine Cardiovascular Disease; EMERGENCY PHYSICIAN Emergency Medicine; FAMILY PHYSICIAN Family Medicine; OTHER PHYSICIAN Specialist
PROC: 0JH63XZ Insertion of Tunneled Vascular Access Device into Chest Subcutaneous Tissue and Fascia, Percutaneous Approach (ICD-10-PCS; 2024-05-19)
PROC: 05HM33Z Insertion of Infusion Device into Right Internal Jugular Vein, Percutaneous Approach (ICD-10-PCS; 2024-05-19)
DX: N17.9 Acute kidney failure, unspecified (principal); I50.43 Acute on chronic combined systolic (congestive) and diastolic (congestive) heart failure; J96.01 Acute respiratory failure with hypoxia; I16.1 Hypertensive emergency; I5A Non-ischemic myocardial injury (non-traumatic); I13.2 Hypertensive heart and chronic kidney disease with heart failure and with stage 5 chronic kidney disease, or end stage renal disease; Z87.891 Personal history of nicotine dependence; N18.6 End stage renal disease; I48.0 Paroxysmal atrial fibrillation; E87.6 Hypokalemia; E66.09 Other obesity due to excess calories; Z68.32 Body mass index [BMI] 32.0-32.9, adult; D53.9 Nutritional anemia, unspecified
CPT/HCPCS: 93308; 36558; 71045; 76937; 77001; 80048; 80053; 80061; 81050; 82248; 82570; 82607; 82728; 82746; 82962; 83516; 83540; 83550; 83735; 83880; 84100; 84156; 84443; 84466; 84484; 85025; 85027; 85610; 85730; 86038; 86160; 86704; 86706; 86803; 87340; 93005; 93975; 94660; 96374; 96375; 99152; 99153; 99291; C1750; G0257; J2916; P9047; Q5106

== ENCOUNTER → 2024-08-16 07:37 | Outpatient (REF) | payer MEDICARE, OTHER, SELFPAY ==
[2024-08-16 08:06] VITALS: BP 177/78; BP_SYST 68
[2024-08-16] MEDS: ANCEF 10 IV (09:00)
[2024-08-16 09:58] VITALS: BP 172/73; BP_SYST 63
== END ==
LOC: RADI 07:37
PROVIDERS: ATTENDING PHYSICIAN Internal Medicine Nephrology; FAMILY PHYSICIAN Family Medicine
DX: T82.49XA Other complication of vascular dialysis catheter, initial encounter (principal); Y82.8 Other medical devices associated with adverse incidents; N18.6 End stage renal disease
CPT/HCPCS: 36581; 77001; C1750; C1769

== ENCOUNTER 2024-08-17 04:30 | Emergency (ER) | payer MEDICARE, OTHER, SELFPAY ==
[2024-08-17 04:31] VITALS: BP 198/90
--- NOTE | 2024-08-17 04:54 | ED.GENMED ---
History of Present Illness
General
Chief Complaint: Catheter/Tube Problem
Source: patient
Exam Limitations: none
Time Seen by Provider: 08/17/24 04:53
Nursing documentation reviewed up to this point in time: agreed with
History of Present Illness
History of Present Illness:
69-year-old male with a past medical history of hypertension, CKD stage IV on dialysis, CHF, hyperlipidemia, presents emergency department today with concerns of bleeding from his central venous dialysis catheter. Patient reports that he started
dialysis a few months ago and had the catheter switched out yesterday morning with interventional radiology Dr. Carrillo. Patient reports that this time decision has been made bigger to remove the old catheter and placed a new one. Patient wants to
eat does take Coumadin. Patient reports that he noticed a little bit of bleeding before he went to bed and he called the doctor who told him to apply pressure. Patient then looked up to and noticed that his gauze was soaked in blood and patient
states that the bleeding would not stop. His doctor told him to ago to emergency department for a stitch should the bleeding not stop. He denies dizziness, lightheadedness, pain at the catheter site. He denies any fevers or chills.
Past History
Past History
ED Past Medical History: HTN, Hypercholesterolemia and NIDDM; Negative CHF, NM or Valvular disease
Social History
Tobacco: Former smoker
Alcohol: None
Drug: None
Personal:
Living: with family
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
Review of Systems
Review of Systems
All Other Systems: ROS reviewed and negative except as documented in HPI and ROS
Phy Exam
Physical Exam
Physical Exam:
General: Patient is well appearing and in no acute distress; non-toxic
Skin: Central venous catheter site noted to right upper chest wall with active bleeding, overlying ecchymosis
Head: Normocephalic, atraumatic
Eyes: Sclera non-icteric. EOMs intact.
Cardiac: Regular rate and rhythm, no murmurs
Peripheral Vascular: No lower extremity swelling or edema
Pulm: Normal respiratory effort, no wheezes, rales, or rhonchi
Neuro: CN II-XII intact, no focal neurologic deficits.
Psychiatric: Appropriate mood and affect.
Course
Vital Signs
Blood pressure: 168/68
Initial and Last Documented VS:
Initial Vital Signs
Temp Pulse Resp BP Pulse Ox
97.4 F 60 18 198/90 98
08/17/24 04:31 08/17/24 04:31 08/17/24 04:31 08/17/24 04:31 08/17/24 04:31
Last Documented Vital Signs
Temp Pulse Resp BP Pulse Ox
97.4 F 60 16 164/76 99
08/17/24 04:31 08/17/24 06:20 08/17/24 06:20 08/17/24 06:20 08/17/24 06:20
Procedures
Laceration Closure
right upper chest wall:
Status of Wound: clean
Size of Wound in cm: 1
Anesthesia: 1% Lidocaine with epi
Type of Closure: single layer closure
Skin Closure Material: 4-0 prolene
Number of sutures: 1
MDM/Problems Addressed
Differential Diagnosis Includes:
bleeding catheter site
MDM/Problems Addressed:
69-year-old male presents to emergency department today with bleeding from his dialysis catheter. Bleeding well-controlled with 1 simple interrupted stitch. Patient was observed for period of time and reassessed with no evidence of rebleeding.
Patient stable for discharge. New dressing applied. Return precautions discussed.
Chronic conditions affecting care:
afib, chf, htn, hlp, ckd on dialysis
*Pulse Oximetry
Patient hypoxic: no
*Critical Care Note
Total Time (30-74mins, 75-104mins- exclusive of procedures): Not Applicable
Data Reviewed
Review of Other/Old Records Reveals: Records (Reviewed discharge summary from 05/24/2024 patient seen for/pulmonary edema and started on dialysis)
Source: patient and records
ED Attending Note
-
Portions of this chart may have been created with voice recognition software.� Occasional wrong word or��sound alike� substitutions may have occurred due to the inherent limitations of voice recognition software.
Discharge Plan
Departure
Patient Disposition: Home (Routine Discharge)
Date of Disposition: 08/17/24
Time of Disposition: 06:11
Patient with high blood pressure during this ER visit?: Yes
Condition: Good
Discharge Problem:
Bleeding due to dialysis catheter placement
Instructions: Stitches and gonzalo, Hemodialysis catheter placement, BLOOD PRESSURE
Prescriptions:
No Action
carvedilol 25 mg Tablet
25 mg PO BID
atorvastatin 20 mg Tablet
20 mg PO HS
hydrocodone-acetaminophen 7.5-325 mg Tablet
1 tab PO TIDPRN PRN (Reason: arthritis pain)
bumetanide 2 mg Tablet
2 mg PO DAILY Qty: 30 0RF
Eliquis 5 mg Tablet
5 mg PO BID Qty: 30 0RF
sucroferric oxyhydroxide 500 mg Tablet,Chewable
500 mg PO TID
Referrals:
Misbah Barton DO [Family Provider] -
Activity Restrictions/Additional Instructions:
You had 1 stitch placed near your catheter site to control bleeding. It is the blue stitch. This can be removed in a few days.
Please follow up with your transformation analyst.
PLEASE RETURN TO THE ER SHOULD YOU DEVELOP AN ACUTE WORSENING OF YOUR SYMPTOMS, LIGHTHEADEDNESS, DIZZINESS, CHEST PAIN, SHORTNESS OF BREATH, SWELLING IN YOUR LEGS, FAINTING SPELLS, OR ANY OTHER SIGNS OR SYMPTOMS WORRISOME TO YOU.
Interventions
Interventions:
*Risk Screen - Suicide Last Done: 08/17/24 05:12
*General Assessment Last Done: 08/17/24 05:12
*Neglect/Abuse Screening Last Done: 08/17/24 05:12
*ED- Fall Risk Assessment Last Done: 08/17/24 05:12
*ED COVID-19 Vaccine History Last Done: 08/17/24 05:12
*Nursing Disposition Last Done: 08/17/24 06:30
Discharge Date and Time
Discharge Date/Time: 08/17/24 06:30
Print Language: TURKMEN
--- NOTE | 2024-08-17 05:18 | EDRN ---
is bleeding around the port. Noted bleeding on the L side posterior port. Pressure applied.
[2024-08-17 06:20] VITALS: BP 164/76
== END 2024-08-17 06:30 | disposition home or self-care (01) ==
LOC: EMR 04:30
PROVIDERS: EMERGENCY PHYSICIAN Student in an Organized Health Care Education/Training Program; FAMILY PHYSICIAN Family Medicine
DX: T82.838A Hemorrhage due to vascular prosthetic devices, implants and grafts, initial encounter (principal); Y83.8 Other surgical procedures as the cause of abnormal reaction of the patient, or of later complication, without mention of misadventure at the time of the procedure; I13.2 Hypertensive heart and chronic kidney disease with heart failure and with stage 5 chronic kidney disease, or end stage renal disease; E11.22 Type 2 diabetes mellitus with diabetic chronic kidney disease; I50.9 Heart failure, unspecified; N18.6 End stage renal disease; I48.91 Unspecified atrial fibrillation; Z99.2 Dependence on renal dialysis; Z87.891 Personal history of nicotine dependence; E78.00 Pure hypercholesterolemia, unspecified; Z79.01 Long term (current) use of anticoagulants
CPT/HCPCS: 12001; 99282

== ENCOUNTER 2024-08-17 15:39 | Emergency (ER) | payer MEDICARE, OTHER, SELFPAY ==
[2024-08-17 15:42] VITALS: BP 173/88
--- NOTE | 2024-08-17 18:10 | ED.GENMED ---
History of Present Illness
General
Chief Complaint: Catheter/Tube Problem
Source: patient
Exam Limitations: none
Time Seen by Provider: 08/17/24 17:24
Nursing documentation reviewed up to this point in time: agreed with
History of Present Illness
History of Present Illness:
69 yo male with hx afib on Coumadin, right upper chest dialysis catheter changed yesterday and Dr. Arguello 'told me he had to make a little bit bigger incision to get the old catheter out.' Pt noted blood soaking sheet and came here 4 a.m., one
suture was applied with good hemostasis. He had dialysis earlier today and felt the tubing pulling on the catheter. Later, at home noted blood dripping from the same site and soaking his dressing. He is here with blood soaked dressing.
Past History
Past History
ED Past Medical History: Arrthythmia (Afib on Coumadin), CHF, HTN, Hypercholesterolemia, NIDDM and Renal failure
Social History
Tobacco: Former smoker
Alcohol: None
Drug: None
Personal:
Living: with family
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
Review of Systems
Review of Systems
Allergies reviewed?: Yes
All Other Systems: ROS reviewed and negative except as documented in HPI and ROS
Constitutional: Denies fever
Respiratory: Denies trouble breathing
Cardiac: Denies chest pain
Skin: Reports other (bleeding from incision at dialysis catheter site. )
Neurological: Denies dizzy, weakness or numbness
Phy Exam
Physical Exam
Physical Exam:
GENERAL: No acute distress. A&Ox3.
CONSTITUTIONAL: Afebrile.
RESPIRATORY: Regular respirations, nonlabored, lungs clear.
CARDIOVASCULAR: Regular rate and rhythm, no murmurs, no rubs.
GI: Soft, nontender, normal BS
MUSCULOSKELETAL: Moves with ease. Well perfused.
SKIN: Warm, dry, pink. Dialysis catheter intact with constant oozing small amount venous blood at incision site. No redness swelling or warmth.
PSYCH: Normal mood and affect. Well kept, interactive and appropriate
NEUROLOGIC: Awake, alert and oriented. No focal neurological deficits
Course
Orders/Labs/Results
Orders:
Orders
08/17/24 17:50
Tranexamic Acid 1,000 mg .ROUTE .STK-MED ONE
08/17/24 18:07
INR [Prothrombin Time] Urgent
Abnormal Lab Results
08/17/24
18:07
PT 35.0 H Sec
(11.4-14.6)
Vital Signs
Initial and Last Documented VS:
Initial Vital Signs
Temp Pulse Resp BP Pulse Ox
98.3 F 74 15 173/88 98
08/17/24 15:42 08/17/24 15:42 08/17/24 15:42 08/17/24 15:42 08/17/24 15:42
Last Documented Vital Signs
Temp Pulse Resp BP Pulse Ox
98.3 F 74 15 173/78 98
08/17/24 15:42 08/17/24 15:42 08/17/24 15:42 08/17/24 18:40 08/17/24 15:42
MDM/Problems Addressed
MDM/Problems Addressed:
69 yo male with hx afib on Coumadin, right upper chest dialysis catheter changed yesterday and Dr. Arguello 'told me he had to make a little bit bigger incision to get the old catheter out.' Pt noted blood soaking sheet and came here 4 a.m., one
suture was applied with good hemostasis. He had dialysis earlier today and felt the tubing pulling on the catheter. Later, at home noted blood dripping from the same site and soaking his dressing. He is here with blood soaked dressing.
Procedure:
Area cleansed with NSS
1 cc Lidocaine with epi injected
One [3-0] Prolene suture placed with good hemostasis.
Area re dressed.
*Critical Care Note
Total Time (30-74mins, 75-104mins- exclusive of procedures): Not Applicable
ED Attending Note
-
Portions of this chart may have been created with voice recognition software.� Occasional wrong word or��sound alike� substitutions may have occurred due to the inherent limitations of voice recognition software.
Discharge Plan
Departure
Patient Disposition: Home (Routine Discharge)
Date of Disposition: 08/17/24
Time of Disposition: 18:18
Patient with high blood pressure during this ER visit?: No
Condition: Good
Discharge Problem:
Bleeding due to dialysis catheter placement, bleeding from dialysis cath incision
Instructions: Stitches - ED discharge instructions
Prescriptions:
No Action
carvedilol 25 mg Tablet
25 mg PO BID
atorvastatin 20 mg Tablet
20 mg PO HS
hydrocodone-acetaminophen 7.5-325 mg Tablet
1 tab PO TIDPRN PRN (Reason: arthritis pain)
bumetanide 2 mg Tablet
2 mg PO DAILY Qty: 30 0RF
Eliquis 5 mg Tablet
5 mg PO BID Qty: 30 0RF
sucroferric oxyhydroxide 500 mg Tablet,Chewable
500 mg PO TID
Referrals:
Misbah Barton DO [Family Provider] -
Activity Restrictions/Additional Instructions:
As we discussed, have the two sutures removed in 5-7 days
Interventions
Interventions:
*Risk Screen - Suicide Last Done: 08/17/24 15:42
*General Assessment Last Done: 08/17/24 15:42
*Neglect/Abuse Screening Last Done: 08/17/24 15:42
*ED- Fall Risk Assessment Last Done: 08/17/24 18:41
*Nursing Disposition Last Done: 08/17/24 18:42
KB-Dczzad-Pqhjnfdbuv Assessment Last Done: 08/17/24 18:06
ED-Male Genitourinary Assessment Last Done: 08/17/24 18:06
Discharge Date and Time
Discharge Date/Time: 08/17/24 18:42
Print Language: SAO TOMEAN
[2024-08-17 18:22] LABS: INR 3.52
[2024-08-17 18:40] VITALS: BP 173/78
== END 2024-08-17 18:42 | disposition home or self-care (01) ==
LOC: EMR 15:39
PROVIDERS: Registered Nurse; EMERGENCY PHYSICIAN Emergency Medicine; FAMILY PHYSICIAN Family Medicine
DX: T82.838A Hemorrhage due to vascular prosthetic devices, implants and grafts, initial encounter (principal); Y83.8 Other surgical procedures as the cause of abnormal reaction of the patient, or of later complication, without mention of misadventure at the time of the procedure; E11.22 Type 2 diabetes mellitus with diabetic chronic kidney disease; I13.2 Hypertensive heart and chronic kidney disease with heart failure and with stage 5 chronic kidney disease, or end stage renal disease; N18.6 End stage renal disease; I50.9 Heart failure, unspecified; Z99.2 Dependence on renal dialysis; I48.91 Unspecified atrial fibrillation; E78.00 Pure hypercholesterolemia, unspecified; Z79.01 Long term (current) use of anticoagulants; Z87.891 Personal history of nicotine dependence
CPT/HCPCS: 12001; 99282; 85610

== ENCOUNTER 2024-08-18 12:04 | Emergency (ER) | payer MEDICARE, OTHER, SELFPAY ==
[2024-08-18 12:15] VITALS: BP 179/89
--- NOTE | 2024-08-18 14:47 | ED.GENMED ---
History of Present Illness
General
Chief Complaint: Catheter/Tube Problem
Source: patient
Exam Limitations: none
Time Seen by Provider: 08/18/24 13:22
Nursing documentation reviewed up to this point in time: agreed with
History of Present Illness
History of Present Illness:
69-year-old male past medical history of A-fib currently on Coumadin, heart failure, currently on dialysis recent permacath placed to the right chest able to be used fully with a full session yesterday. Ongoing bleeding today INR was 3.8 yesterday.
Held Coumadin dosing today. Denies any chest pain shortness of breath lightheadedness otherwise.
Past History
Past History
ED Past Medical History: Arrthythmia (Afib on Coumadin), CHF, HTN, Hypercholesterolemia, NIDDM and Renal failure
Social History
Tobacco: Former smoker
Alcohol: None
Drug: None
Personal:
Living: with family
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
Review of Systems
Review of Systems
Allergies reviewed?: Yes
All Other Systems: ROS reviewed and negative except as documented in HPI and ROS
Phy Exam
Physical Exam
Physical Exam:
GENERAL: Alert , in no apparent distress
EYE: pupils equal and reactive
NECK: Supple, no significant adenopathy.
ENT: o/p clr, mmm.
CARDIAC: Right chest wall permacath in place with small mount of bleeding, no redness or warmth regular rate and rhythm .
LUNGS: Clear breath sounds bilaterally, no acute respiratory distress, no wheezes/rales/rhonchi
ABDOMEN: Soft, without focal tenderness, no r/g, no cvat
NEUROLOGICAL: Alert and oriented, no focal neuro deficits
SKIN: Warm and dry, skin intact.
MUSCULOSKELETAL: No edema, well perfused.
PSYCH: Normal and appropriate interaction.
Course
Orders/Labs/Results
Orders:
Orders
08/18/24 13:56
Consult Interventional Radiology [IRAD CONSULT] Urgent
Consulting Provider: Vik Arguello
Was physician already notified: Yes
Reason for Consult/Procedure: eval and treat bleeding hd catheter, R chest wall.
Acknowledgement that appropriate orders are entered: Yes
Vital Signs
Initial and Last Documented VS:
Initial Vital Signs
Temp Pulse Resp BP Pulse Ox
98.3 F 67 16 179/89 100
08/18/24 12:15 08/18/24 12:15 08/18/24 12:15 08/18/24 12:15 08/18/24 12:15
Last Documented Vital Signs
Temp Pulse Resp BP Pulse Ox
98.3 F 69 16 179/89 100
08/18/24 12:15 08/18/24 12:15 08/18/24 12:15 08/18/24 12:15 08/18/24 12:15
MDM/Problems Addressed
MDM/Problems Addressed:
69-year-old male presenting to the emergency department today with concerns of bleeding from his primary catheter his right chest chest wall. Case was discussed with interventional radiology who placed the catheter 2 days ago. Patient was seen by
the semiconductor technician and was taken to the IR suite for repair. Patient was then sent back to the ER with full resolution of symptoms stable for discharge.
*Critical Care Note
Total Time (30-74mins, 75-104mins- exclusive of procedures): Not Applicable
ED Attending Note
-
Portions of this chart may have been created with voice recognition software.� Occasional wrong word or��sound alike� substitutions may have occurred due to the inherent limitations of voice recognition software.
Discharge Plan
Departure
Patient Disposition: Home (Routine Discharge)
Date of Disposition: 08/18/24
Time of Disposition: 15:33
Patient with high blood pressure during this ER visit?: Yes
Condition: Good
Covid-19: Not Applicable
Discharge Problem:
Bleeding due to dialysis catheter placement
Instructions: BLOOD PRESSURE
Prescriptions:
No Action
carvedilol 25 mg Tablet
25 mg PO BID
atorvastatin 20 mg Tablet
20 mg PO HS
hydrocodone-acetaminophen 7.5-325 mg Tablet
1 tab PO TIDPRN PRN (Reason: arthritis pain)
bumetanide 2 mg Tablet
2 mg PO DAILY Qty: 30 0RF
Eliquis 5 mg Tablet
5 mg PO BID Qty: 30 0RF
sucroferric oxyhydroxide 500 mg Tablet,Chewable
500 mg PO TID
Referrals:
Misbah Barton DO [Family Provider] -
Activity Restrictions/Additional Instructions:
You came to the emergency department today with concerns of bleeding from your dialysis catheter. This was repaired here. Please follow-up with your special agent secret service about your elevated INR. Return for any worsening, new or concerning symptoms.
Interventions
Interventions:
*Risk Screen - Suicide Last Done: 08/18/24 12:18
*Neglect/Abuse Screening Last Done: 08/18/24 12:18
Discharge Date and Time
Print Language: BURMESE
== END 2024-08-18 15:35 | disposition home or self-care (01) ==
LOC: EMR 12:04
PROVIDERS: CONSULT PHYSICIAN Radiology Vascular & Interventional Radiology; EMERGENCY PHYSICIAN Emergency Medicine; FAMILY PHYSICIAN Family Medicine
DX: T82.838A Hemorrhage due to vascular prosthetic devices, implants and grafts, initial encounter (principal); Y92.9 Unspecified place or not applicable; I11.0 Hypertensive heart disease with heart failure; I50.9 Heart failure, unspecified; I48.91 Unspecified atrial fibrillation; E78.00 Pure hypercholesterolemia, unspecified; E11.9 Type 2 diabetes mellitus without complications; Z79.01 Long term (current) use of anticoagulants; Z87.891 Personal history of nicotine dependence; Z99.2 Dependence on renal dialysis
CPT/HCPCS: 99282

== ENCOUNTER → 2024-10-22 06:24 | Outpatient (REF) | payer MEDICARE, OTHER, SELFPAY | LOC: RAD 06:24 | PROVIDERS: ATTENDING PHYSICIAN Surgery Vascular Surgery; FAMILY PHYSICIAN Family Medicine | DX: Z01.818 Encounter for other preprocedural examination (principal); N18.4 Chronic kidney disease, stage 4 (severe) | CPT/HCPCS: 93985 ==

== ENCOUNTER 2024-12-21 08:48 | Day surgery (SDC) | payer MEDICARE, OTHER, SELFPAY ==
[2024-12-21 09:16] LABS: Hematocrit 36.8 % (39.0-52.0); Hemoglobin 12.3 g/dL (13.0-18.0); Mean Corp Hgb Conc. 33.4 g/dL (33.0-37.0); Mean Corpuscular Volume 100.8 fL (80.0-94.0); Platelet Count 214 10^3/uL (130-400); Red Cell Dist. Width 13.7 % (11.5-14.5)
[2024-12-21 09:26] LABS: INR 1.09; PT 14.4 Sec (11.4-14.6)
[2024-12-21 09:27] LABS: APTT 28.2 Sec (23.4-35.0)
[2024-12-21 09:56] LABS: Blood Urea Nitrogen 54 mg/dl (9-20); Calcium 9.2 mg/dl (8.4-10.2); Carbon Dioxide 28 mmol/L (22-30); Chloride 97 mmol/L (98-107); Potassium 5.4 mmol/L (3.5-5.1); Sodium 139 mmol/L (135-145); eGFR 7.47
[2024-12-21 10:13] LABS: Glucose 155 mg/dl (70-99)
[2024-12-21 10:19] VITALS: BP 157/63
[2024-12-21 10:20] VITALS: BP 157/63
[2024-12-21 10:37] VITALS: BMI 32.2
[2024-12-21] MEDS: PERIDEX 0.12% ORAL RINSE 15 ML PO (10:39)
[2024-12-21] MEDS: BACTROBAN NASAL 1 GRAM NASAL (10:39)
[2024-12-21 10:41] LABS: Glucose - Point of Care 111 mg/dl (70-99)
[2024-12-21] MEDS: NSS 500 IV (10:48)
--- NOTE | 2024-12-21 11:03 | HP.FOC2 ---
Focused History & Physical
Chief Complaint
HPI:
Chief Complaint: End-stage renal disease
HPI / Indication for Planned Procedure: 69-year-old male here for planned left upper extremity AV fistula creation with Dr. Gomez. Patient presents at baseline health with no reports of recent illness or injury. Patient had vein mapping as
outpatient. Patient wishes to proceed with planned procedure today.
Relevant Past Medical History: Other (Hypertension, hyperlipidemia, type 2 diabetes)
Relevant Social History: Negative
Relevant Family History: Positive for (Mother-leukemia, no CKD)
Relevant Past Surgical History: Positive for (Dialysis port)
Review of Systems
Review of Pertinent Systems: All Systems Negative
Medication
See Medication form for detailed medications: Yes
Medication List (including Herbals & OTC):
atorvastatin 20 mg tablet 20 mg PO HS High Cholesterol 04/22/24
carvedilol 25 mg tablet 25 mg PO BID Blood Pressure 04/22/24
hydrocodone 7.5 mg-acetaminophen 325 mg tablet 1 tab PO TIDPRN PRN arthritis pain 04/22/24
apixaban 5 mg tablet (Eliquis) 5 mg PO BID #30 tabs 05/24/24
bumetanide 2 mg tablet 2 mg PO DAILY #30 tabs 05/24/24
ferric citrate 210 mg iron tablet (Auryxia) 420 mg PO TID 12/20/24
Medications Reviewed: Yes
Allergies and Reactions
Patient has Allergies: Yes
Noted Allergies and Reactions:
Allergy/AdvReac Type Severity Reaction Status Date / Time
iodine Allergy Unknown Verified 12/20/24 16:59
Pertinent Physical Exam
All Other Systems: Negative
Head/Neck: Normal
Lungs: Normal
Heart: Normal
Abdomen: Normal
Extremities: Normal
Diagnosis / Assessment
End-stage renal disease on HD
Plan / Procedure
Here for planned left upper extremity AV fistula creation with Dr. Gomez
Anesthesia/Sedation to be done by Anesthesia Provider: Yes
--- NOTE | 2024-12-21 11:40 | W.PN.UPDATE ---
Update Note
Progress Note Update
Pt does not want to stay for his scheduled surgery - AVF creation
His IV has been placed. He is otherwise ready to go.
I explained that the room is being turned over for his procedure but he is upset about having to wait
He is going to leave and we will have to reschedule
Nathan Gomez
Vascular Surgery [facility]
== END 2024-12-21 11:50 | disposition home or self-care (01) ==
LOC: CATH 08:48
PROVIDERS: ATTENDING PHYSICIAN Surgery Vascular Surgery; OTHER PHYSICIAN Internal Medicine Cardiovascular Disease; PRIMARYCARE PHYSICIAN Family Medicine
DX: I12.0 Hypertensive chronic kidney disease with stage 5 chronic kidney disease or end stage renal disease (principal); E11.22 Type 2 diabetes mellitus with diabetic chronic kidney disease; N18.6 End stage renal disease; Z99.2 Dependence on renal dialysis; Z53.29 Procedure and treatment not carried out because of patient's decision for other reasons; E78.5 Hyperlipidemia, unspecified; Z79.01 Long term (current) use of anticoagulants
CPT/HCPCS: 93005; 80048; 82962; 85027; 85610; 85730

== ENCOUNTER 2025-01-14 11:12 | Emergency (ER) | payer MEDICARE, OTHER, SELFPAY ==
[2025-01-14] VITALS (7 sets, daily range): BP systolic 113–125; BP diastolic 58–71; BMI 29.6
[2025-01-14 11:35] LABS: Hematocrit 38.4 % (39.0-52.0); Hemoglobin 13.0 g/dL (13.0-18.0); Mean Corp Hgb Conc. 33.9 g/dL (33.0-37.0); Mean Corpuscular Volume 98.7 fL (80.0-94.0); Nucleated Red Blood Cells % 0 % (-); Platelet Count 193 10^3/uL (130-400); Red Cell Dist. Width 13.7 % (11.5-14.5)
[2025-01-14 12:13] LABS: Blood Urea Nitrogen 27 mg/dl (9-20); Calcium 9.1 mg/dl (8.4-10.2); Carbon Dioxide 29 mmol/L (22-30); Chloride 95 mmol/L (98-107); Estimated Creatinine Clearance 20 ml/min; Glucose 165 mg/dl (70-99); Sodium 137 mmol/L (135-145); Troponin I 0.017 ng/ml; eGFR 15.63
--- NOTE | 2025-01-14 12:40 | ED.GENMED ---
History of Present Illness
General
Chief Complaint: Chest Pain
Source: patient
Exam Limitations: none
Time Seen by Provider: 01/14/25 11:20
Nursing documentation reviewed up to this point in time: agreed with
History of Present Illness
History of Present Illness:
69-year-old male right chest dialysis catheter dialysis patient with history of A-fib on Eliquis, CHF, HTN, HLD presents for episode of bruised feeling at right upper chest wall catheter insertion site shortly after the dialysis nurse tugged 'pretty
hard' while disconnecting his chest wall catheter after dialysis this a.m. This was about 10:20 a.m. As he walked to his car he felt 'a little short of breath' and 'a little faint.' He sat in his car, turned the air on and felt better.
At this time all his symptoms have subsided.
Past History
Past History
ED Past Medical History: Arrthythmia (Afib on Coumadin), CHF, HTN, Hypercholesterolemia, NIDDM and Renal failure (On dialysis)
ED Past Surgical History: Tonsilectomy and Other (Hemodialysis catheter right upper chest wall)
Social History
Tobacco: Former smoker
Alcohol: None
Drug: None
Personal:
Living: with family
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
Review of Systems
Review of Systems
Allergies reviewed?: Yes
All Other Systems: ROS reviewed and negative except as documented in HPI and ROS
Phy Exam
Physical Exam
Physical Exam:
GENERAL: No acute distress. A&Ox3.
CONSTITUTIONAL: Afebrile.
EYES: clear, conjunctivae normal
ENMT: moist mucus membranes, Pharynx nl
RESPIRATORY: Regular respirations, nonlabored, lungs clear.
CARDIOVASCULAR: Regular rate and rhythm, no murmurs, no rubs.
GI: Soft, nontender, normal BS
MUSCULOSKELETAL: Moves with ease. Well perfused.
SKIN: Warm, dry, pink dressing removed from right upper chest wall dialysis catheter site,. Catheter is clean, the area is clean, no redness or swelling, no drainage, sutures intact.
PSYCH: Normal mood and affect. Well kept, interactive and appropriate
NEUROLOGIC: Awake, alert and oriented. No focal neurological deficits
Scores
Heart Score for Chest Pain Patients
STEMI patient?: Not applicable
Course
Orders/Labs/Results
Orders:
Orders
01/14/25 11:15
Electrocardiogram (*1) Urgent
Reason for Study: Chest Pain
EKG- Treatment ONCE
01/14/25 11:20
CR Chest - 2 Views Urgent
Comment:
Reason For Exam: chest pain
01/14/25 11:27
Basic Metabolic Panel Urgent
Complete Blood Count/With Diff Urgent
Troponin I Urgent
01/14/25 12:56
Add On- LAB Urgent
Tests Added?: magnesium
01/14/25 14:46
Magnesium Urgent
Troponin I Urgent
Abnormal Lab Results
01/14/25
11:27
RBC 3.89 L 10^6/uL
(4.70-6.10)
Hct 38.4 L %
(39.0-52.0)
MCV 98.7 H fL
(80.0-94.0)
MCH 33.4 H pg
(27.0-31.0)
Absolute Lymphs (auto) 1.1 L 10^3/uL
(1.2-3.4)
Neutrophils % 76.6 H %
(42.2-75.2)
Lymphocytes % 13.7 L %
(20.5-51.1)
Chloride 95 L mmol/L
(98-107)
BUN 27 H mg/dl
(9-20)
Creatinine 4.0 H mg/dL
(0.7-1.3)
Glucose 165 H mg/dl
(70-99)
01/14/25 11:27
01/14/25 11:27
Vital Signs
Initial and Last Documented VS:
Initial Vital Signs
Temp Pulse Resp BP Pulse Ox
98.2 F 63 18 123/58 99
01/14/25 11:15 01/14/25 11:15 01/14/25 11:15 01/14/25 11:15 01/14/25 11:15
Last Documented Vital Signs
Temp Pulse Resp BP Pulse Ox
98.2 F 71 12 125/66 99
01/14/25 11:15 01/14/25 15:30 01/14/25 15:30 01/14/25 15:00 01/14/25 12:40
MDM/Problems Addressed
MDM/Problems Addressed:
69-year-old male right chest dialysis catheter dialysis patient with history of A-fib on Eliquis, CHF, HTN, HLD presents for episode of bruised feeling at right upper chest wall catheter insertion site shortly after the dialysis nurse tugged 'pretty
hard' while disconnecting his chest wall catheter after dialysis this a.m. This was about 10:20 a.m. As he walked to his car he felt 'a little short of breath' and 'a little faint.' He sat in his car, turned the air on and felt better.
At this time all his symptoms have subsided.
EKG: Normal sinus, heart rate 63
CBC with no clinically significant abnormality
CMP with no clinically significant abnormality
Troponin WNL
3:30 PM:
Troponin #2 is normal
Patient ready for discharge
*Pulse Oximetry
SaO2: 99
Oxygen Mode of Delivery: Room air
Patient hypoxic: no
*EKG
EKG Intrepretation Date: 01/14/25
Interpretation: normal
Heart Rate: 63
Rate: normal
Rhythm: sinus
[place]: normal axis
Interval: normal interval
QRS Pattern: normal QRS
Ischemia: no ischemia
*Critical Care Note
Total Time (30-74mins, 75-104mins- exclusive of procedures): Not Applicable
ED Attending Note
-
Portions of this chart may have been created with voice recognition software.� Occasional wrong word or��sound alike� substitutions may have occurred due to the inherent limitations of voice recognition software.
Discharge Plan
Departure
Patient Disposition: Home (Routine Discharge)
Date of Disposition: 01/14/25
Time of Disposition: 15:39
Patient with high blood pressure during this ER visit?: No
Condition: Good
Discharge Problem:
Atypical chest pain
Instructions: Chest Pain That Is Not Caused by the Heart (DC)
Prescriptions:
No Action
carvedilol 25 mg Tablet
25 mg PO BID
atorvastatin 20 mg Tablet
20 mg PO HS
hydrocodone-acetaminophen 7.5-325 mg Tablet
1 tab PO TIDPRN PRN (Reason: arthritis pain)
bumetanide 2 mg Tablet
2 mg PO DAILY Qty: 30 0RF
Eliquis 5 mg Tablet
5 mg PO BID Qty: 30 0RF
ferric citrate [Auryxia] 210 mg iron Tablet
420 mg PO TID
Referrals:
Misbah Barton DO [Family Provider, Family Practice] - As needed
Activity Restrictions/Additional Instructions:
As we discussed, your workup here today shows nothing worrisome. Your catheter is in the correct place. Chest x-ray shows nothing worrisome
No sign of heart attack or any injury to your heart
Interventions
Interventions:
*Risk Screen - Suicide Last Done: 01/14/25 11:19
*General Assessment Last Done: 01/14/25 11:22
*Neglect/Abuse Screening Last Done: 01/14/25 11:19
*ED- Fall Risk Assessment Last Done: 01/14/25 11:22
*Nursing Disposition Last Done: 01/14/25 15:53
ED- Cardiac Assessment Last Done: 01/14/25 11:21
Discharge Date and Time
Discharge Date/Time: 01/14/25 15:53
Print Language: CANADIAN
[2025-01-14 15:09] LABS: Magnesium 2.1 mg/dl (1.6-2.3)
[2025-01-14 15:22] LABS: Troponin I 0.018 ng/ml
== END 2025-01-14 15:53 | disposition home or self-care (01) ==
LOC: EMR 11:12
PROVIDERS: EMERGENCY PHYSICIAN Student in an Organized Health Care Education/Training Program; FAMILY PHYSICIAN Family Medicine
DX: R07.89 Other chest pain (principal); I48.91 Unspecified atrial fibrillation; I13.2 Hypertensive heart and chronic kidney disease with heart failure and with stage 5 chronic kidney disease, or end stage renal disease; E11.22 Type 2 diabetes mellitus with diabetic chronic kidney disease; N18.6 End stage renal disease; I50.9 Heart failure, unspecified; Z99.2 Dependence on renal dialysis; Z79.01 Long term (current) use of anticoagulants; E78.00 Pure hypercholesterolemia, unspecified; Z87.891 Personal history of nicotine dependence
CPT/HCPCS: 99285; 71046; 80048; 83735; 84484; 85025; 93005

== ENCOUNTER → 2025-02-09 07:04 | Outpatient (REF) | payer MEDICARE, OTHER, SELFPAY | LOC: HWRCS 07:04 | PROVIDERS: ATTENDING PHYSICIAN Internal Medicine Cardiovascular Disease; FAMILY PHYSICIAN Family Medicine | DX: I10 Essential (primary) hypertension (principal); I48.0 Paroxysmal atrial fibrillation; I13.0 Hypertensive heart and chronic kidney disease with heart failure and stage 1 through stage 4 chronic kidney disease, or unspecified chronic kidney disease; I13.2 Hypertensive heart and chronic kidney disease with heart failure and with stage 5 chronic kidney disease, or end stage renal disease | CPT/HCPCS: 93306 ==